=== PATIENT | male | born 1945 | race Caucasian/White ===

== ENCOUNTER 2017-05-07 12:01 | Inpatient (IN) ==
[2017-05-07] MEDS ORDERED: Acetaminophen 325 MG TABLET PO PRN (16:00)
[2017-05-07] MEDS ORDERED: *HR* Dextrose 50 % in Water (Syg) 50 ML SYRINGE IVP PRN (16:03)
[2017-05-07] MEDS ORDERED: Dextrose Gel 15 GM/37.5 ML TUBE PO PRN ×2 (16:03)
[2017-05-07] MEDS ORDERED: D5% in Water 1,000 ML IVC PRN (16:03)
[2017-05-07] MEDS ORDERED: Naloxone 0.4 MG/ML INJ IVP PRN (16:03)
[2017-05-07] MEDS ORDERED: Insulin LISPRO 300 UNITS/3 ML VIAL SQ SCH ×2 (16:30→21:00)
--- NOTE | 2017-05-07 16:34 | Internal Med History&Physical ---
<Praneeth Shelby J - Last Filed: 05/07/17 16:32> Date of Encounter: 05/07/17 Time of Encounter: 16:32 Assessment and Plan (1) Acute on chronic diastolic CHF (congestive heart failure) Current visit: Yes Status: Acute Congestive heart failure secondary to chronic diastolic dysfunction Dyspnea, weight grain, extremity swelling for the last week with an increase in dyspnea over the last 3 days He reports that he was started on 2 L nasal cannula is at increased 4 L nasal cannula last 3 days in order to maintain SPO2 sats greater than 90% -last TTE in 10/15 shows EF of 50% with moderate diastolic dysfunction -CXR today bilateral pleural effusions, moderate left pleural effusion small right. Left basilar opacity may represent atelectasis and/or infiltrate -Vital signs stable -Diuresis to be managed per nephrology as patient has a history of renal transplant -Strict intake and output monitoring -Daily weights -Continuous telemetry, continuous SPO2 monitoring -O2 per nasal cannula titrate to maintain SPO2 greater than 92% -CBCD, CMP in am -Consult cardiology d/t increasing pleural effusions (extensive cardiac history) -Consult nephrology to help with managing diuretics and for further evaluation of renal function and further recommendations -Consult interventional radiology has left pleural effusion will likely need drained (2) Pleural effusion, bilateral Current visit: Yes Status: Acute left greater than right will likely need drained -consult to IR- they have not returned my call as of this time -Stable on nasal canula (3) S/P kidney transplant Current visit: No Status: Chronic (4) History of renal failure Current visit: Yes Status: Acute Serum creatinine stable improved from prior visit Reporting frequent urination but with a small amount of urine each time voiding (5) HTN (hypertension) Current visit: Yes Status: Acute h/o HTN, SBP 170's and 180's today. Resume antihypertensives. 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 transplanted heart: [place] heart Associated angina: without angina Qualified Code(s): I25.810 - Atherosclerosis of coronary artery bypass graft(s) without angina pectoris (9) DVT prophylaxis Current visit: Yes Status: Acute Heprin 5000 units SC BID Internal Medicine - H&P: HPI Chief complaint: progressive dyspnea x3 days; has had dyspnea over the last year Admitted From: Home Plans for Post Hospital Care: Home History of present illness: Mr. Raymond is a 71 year old male with a PMH of COPD, CHF, CABG, renal artery disease, renal transplant, HLD, HTN, and PAD. He presents to [facility] today with a 3-day h/o increasing dyspnea. He reports that last week his BLE were swollen and he required additional lasix to alleviate his symptoms. Since then he has required daily oxygen at 2 L nasal cannula initially due to dyspnea. He reports that for the last 3 days of dyspnea is impressive and his need to increase nasal cannula to 4 L to maintain SPO2 greater than 90%. He denies any fever, chills, chest pain, nausea, vomiting, dysuria, flank pain, or unilateral extremity swelling or pain. Chest x-ray today reveals moderate left and small right pleural effusion. He is being admitted as inpatient as he will likely need drainage in IR of pleural effusion. Past Med Surg Social Fam HX - Past Medical History Medical history: arthritis, CHF, COPD, coronary artery disease, diabetes, dialysis, GERD, GI bleed, hyperlipidemia, hypertension, peripheral artery disease, renal disease, valvular heart disease Psychiatric history: no psych history - Past Surgical History Surgical History: coronary bypass (CABG), heart valve replacement, other - Social History Smoking Status: Former smoker Smokeless Tobacco Status: No Alcohol use: none Drug use: none - Family History Mother Adopted: No Family Member Ethnicity: Non- Living Status: Hx Family Cardiac Disorders: No Hx Family Respiratory Disorders: No Hx Family Cancer: No Hx Family GI Disorders: Yes (Cholecycstectomy) Hx Family Endocrine Disorder: No Hx Family Neuromuscular Disorders: No Hx Family Neurologic Disorders: No Hx Family HEENT Disorders: No Hx Family Autoimmune Disorders: No Internal Medicine - H&P: Meds Acetaminophen [Tylenol] 325 mg PO Q4HR PRN 12/14/14 [History] Aspirin 81 mg PO DAILY 12/14/14 [History] CycloSPORINE, Mod (Neoral) [Neoral] 50 mg PO QAM 12/14/14 [History] Furosemide [Lasix] 40 mg PO BID 12/14/14 [History] Saccharomyces Boulardii [Probiotic] 250 mg PO DAILY 12/14/14 [History] Sulfamethoxazole/Trimeth DS [Bactrim Ds] 1 each PO DAILY 12/14/14 [History] Tamsulosin [Flomax] 0.4 mg PO DAILY 12/14/14 [History] Folic Acid 1 mg PO DAILY #30 tablet 12/29/14 [Rx] Carvedilol [Coreg] 25 mg PO BID 11/11/15 [History] CycloSPORINE, Mod (Neoral) [Neoral] 25 mg PO QPM 11/11/15 [History] Everolimus [Zortress] 1 mg PO DAILY 11/11/15 [History] FLUoxetine HCl [Prozac] 10 mg PO DAILY 11/11/15 [History] amLODIPine [Norvasc] 2.5 mg PO BID 11/11/15 [History] Atropine 1% Opth Drops 1 drop LEFT EYE BID 05/29/16 [History] Calcitriol [Rocaltrol] 0.25 mcg PO DAILY 05/29/16 [History] Insulin ASPART [Novolog Flexpen] 100 unit SQ QID PRN 05/29/16 [History] Insulin Glargine [Lantus] 15 - 20 unit SQ DAILY 05/29/16 [History] Lactobacillus Combination No.8 [Adult Probiotic] 1 tab PO DAILY 05/29/16 [ History] Budesonide/Formoterol 160/4.5 [Symbicort 160/4.5] 2 puff IH BIDR 11/19/16 [ History] Cholecalciferol (Vitamin D3) [Vitamin D] 400 unit PO DAILY 11/19/16 [History] Glimepiride [Amaryl] 2 mg PO DAILY 11/19/16 [History] Albuterol Sulfate [Albuterol Inhaler] 2 puff IH Q4HR PRN #1 [id number] 01/08/17 [Rx] Albuterol Sulfate [Proair Respiclick] 90 mcg IH Q4H 05/07/17 [History] Dulaglutide [Trulicity] 0.75 mg SQ QWEEK 05/07/17 [History] Ferric Carboxymaltose [Injectafer (For Outpatient Infusion)] 750 mg IV QWEEK 09/16 [History] Mv-Mn/FA/Vit K1/Lycop/Lut/Zeax [Ocuvite Eye + Multi Tablet] 1 each PO DAILY 09/16 [History] Umeclidinium [place] [Incruse Ellipta] 62.5 mcg IH DAILY 05/07/17 [History] 3 Allergy/AdvReac Type Severity Reaction Status Date / Time levofloxacin [From Levaquin] Allergy Nausea Verified 02/27/17 10:20 [id number]-Lll-Cjy Reductase Allergy Weakness Verified 11/03/14 10:21 Inhibitor [Statins] All Systems PM: A 10-system review of systems was performed and is negative for pertinent findings except as documented above in the HPI. - Constitutional Constitutional: no chills, no fever(s), no night sweats - EENT Eyes: no change in vision, no discharge, no pain, no photophobia Ears: no ear discharge, no ear pain, no tinnitus Nose, mouth and throat: no dysphagia, no nasal discharge, no neck pain, no sore throat - Cardiovascular Cardiovascular ROS IM: dyspnea, dyspnea on exertion (Worsens with exertion), edema (Denies any current edema however, admits to bilateral lower extremity edema last week), paroxysmal nocturnal dyspnea, no chest pain, no diaphoresis, no lightheadedness, no palpitations, no syncope - Respiratory Respiratory: cough (Productive, however he is unsure of amount as he swells at) , dyspnea, dyspnea on exertion, no hemoptysis, no wheezing, no pain on inspiration, no chest congestion, no excessive phlegm production, no change in phlegm color, no pain with cough - Gastrointestinal Gastrointestinal: abdominal pain (Diffuse, chronic), no diarrhea, no early satiety, no nausea, no vomiting - Genitourinary Genitourinary ROS male: no dysuria, no flank pain - Musculoskeletal Musculoskeletal ROS IM: no numbness, no tingling - Integumentary Integumentary IM: no rash, no unusual bruising - Neurological Neurological ROS: no confusion, no convulsions, no focal weakness, no numbness, no tingling, no tremor(s) - Constitutional Vitals: Temp Pulse Resp BP Pulse Ox 97.5 F L 86 16 188/94 93 05/07/17 14:07 05/07/17 13:45 05/07/17 13:45 05/07/17 13:45 05/07/17 14:21 General appearance: Present: cooperative, A&O X 3, no acute distress, answers questions appropriately - Head Head exam: Present: atraumatic, normocephalic - Eye Eye exam: Present: PERRL, conjuntiva pink, sclera anicteric Pupils: Present: PERRL - Neck Neck exam general surgery: Present: supple, trachea midline. Absent: lymphadenopathy - Respiratory Respiratory exam: Present: rales (Bilateral posterior bases), respiratory distress (Mild), tachypnea. Absent: accessory muscle use, chest wall tenderness , decreased breath sounds, rhonchi, wheezes - Cardiovascular Cardiovascular exam: Present: RRR, +S1, +S2. Absent: diastolic murmur, gallop, JVD, rubs, systolic murmur - GI/Abdominal GI/Abdominal exam: Present: normal bowel sounds, soft, no peritoneal signs. Absent: distended, tenderness - Extremities Exam Extremities exam: Present: normal capillary refill, warm, radial pulses palpable and symmetrical. Absent: calf tenderness, cyanotic, pedal edema - Neurological Exam Neurological exam: Present: CN II-XII intact, oriented X3, no focal deficits. Absent: pronater drift, facial droop, speech deficit - Skin Skin exam: Present: dry, intact Internal Med - H&P Results - EKG Data -: EKG Interpreted by Myself - EKG Data EKG comments: 05/07/17 16:36 Normal sinus rhythm with first-degree AV block <Darian Avila - Last Filed: 05/07/17 18:09> Date of Encounter: 05/07/17 Internal Medicine - H&P: HPI History of present illness: Mr. Raymond is a 71 year old male All Systems PM: A 10-system review of systems was performed and is negative for pertinent findings except as documented above in the HPI. - Constitutional Vitals: Temp Pulse Resp BP Pulse Ox 97.5 F L 86 16 188/94 93 05/07/17 14:07 05/07/17 13:45 05/07/17 13:45 05/07/17 13:45 05/07/17 14:21 Internal Med - H&P Results - Labs Labs: Cardiac Enzymes 05/07/17 Range/Units 16:42 Troponin I 0.03 (< 0.04) ng/mL - Attending Attestation I examined this patient and my medical decision-making was reviewed with the Resident Physician. I agree with the documented findings, disposition and treatment plan as described except to the extent set forth below.
[2017-05-07] MEDS: Isosorbide MONOnitrate (24 HR) 60 MG TAB.ER.24H PO SCH (17:53)
[2017-05-07] MEDS: *HR* Heparin 5,000 UNIT/ML VIAL SQ SCH (17:53)
[2017-05-07] MEDS: CycloSPORINE, Mod (Neoral) 25 MG CAPSULE PO SCH (18:15)
[2017-05-07] MEDS ORDERED: Patient Taking Own Medication 1 EACH PO SCH ×2 (18:19→18:25)
--- NOTE | 2017-05-07 18:41 | Event Note ---
Date of Encounter: 05/07/17 Time of Encounter: 18:[address] Green who has agreed to see in the morning for possible drainage of Lt pleural effusion.
[2017-05-07] MEDS: Budesonide/Formoterol 160/4.5 MDI IH SCH (19:56)
[2017-05-07] MEDS: amLODIPine 5 MG TABLET PO SCH (23:11)
[2017-05-07] MEDS: Atropine Sulfate 1% 40 DROP/2 ML BOTTLE LEFT EYE SCH (23:15)
[2017-05-08] MEDS: Insulin LISPRO 300 UNITS/3 ML VIAL SQ SCH ×5 (01:13→21:02)
[2017-05-08] MEDS: *HR* Heparin 5,000 UNIT/ML VIAL SQ SCH ×2 (05:00→16:48)
[2017-05-08 05:32] LABS: Hematocrit 35.1 % (37.5-50.1); Hemoglobin 9.9 g/dL (12.9-16.9); Immature Granulocytes % 0.7 % (0-4); Lymphocytes # 0.2 K/mcL (0.6-4.6); Lymphocytes % 13.9 %; Mean Corpuscular HGB Conc 28.2 g/dL (31.6-35.5); Mean Corpuscular Hemoglobin 22.6 pg (28.0-33.3); Mean Platelet Volume 11.2 fL (9.4-12.4); Monocytes # 0.1 K/mcL (0.0-1.3); Neutrophils # 1.2 K/mcL (1.6-8.9); Platelet Count 213 K/mcL (140-400); Red Blood Count 4.39 M/mcL (4.19-5.50); Red Cell Distribution Width 21.1 % (11.5-14.5); Segmented Neutrophils % 79.4 %
[2017-05-08 05:41] LABS: Albumin 3.5 g/dL (3.5-5.7); Albumin/Globulin Ratio 1.2 (1.1-2.2); Bilirubin,Total 0.8 mg/dL (0.3-1.0); Calcium 9.2 mg/dL (8.6-10.3); Globulin 2.9 g/dL (2.4-3.5); Potassium 4.6 mEq/L (3.5-5.1); Total Protein 6.4 g/dL (6.4-8.9)
[2017-05-08 06:10] LABS: Anisocytosis 2+ (Not Present)
[2017-05-08 06:11] LABS: Microcytosis Present (Not Present); Platelet Estimate Normal (Normal)
[2017-05-08] MEDS: Budesonide/Formoterol 160/4.5 MDI IH SCH ×2 (07:51→19:37)
[2017-05-08] MEDS: FLUoxetine HCl 10 MG CAPSULE PO SCH (08:32)
[2017-05-08] MEDS: CycloSPORINE, Mod (Neoral) 25 MG CAPSULE PO SCH ×2 (08:32→16:45)
[2017-05-08] MEDS: Lactobacillus 1 EACH CAP.SPRINK PO SCH (08:32)
[2017-05-08] MEDS: Multivit/Ca/Min/Fe/FA 1 TAB TABLET PO SCH (08:32)
[2017-05-08] MEDS: Cholecalciferol (D-3) 1,000 UNIT TABLET PO SCH (08:32)
[2017-05-08] MEDS: Folic Acid 1 MG TABLET PO SCH (08:32)
[2017-05-08] MEDS: Isosorbide MONOnitrate (24 HR) 60 MG TAB.ER.24H PO SCH (08:33)
[2017-05-08] MEDS: amLODIPine 5 MG TABLET PO SCH ×2 (08:33→21:03)
[2017-05-08] MEDS: Sulfamethoxazole/Trimeth DS 1 EACH TABLET PO SCH (08:33)
[2017-05-08] MEDS: Aspirin 81 MG TAB.CHEW PO SCH (08:34)
[2017-05-08] MEDS: Atropine Sulfate 1% 40 DROP/2 ML BOTTLE LEFT EYE SCH ×2 (08:36→21:02)
[2017-05-08] MEDS: (Everolimus [Zortress] 0.5 MG) PO SCH ×2 (08:37→21:03)
[2017-05-08] MEDS ORDERED: Insulin DETEMIR 100 UNIT/ML X5UNITS SQ SCH ×2 (09:00→09:29)
[2017-05-08] MEDS ORDERED: (Umeclidinium Bromide [Incruse Ellipta] 62.5 MCG) IH SCH (09:00)
[2017-05-08] MEDS ORDERED: SACCHAROMYCES BOULARDII 250 MG PO SCH (09:00)
--- NOTE | 2017-05-08 09:10 | Internal Med Progress Note ---
<Gato Whaley - Last Filed: 05/08/17 17:54> Date of Encounter: 05/08/17 Time of Encounter: 09:10 - Assessment and plan (1) Acute on chronic diastolic CHF (congestive heart failure) Current Visit: Yes Status: Acute Assessment and plan: Patient admitted with increasing shortness of breath, cough, elevated BNP greater than 700, chest x-ray demonstrating bilateral pleural effusions with left greater than right. History of left sided pleural effusions with a history of CABG in 2011. TTE 09/2016 showed 50%. Mild to moderate concentric left ventricular hypertrophy. Moderate left ventricular diastolic dysfunction with elevated filling pressures Atypical septal motion consistent with post-operative status. Normal RV size with low normal function. Mild mitral regurgitation. S/p bioprosthetic aortic valve replacement. Aortic valve is not well visualized. There may be trivial paravalvular regurgitation (PSAX view). Mild pulmonic regurgitation. Trivial pericardial effusion. - History of bioprosthetic AVR - Status post renal transplant, chronic kidney disease likely contributing to volume overload. - Patient has had improvement in respiratory status and decreased oxygen demand since starting IV Lasix and thoracentesis this morning with 900 mL out. - Clinically has mild increased vascular overload, most likely improved since admission. Oxygen saturations 90-92% on room air. Plan: - Appreciate cardiology's input - Continue IV Lasix 40 mg twice a day - Continue 2 g sodium restriction, 2 L fluid restriction - Daily weights, strict intake output monitoring - Maximize cardiac medications: Continue aspirin, Coreg, Lasix. Avoid lisinopril the setting of history of renal transplant and stable chronic kidney disease. (2) COPD (chronic obstructive pulmonary disease) Current Visit: Yes Status: Acute Assessment and plan: COPD history, stable. Qualifiers: Emphysema type: unspecified Qualified Code(s): J43.9 - Emphysema, unspecified (3) History of aortic valve replacement with bioprosthetic valve Current Visit: Yes Status: Acute Assessment and plan: Continue current anticoagulation. Stable. (4) S/P kidney transplant Current Visit: No Status: Chronic Assessment and plan: Documented history. Continue current immunosuppressive medications. (5) DM type 2 (diabetes mellitus, type 2) Current Visit: Yes Status: Acute Assessment and plan: Uncontrolled type 2 diabetes, glucose greater than 400. Plan: - Subcutaneous Levemir 20 units twice a day - Low-dose sliding-scale insulin - Before meals at bedtime glucose checks. Qualifiers: Diabetes mellitus complication status: with circulatory complication Qualified Code(s): E11.51 - Type 2 diabetes mellitus with diabetic peripheral angiopathy without gangrene; Z79.4 - manager long term care (current) use of insulin; Z79.4 - snf (current) use of insulin; Z79.4 - manager long term care (current) use of insulin ; Z79.4 - snf (current) use of insulin (6) DVT prophylaxis Current Visit: Yes Status: Acute Assessment and plan: SQ Heparin - Subjective Interval history: Mr. Raymond 71yo Male seen and evaluated patient bedside this morning. He is alert and awake interactive no acute distress. He states that his breathing is much improved after his thoracentesis which she said was uncomfortable. He denies any other significant problems. He does mention that he is unsure which medications he is supposed to be taking or if he is taking the right. He only takes 6 of his medications but states that he has been taking his renal medications religiously. Prior to coming in he did admit to shortness of breath that had been worsening and difficulty with lying flat. He had discussed his worsening shortness of breath with his primary care provider and was advised at that time to increase his Lasix by mouth to 2 times in the morning and once at night. - Constitutional Vitals: Temp Pulse Resp BP Pulse Ox 97.6 F 77 16 127/61 95 05/08/17 07:05 05/08/17 07:05 05/08/17 07:54 05/08/17 07:05 05/08/17 07:54 General appearance: Present: cooperative, A&O X 3, no acute distress, answers questions appropriately Exam: General: Patient alert, awake, oriented 3, interactive, in no acute distress HEENT: Normocephalic, atraumatic, pupils equal reactive to light, nasal cavity patent and open septum median position, oral mucosa moist, uvula midline, neck supple trachea midline no palpable lymphadenopathy, no thyromegaly. Chest: Symmetric bilateral correlating with respiratory effort, effort nonlabored. Cardiac: Irregularly irregular heart rate and rhythm, grade 2/6 systolic ejection murmur. Radial pulses 2+ bilateral, posterior tibial and dorsal pedal pulses 2+ bilateral. Respiratory: Diminished in left lower lung base, clear to auscultation all lung thakkar. Abdomen: Soft, nontender, positive bowel sounds, no palpable masses appreciated on examination Extremities: Symmetric bilateral, bilateral lower extremities without erythema or edema patient moving all 4 extremities spontaneously. Neurologic: No focal deficits appreciated on examination. Face symmetric, muscle strength symmetric bilateral upper and lower extremities. Internal Medicine: Result - Labs CBC & Chem 7: 05/08/17 04:09 05/08/17 04:09 Labs: Short CBC 05/08/17 Range/Units 04:09 WBC 1.5 L D (4.3-11.1) K/mcL Hgb 9.9 L D (12.9-16.9) g/dL Hct 35.1 L (37.5-50.1) % Plt Count 213 (140-400) K/mcL Neutrophils # 1.2 L (1.6-8.9) K/mcL BMP 05/08/17 04:09 Sodium 133 L Potassium 4.6 Chloride 103 Carbon Dioxide 24 BUN 51 H Creatinine 2.46 H Glucose 339 H Calcium 9.2 Cardiac Enzymes 05/07/17 Range/Units 16:42 Troponin I 0.03 (< 0.04) ng/mL Liver Function 05/08/17 Range/Units 04:09 Total Bilirubin 0.8 (0.3-1.0) mg/dL AST 11 L (13-39) Units/L ALT 9 (7-52) Units/L Alkaline Phosphatase 140 H (34-104) Units/L Albumin 3.5 (3.5-5.7) g/dL Consult Discharge Plan - Plan Referrals: Satya Singh MD [Primary Care Provider] - <Jose L Hernandez - Last Filed: 05/08/17 18:30> Date of Encounter: 05/08/17 - Assessment and plan (1) Acute on chronic diastolic CHF (congestive heart failure) Current Visit: Yes Status: Acute (2) CKD (chronic kidney disease) stage 4, GFR 15-29 ml/min Current Visit: Yes Status: Chronic (3) COPD (chronic obstructive pulmonary disease) Current Visit: Yes Status: Acute Qualifiers: Emphysema type: unspecified Qualified Code(s): J43.9 - Emphysema, unspecified (4) DM (diabetes mellitus) Current Visit: Yes Status: Chronic Qualifiers: Diabetes mellitus type: type 2 Diabetes mellitus complication status: with hyperglycemia Diabetes mellitus manager long term care insulin use: with custodial use Qualified Code(s): E11.65 - Type 2 diabetes mellitus with hyperglycemia; Z79.4 - snf (current) use of insulin; Z79.4 - snf (current) use of insulin ; Z79.4 - manager long term care (current) use of insulin; Z79.4 - snf (current) use of insulin (5) HTN (hypertension) Current Visit: Yes Status: Chronic Qualifiers: Hypertension type: essential hypertension Qualified Code(s): I10 - Essential (primary) hypertension (6) S/P kidney transplant Current Visit: No Status: Chronic (7) Anemia Current Visit: No Status: Chronic Qualifiers: Anemia type: due to chronic kidney disease Chronic kidney disease stage: stage 4 (severe) Qualified Code(s): N18.4 - Chronic kidney disease, stage 4 ( severe); D63.1 - Anemia in chronic kidney disease; D63.1 - Anemia in chronic kidney disease - Constitutional Vitals: Temp Pulse Resp BP Pulse Ox 97.7 F 81 16 127/59 91 05/08/17 15:31 05/08/17 15:31 05/08/17 15:31 05/08/17 15:31 05/08/17 15:31 Internal Medicine: Result - Labs CBC & Chem 7: 05/08/17 04:09 05/08/17 04:09 Labs: Short CBC 05/08/17 Range/Units 04:09 WBC 1.5 L D (4.3-11.1) K/mcL Hgb 9.9 L D (12.9-16.9) g/dL Hct 35.1 L (37.5-50.1) % Plt Count 213 (140-400) K/mcL Neutrophils # 1.2 L (1.6-8.9) K/mcL BMP 05/08/17 04:09 Sodium 133 L Potassium 4.6 Chloride 103 Carbon Dioxide 24 BUN 51 H Creatinine 2.46 H Glucose 339 H Calcium 9.2 Liver Function 05/08/17 Range/Units 04:09 Total Bilirubin 0.8 (0.3-1.0) mg/dL AST 11 L (13-39) Units/L ALT 9 (7-52) Units/L Alkaline Phosphatase 140 H (34-104) Units/L Albumin 3.5 (3.5-5.7) g/dL - Impressions Impressions Thoracentesis Ultrasound 05/08/17 00:00 IMPRESSION: 1. Successful ultrasound guided left thoracentesis. D/ / Carlin Green MD / Carlin Green MD Interpreting Provider: Carlin Green MD Chest X-Ray 05/08/17 09:27 IMPRESSION: 1. Decrease in the left pleural effusion. No pneumothorax. 2. Mild improvement in the pulmonary edema. D/ / Wilder Bay MD / Wilder Bay MD Interpreting Provider: Wilder Bay MD - Attending Attestation I examined this patient and my medical decision-making was reviewed with the Resident Physician on 05/08/17. I agree with the documented findings, disposition and treatment plan as described except to the extent set forth below. Mr Raymond is currently admitted for acute on chronic diastolic heart failure. He remains moderate to high risk due to potential for worsening clinical status. Mr Raymond is breathing better after thoracentesis today. No fever. No cough. No worsening edema. Exam Alert. Comfortable Mucus membranes dry Heart not tachy No wheeze abd soft I/P 1. CHF 2. CKD 4 Further diagnoses and plan as above.
--- NOTE | 2017-05-08 09:10 | Nephrology Consult Note ---
Date of Encounter: 05/08/17 Time of Encounter: 09:04 Assessment and Plan (1) CKD (chronic kidney disease) stage 4, GFR 15-29 ml/min Current Visit: Yes Status: Acute Renal function stable CKD stage 4 at baseline Continue strict I&O and daily weights. Monitor BMP. Avoid nephrotoxins Continue current management (2) S/P kidney transplant Current Visit: No Status: Chronic Chronic renal failure, S/P renal transplant in 2012 Avoid nephrotoxins Continue immunosuppressant medications at this time (3) Acute on chronic diastolic CHF (congestive heart failure) Current Visit: Yes Status: Acute Echo 10/24/16 revealed LVEF 50%, bioprosthetic aortic valve with trivial parpavalvular regurgitation Cardiology following, TTE pending (4) Anemia Current Visit: No Status: Chronic Anemia of chronic disease vs. iron deficiency anemia Recent labs on 05/01/17 reveal Iron 22, % iron sat 6%, transferrin 243, ferritin 285, Vit B12 level 503, Folate 17.2 Patient is on Ferahema as an outpatient Continue to monitor Qualifiers: Anemia type: other cause Other causes of anemia: other cause, not classified Qualified Code(s): D64.89 - Other specified anemias (5) Drug-induced leukopenia Current Visit: Yes Status: Acute Leukopenia likely due to immunosuppressant medications in the setting of kidney transplant Continue to monitor (6) History of aortic valve replacement with bioprosthetic valve Current Visit: Yes Status: Acute Management per primary team (7) HTN (hypertension) Current Visit: Yes Status: Acute Continue home meds Qualifiers: Hypertension type: essential hypertension Qualified Code(s): I10 - Essential (primary) hypertension (8) DM (diabetes mellitus) Current Visit: Yes Status: Acute Management per primary team Qualifiers: Diabetes mellitus type: type 2 Diabetes mellitus complication status: with unspecified complications Diabetes mellitus custodial insulin use: with termite control representative use Qualified Code(s): E11.8 - Type 2 diabetes mellitus with unspecified complications; Z79.4 - termite control representative (current) use of insulin; Z79.4 - termite control representative ( current) use of insulin; Z79.4 - termite control representative (current) use of insulin; Z79.4 - termite control representative (current) use of insulin History of Present Illness - Reason for Consult Consult date: 05/07/17 Chronic Kidney Disease (h/o renal transplant; medication management) Requesting physician: Praneeth Shelby - Chief Complaint SOB - History of Present Illness Mr. Raymond is a 71 year old male with a PMH of CHF, HTN, DM, renal artery disease, immunosuppressant use s/p kidney transplant in 2012, and history of porcine aortic valve replacement who presented c/o increasing SOB for the past 3 days prior to arrival. He reports associated leg swelling and requiring additional doses of home Lasix from 40 mg BID to 80 mg in the morning and 40 mg in the evening without relief of current symptoms. He denies fever, chills, CP, N/V/D, dysuria, flank pain, or decreased urination. Chest x-ray revealed moderate left and small right pleural effusions and patient underwent left thoracentesis this AM. Nephrology was consulted for medication management in the setting of renal transplant. Patient's fiberglass pipe covering supervisor is Dr. Hernandez. Past Med Surg Social Fam HX - Past Medical History Medical history: arthritis, CHF, COPD, coronary artery disease, diabetes, dialysis (remote), GERD, GI bleed, hyperlipidemia, hypertension, peripheral artery disease, renal disease, valvular heart disease Psychiatric history: no psych history - Past Surgical History Surgical History: coronary bypass (CABG), heart valve replacement, transplant ( renal), other - Social History Smoking Status: Former smoker Smokeless Tobacco Status: No Alcohol use: none Drug use: none - Family History Mother Adopted: No Family Member Ethnicity: Non- Living Status: Hx Family Cardiac Disorders: No Hx Family Respiratory Disorders: No Hx Family Cancer: No Hx Family GI Disorders: Yes (Cholecycstectomy) Hx Family Endocrine Disorder: No Hx Family Neuromuscular Disorders: No Hx Family Neurologic Disorders: No Hx Family HEENT Disorders: No Hx Family Autoimmune Disorders: No Medications and Allergies Acetaminophen [Tylenol] 325 mg PO Q4HR PRN 12/14/14 [History] Aspirin 81 mg PO DAILY 12/14/14 [History] CycloSPORINE, Mod (Neoral) [Neoral] 50 mg PO QAM 12/14/14 [History] Furosemide [Lasix] 40 mg PO BID 12/14/14 [History] Saccharomyces Boulardii [Probiotic] 250 mg PO DAILY 12/14/14 [History] Sulfamethoxazole/Trimeth DS [Bactrim Ds] 1 each PO DAILY 12/14/14 [History] Tamsulosin [Flomax] 0.4 mg PO DAILY 12/14/14 [History] Folic Acid 1 mg PO DAILY #30 tablet 12/29/14 [Rx] Carvedilol [Coreg] 25 mg PO BID 11/11/15 [History] CycloSPORINE, Mod (Neoral) [Neoral] 25 mg PO QPM 11/11/15 [History] Everolimus [Zortress] 0.5 mg PO BID 11/11/15 [History] FLUoxetine HCl [Prozac] 10 mg PO DAILY 11/11/15 [History] amLODIPine [Norvasc] 2.5 mg PO BID 11/11/15 [History] Atropine 1% Opth Drops 1 drop LEFT EYE BID 05/29/16 [History] Calcitriol [Rocaltrol] 0.25 mcg PO DAILY 05/29/16 [History] Insulin ASPART [Novolog Flexpen] 100 unit SQ QID PRN 05/29/16 [History] Insulin Glargine [Lantus] 15 - 20 unit SQ DAILY 05/29/16 [History] Lactobacillus Combination No.8 [Adult Probiotic] 1 tab PO DAILY 05/29/16 [ History] Budesonide/Formoterol 160/4.5 [Symbicort 160/4.5] 2 puff IH BIDR 11/19/16 [ History] Cholecalciferol (Vitamin D3) [Vitamin D] 400 unit PO DAILY 11/19/16 [History] Glimepiride [Amaryl] 2 mg PO DAILY 11/19/16 [History] Albuterol Sulfate [Albuterol Inhaler] 2 puff IH Q4HR PRN #1 hfa.aer.ad 01/08/17 [Rx] Albuterol Sulfate [Proair Respiclick] 90 mcg IH Q4H 05/07/17 [History] Dulaglutide [Trulicity] 0.75 mg SQ QWEEK 05/07/17 [History] Ferric Carboxymaltose [Injectafer (For Outpatient Infusion)] 750 mg IV QWEEK 09/16 [History] Mv-Mn/FA/Vit K1/Lycop/Lut/Zeax [Ocuvite Eye + Multi Tablet] 1 each PO DAILY 09/16 [History] Umeclidinium [place] [Incruse Ellipta] 62.5 mcg IH DAILY 05/07/17 [History] 3 Allergy/AdvReac Type Severity Reaction Status Date / Time levofloxacin [From Levaquin] Allergy Nausea Verified 02/27/17 10:20 Gmtgknv-Svy-Luz Reductase Allergy Weakness Verified 11/03/14 10:21 Inhibitor [Statins] Review of Systems Constitutional: stops breathing during sleep, weakness, no chills, no fatigue, no fever(s), no lethargy Nose, mouth and throat: no nasal congestion, no sore throat Cardiovascular: dyspnea, edema, orthopnea, paroxysmal nocturnal dyspnea, pedal edema Respiratory: dyspnea, no chest congestion Gastrointestinal: no abdominal pain, no constipation, no nausea, no vomiting Genitourinary Male: no dysuria, no urinary frequency, no urinary urgency Musculoskeletal: no back pain, no numbness, no tingling Psychiatric: confusion, no anxiety, no depression Endocrine: no palpitations, no polydipsia, no polyphagia, no polyuria Exam - Vital Signs Vital signs: Initial Vital Signs Pulse Resp BP Pulse Ox 86 16 188/94 95 05/07/17 13:45 05/07/17 13:45 05/07/17 13:45 05/07/17 13:45 Vital Signs - Last 8 Hours Temp Pulse Resp BP Pulse Ox 05/08/17 07:54 16 95 05/08/17 07:05 97.6 F 77 16 127/61 94 05/08/17 05:03 96 05/08/17 04:14 58 16 155/77 95 Intake and Output 05/07/17 05/08/17 05/08/17 23:59 07:59 15:59 Intake Total 360 / 360 360 / 360 Output Total 400 / 400 0 / 0 Balance -40 / -40 360 / 360 Intake: Oral 360 / 360 360 / 360 Output: Urine 400 / 400 0 / 0 Other: Meal Dinner Percent of Meal Consumed 100% Weight 91.4 kg Blood Glucose* 451 303 Patient Weight 05/08/17 23:59 Weight 91.4 kg - General Appearance General appearance: well-developed, well-nourished, appears started age EENT: ATNC, mucous membranes dry Neck: supple Additional Comments: demininshed breath sounds LLL Cardiology: mid-systolic murmur, edema (1+ pedal edema), regular rate, regular rhythm Gastrointestinal: normoactive bowel sounds, no guarding, obese Integumentary: no rash, warm and dry Neurologic: no focal deficit, alert and oriented x3 Musculoskeletal: no deformities, no erythema, no cyanosis Psychiatric: mood/affect appropriate, cooperative Results - Lab Results 05/08/17 04:09 05/08/17 04:09 Most recent lab results Calcium 9.2 mg/dL (8.6-10.3) 05/08/17 04:09 Consult Discharge Plan - Plan Referrals: Satya Singh MD [Primary Care Provider] -
--- NOTE | 2017-05-08 09:27 | IR Procedure Note ---
Date of procedure: 05/08/17 Consent Obtained: Written consent Timeout: Correct patient and procedure verified, Correct site verified, Time out performed, Skin prep completed Local anesthetic: Lidocaine 1% Indications: SOB with left pleural effusion Procedure Performed: Left thoracentesis Was there an assistant service manager present: No Estimated blood loss (cc): 0 Complications: None; Tolerated procedure well Specimen: sent
--- NOTE | 2017-05-08 09:45 | Internal Med Progress Note ---
Date of Encounter: 05/08/17 Time of Encounter: 09:44 - Assessment and plan (1) Anemia Current Visit: No Status: Chronic Qualifiers: Anemia type: other cause Other causes of anemia: other cause, not classified Qualified Code(s): D64.89 - Other specified anemias (2) Acute on chronic diastolic CHF (congestive heart failure) Current Visit: Yes Status: Acute (3) DVT prophylaxis Current Visit: Yes Status: Acute - Constitutional Vitals: Temp Pulse Resp BP Pulse Ox 97.6 F 77 16 127/61 95 05/08/17 07:05 05/08/17 07:05 05/08/17 07:54 05/08/17 07:05 05/08/17 07:54 General appearance: Present: cooperative, A&O X 3, no acute distress, answers questions appropriately Internal Medicine: Result - Labs CBC & Chem 7: 05/08/17 04:09 05/08/17 04:09 Labs: Short CBC 05/08/17 Range/Units 04:09 WBC 1.5 L D (4.3-11.1) K/mcL Hgb 9.9 L D (12.9-16.9) g/dL Hct 35.1 L (37.5-50.1) % Plt Count 213 (140-400) K/mcL Neutrophils # 1.2 L (1.6-8.9) K/mcL BMP 05/08/17 04:09 Sodium 133 L Potassium 4.6 Chloride 103 Carbon Dioxide 24 BUN 51 H Creatinine 2.46 H Glucose 339 H Calcium 9.2 Cardiac Enzymes 05/07/17 Range/Units 16:42 Troponin I 0.03 (< 0.04) ng/mL Liver Function 05/08/17 Range/Units 04:09 Total Bilirubin 0.8 (0.3-1.0) mg/dL AST 11 L (13-39) Units/L ALT 9 (7-52) Units/L Alkaline Phosphatase 140 H (34-104) Units/L Albumin 3.5 (3.5-5.7) g/dL Consult Discharge Plan - Plan Referrals: Satya Singh MD [Primary Care Provider] -
[2017-05-08] MEDS ORDERED: Insulin DETEMIR 100 UNIT/ML X5UNITS SQ ONE (10:04)
[2017-05-08] MEDS: Furosemide 40 MG/4 ML VIAL IVP SCH ×2 (12:21→16:45)
--- NOTE | 2017-05-08 13:00 | Cardiology Consult Note ---
Date of Encounter: 05/08/17 Time of Encounter: 11:30 Assessment and Plan (1) CHF (congestive heart failure) Current Visit: No Status: Acute Acute on chronic diastolic CHF. Reports eating high sodium diet. He eats TV dinners and canned soup. Declined motion picture equipment supervisor consult, says it will not change anything. CXR shows bilateral pleural effusions with L greater than R. H/o chronic left sided pleural effusion since CABG in 2011. S/p thoracentesis with 900 cc removed. Agree with IV lasix until euvolemic. Nephrology was consulted due to history of kidney transplant. Kidney function is stable. CHF education reviewed. TTE 09/2016 showed 50%. Mild to moderate concentric left ventricular hypertrophy. Moderate left ventricular diastolic dysfunction with elevated filling pressures Atypical septal motion consistent with post-operative status. Normal RV size with low normal function. Mild mitral regurgitation. S/p bioprosthetic aortic valve replacement. Aortic valve is not well visualized. There may be trivial paravalvular regurgitation (PSAX view). Mild pulmonic regurgitation. Trivial pericardial effusion. Continue strict I&O and daily weights. Monitor BMP. CHF education reviewed. Qualifiers: Congestive heart failure type: unspecified congestive heart failure type Congestive heart failure chronicity: chronic Qualified Code(s): I50.9 - Heart failure, unspecified (2) CAD (coronary artery disease) of artery bypass graft Current Visit: Yes Status: Chronic H/o of 4v CABG and bioprosthetic AVR in 2011. He admits to chest heaviness associated with his SOB prior to admission. Now pain free. Troponin negative. EKG shows SR with LBBB. Known LBBB. Check TTE. Continue asa, statin, and bb. Qualifiers: [place] vs. transplanted heart: [place] heart Associated angina: without angina Qualified Code(s): I25.810 - Atherosclerosis of coronary artery bypass graft(s) without angina pectoris Discussion w patient/family: The assessment and plan as outlined above was discussed with the patient and/or family members who expressed understanding and agreement. All questions were answered. Thank you for involving us in the care of your patient. Please call with any questions. History of Present Illness Consult date: 05/08/17 Requesting physician: Gato Whaley Consult reason: DCHF Chief complaint: SOB, chest heaviness History of present illness: Mr. Raymond is a 71 year old male with a past medical history of 4V CABG and bio -prosthetic AVR in 2011, kidney transplant in 2013, DM, HTN, HLD, PVD, and COPD on home O2. He presented to [facility] with increasing SOB and BLE edema. Admits to chest heaviness with is SOB. Reports he was recently recommended to increase his lasix from 40 mg BID to 80 mg in the morning and 40 mg in the evening. His symptoms initially improved. Over the past three days his SOB returned and he required a higher amount of his home oxygen to keep his oxygen saturation above 90%. He underwent thoracentesis this morning with IR. Reports improvement in symptoms since admission. Past Med Surg Social Fam HX - Past Medical History Medical history: arthritis, CHF, COPD, coronary artery disease, diabetes, dialysis (remote), GERD, GI bleed, hyperlipidemia, hypertension, peripheral artery disease, renal disease, valvular heart disease Psychiatric history: no psych history - Past Surgical History Surgical History: coronary bypass (CABG), heart valve replacement, transplant ( renal), other - Social History Smoking Status: Former smoker Smokeless Tobacco Status: No Alcohol use: none Drug use: none - Family History Mother Adopted: No Family Member Ethnicity: Non- Living Status: Hx Family Cardiac Disorders: No Hx Family Respiratory Disorders: No Hx Family Cancer: No Hx Family GI Disorders: Yes (Cholecycstectomy) Hx Family Endocrine Disorder: No Hx Family Neuromuscular Disorders: No Hx Family Neurologic Disorders: No Hx Family HEENT Disorders: No Hx Family Autoimmune Disorders: No Medications and Allergies Acetaminophen [Tylenol] 325 mg PO Q4HR PRN 12/14/14 [History] Aspirin 81 mg PO DAILY 12/14/14 [History] CycloSPORINE, Mod (Neoral) [Neoral] 50 mg PO QAM 12/14/14 [History] Furosemide [Lasix] 40 mg PO BID 12/14/14 [History] Saccharomyces Boulardii [Probiotic] 250 mg PO DAILY 12/14/14 [History] Sulfamethoxazole/Trimeth DS [Bactrim Ds] 1 each PO DAILY 12/14/14 [History] Tamsulosin [Flomax] 0.4 mg PO DAILY 12/14/14 [History] Folic Acid 1 mg PO DAILY #30 tablet 12/29/14 [Rx] Carvedilol [Coreg] 25 mg PO BID 11/11/15 [History] CycloSPORINE, Mod (Neoral) [Neoral] 25 mg PO QPM 11/11/15 [History] Everolimus [Zortress] 0.5 mg PO BID 11/11/15 [History] FLUoxetine HCl [Prozac] 10 mg PO DAILY 11/11/15 [History] amLODIPine [Norvasc] 2.5 mg PO BID 11/11/15 [History] Atropine 1% Opth Drops 1 drop LEFT EYE BID 05/29/16 [History] Calcitriol [Rocaltrol] 0.25 mcg PO DAILY 05/29/16 [History] Insulin ASPART [Novolog Flexpen] 100 unit SQ QID PRN 05/29/16 [History] Insulin Glargine [Lantus] 15 - 20 unit SQ DAILY 05/29/16 [History] Lactobacillus Combination No.8 [Adult Probiotic] 1 tab PO DAILY 05/29/16 [ History] Budesonide/Formoterol 160/4.5 [Symbicort 160/4.5] 2 puff IH BIDR 11/19/16 [ History] Cholecalciferol (Vitamin D3) [Vitamin D] 400 unit PO DAILY 11/19/16 [History] Glimepiride [Amaryl] 2 mg PO DAILY 11/19/16 [History] Albuterol Sulfate [Albuterol Inhaler] 2 puff IH Q4HR PRN #1 hfa.aer.ad 01/08/17 [Rx] Albuterol Sulfate [Proair Respiclick] 90 mcg IH Q4H 05/07/17 [History] Dulaglutide [Trulicity] 0.75 mg SQ QWEEK 05/07/17 [History] Ferric Carboxymaltose [Injectafer (For Outpatient Infusion)] 750 mg IV QWEEK 09/16 [History] Mv-Mn/FA/Vit K1/Lycop/Lut/Zeax [Ocuvite Eye + Multi Tablet] 1 each PO DAILY 09/16 [History] Umeclidinium [place] [Incruse Ellipta] 62.5 mcg IH DAILY 05/07/17 [History] 3 Allergy/AdvReac Type Severity Reaction Status Date / Time levofloxacin [From Levaquin] Allergy Nausea Verified 02/27/17 10:20 Dwqynmr-Nyr-Gaq Reductase Allergy Weakness Verified 11/03/14 10:21 Inhibitor [Statins] All Systems Review: A 10-system review of systems was performed and is negative for pertinent findings except as documented above in the HPI. Physical Examination Vital Signs, Last 4 Hours Temp Pulse Resp BP Pulse Ox 05/08/17 11:52 97 F L 77 16 135/55 90 05/08/17 11:09 16 90 General: Conversant, No Apparent Distress HEENT: Atraumatic, Normocephaly, Mucus Membranes Moist Neck: No JVD, Normal carotid pulses Cardiac: Other (Respirations shallow. Diminished breath sounds. ) Lungs: Normal Breath Sounds, No Wheeze, Rales, Rhonchi Neuro: Alert and responsive, No focal deficits noted Abdomen: Soft, Non-Tender Skin: No rashes noted on visualized skin Musculoskeletal: No Chest Wall Tenderness Extremities: No Clubbing, No Cyanosis, Normal Pulses, Other (2+ BLE edema) Results 05/08/17 04:09 05/08/17 04:09 Lab Results 05/07/17 05/08/17 05/08/17 16:42 04:09 04:09 WBC 1.5 L D Hgb 9.9 L D Hct 35.1 L Plt Count 213 Sodium 133 L Potassium 4.6 Chloride 103 Carbon Dioxide 24 BUN 51 H Creatinine 2.46 H Glucose 339 H Calcium 9.2 Total Bilirubin 0.8 AST 11 L ALT 9 Alkaline Phosphatase 140 H Troponin I 0.03 - Imaging and Cardiology Echo: report reviewed - EKG Interpretation EKG results cardiology: personally reviewed Consult Discharge Plan - Plan Referrals: Satya Singh MD [Primary Care Provider] -
[2017-05-08] MEDS: Insulin DETEMIR 100 UNIT/ML X5UNITS SQ SCH (21:07)
[2017-05-08 21:38] LABS: RBC,Pleural Fluid 0.022 M/mcL
[2017-05-08 21:58] LABS: LDH,Pleural Fluid 99 Units/L (No Ref Range); Total Protein,Pleural Fluid < 3.0 g/dL (No Ref Range)
[2017-05-08 22:40] LABS: Appearance of Pleural Fl Hazy (Clear)
[2017-05-09 04:52] LABS: Glucose,Pleural Fluid 361 mg/dL (No Ref Range)
[2017-05-09] MEDS: *HR* Heparin 5,000 UNIT/ML VIAL SQ SCH ×2 (05:41→16:07)
[2017-05-09 06:56] LABS: Hematocrit 33.9 % (37.5-50.1); Hemoglobin 9.8 g/dL (12.9-16.9); Immature Granulocytes % 0.4 % (0-4); Immature Platelets 5.2 % (1.1-6.1); Lymphocytes # 0.2 K/mcL (0.6-4.6); Lymphocytes % 4.3 %; Mean Corpuscular HGB Conc 28.9 g/dL (31.6-35.5); Mean Corpuscular Volume 79.4 fL (83.0-100.0); Mean Platelet Volume 10.2 fL (9.4-12.4); Monocytes # 0.3 K/mcL (0.0-1.3); Monocytes % 6.7 %; Neutrophils # 4.5 K/mcL (1.6-8.9); Nucleated Red Blood Cells 0.4 /100 WBC (0); Platelet Count 215 K/mcL (140-400); Red Blood Count 4.27 M/mcL (4.19-5.50); Red Cell Distribution Width 21.4 % (11.5-14.5); Segmented Neutrophils % 88.6 %
--- NOTE | 2017-05-09 07:04 | Nephrology Progress Note ---
Date of Encounter: 05/09/17 Time of Encounter: 07:03 - Assessment and Plan (1) CKD (chronic kidney disease) stage 4, GFR 15-29 ml/min Current Visit: Yes Status: Chronic SrCr slightly increased today CKD stage 4 at baseline Continue strict I&O and daily weights. Monitor BMP. Avoid nephrotoxins Decrease Lasix from 40MG IV BID to 40MG IV daily dosing Continue to monitor (2) S/P kidney transplant Current Visit: No Status: Chronic Chronic renal failure, S/P renal transplant in 2012 Avoid nephrotoxins Continue immunosuppressant medications at this time (3) Acute on chronic diastolic CHF (congestive heart failure) Current Visit: Yes Status: Acute Echo 05/08/17 revealed LVEF 45%, LVH, bioprosthetic aortic valve with trace aortic regurgitation Cardiology following (4) Anemia Current Visit: No Status: Chronic Anemia of chronic disease vs. iron deficiency anemia Recent labs on 05/01/17 reveal Iron 22, % iron sat 6%, transferrin 243, ferritin 285, Vit B12 level 503, Folate 17.2 Patient is on Ferahema as an outpatient Continue to monitor Qualifiers: Anemia type: due to chronic kidney disease Chronic kidney disease stage: stage 4 (severe) Qualified Code(s): N18.4 - Chronic kidney disease, stage 4 ( severe); D63.1 - Anemia in chronic kidney disease; D63.1 - Anemia in chronic kidney disease (5) History of aortic valve replacement with bioprosthetic valve Current Visit: Yes Status: Acute Management per primary team (6) Atrial fibrillation Current Visit: Yes Status: Acute Findings on telemetry consistent with atrial fibrillation for which he has multiple risk factors. CHADSvasc score 5 Patient reluctant to take anticoagulation, but recommend Eliquis to reduce risk of CVA. Management per cardiology and primary team Qualifiers: Atrial fibrillation type: unspecified Qualified Code(s): I48.91 - Unspecified atrial fibrillation (7) HTN (hypertension) Current Visit: Yes Status: Chronic Continue home meds Qualifiers: Hypertension type: essential hypertension Qualified Code(s): I10 - Essential (primary) hypertension (8) DM (diabetes mellitus) Current Visit: Yes Status: Chronic Management per primary team Qualifiers: Diabetes mellitus type: type 2 Diabetes mellitus complication status: with hyperglycemia Diabetes mellitus oil heaterman insulin use: with prison use Qualified Code(s): E11.65 - Type 2 diabetes mellitus with hyperglycemia; Z79.4 - MCFP (current) use of insulin; Z79.4 - intermodal dispatcher (current) use of insulin ; Z79.4 - MCFP (current) use of insulin; Z79.4 - MCFP (current) use of insulin (9) Hypophosphatemia Current Visit: Yes Status: Acute Supplement phos Continue to monitor (10) Drug-induced leukopenia Current Visit: Yes Status: Acute Improved Leukopenia likely due to immunosuppressant medications in the setting of kidney transplant Continue to monitor Subjective Principal diagnosis: CHF Interval history: Patient seen and examined resting comfortably in bed. Patient reports improved SOB today but is not back to his baseline. He had 2300cc UOP yesterday and reports hypoxia while waking to the bathroom. Objective - Vital Signs Vital signs: Vital Signs Temp Pulse Resp BP Pulse Ox 05/09/17 04:48 99.0 F 65 20 162/72 95 05/09/17 03:06 20 98 05/08/17 23:54 20 93 05/08/17 20:26 98.9 F 82 19 130/55 92 05/08/17 19:38 17 93 05/08/17 15:31 97.7 F 81 16 127/59 91 05/08/17 11:52 97 F L 77 16 135/55 90 05/08/17 11:09 16 90 05/08/17 07:54 16 95 05/08/17 07:05 97.6 F 77 16 127/61 94 Intake and Output 05/08/17 05/08/17 05/09/17 15:59 23:59 07:59 Intake Total 240 / 240 Output Total 900 / 900 1400 / 1400 200 / 200 Balance -660 / -660 -1400 / -1400 -200 / -200 Intake: Oral 240 / 240 Output: Urine 900 / 900 1400 / 1400 200 / 200 Other: Meal Breakfast Percent of Meal Consumed 100% Blood Glucose* 306 217 - General Appearance General appearance: Present: well-developed, well-nourished, appears started age EENT: Present: ATNC, mucous membranes moist Respiratory: Present: course breath sounds (demininshed breath sounds LLL) Cardiology: Present: no murmurs, no rub, no gallops, edema (1+ pedal edema) Gastrointestinal: Present: normoactive bowel sounds, no tenderness, no guarding Integumentary: Present: no rash, warm and dry Neurologic: Present: no focal deficit, alert and oriented x3 Musculoskeletal: Present: no deformities, no erythema, no cyanosis Psychiatric: Present: mood/affect appropriate, cooperative - Lab 05/09/17 06:46 05/09/17 06:07 Most recent lab results Calcium 9.2 mg/dL (8.6-10.3) 05/08/17 04:09 Phosphorus 2.1 mg/dL (2.7-4.5) L 05/08/17 11:54 Consult Discharge Plan - Plan Instructions: Heart Failure (DC), Diabetes Mellitus Type 2 in Adults (DC), Chronic Obstructive Pulmonary Disease (DC), Chronic Hypertension (DC), Anemia ( GEN) Referrals: Satya Singh MD [Primary Care Provider] -
[2017-05-09 07:08] LABS: Albumin 3.4 g/dL (3.5-5.7); Albumin/Globulin Ratio 1.3 (1.1-2.2); Bilirubin,Total 0.5 mg/dL (0.3-1.0); Calcium 8.9 mg/dL (8.6-10.3); Globulin 2.6 g/dL (2.4-3.5); Potassium 4.9 mEq/L (3.5-5.1)
[2017-05-09] MEDS: Budesonide/Formoterol 160/4.5 MDI IH SCH (07:58)
[2017-05-09 08:08] LABS: Hypochromasia Present (Not Present)
[2017-05-09 08:09] LABS: Large Platelets Present (Not Present); Platelet Estimate Normal (Normal)
[2017-05-09] MEDS: Furosemide 40 MG/4 ML VIAL IVP SCH (08:25)
[2017-05-09] MEDS: Multivit/Ca/Min/Fe/FA 1 TAB TABLET PO SCH (08:26)
[2017-05-09] MEDS: Sulfamethoxazole/Trimeth DS 1 EACH TABLET PO SCH (08:26)
[2017-05-09] MEDS: amLODIPine 5 MG TABLET PO SCH ×2 (08:26→22:39)
[2017-05-09] MEDS: Isosorbide MONOnitrate (24 HR) 60 MG TAB.ER.24H PO SCH (08:26)
[2017-05-09] MEDS: CycloSPORINE, Mod (Neoral) 25 MG CAPSULE PO SCH ×2 (08:26→16:08)
[2017-05-09] MEDS: Folic Acid 1 MG TABLET PO SCH (08:26)
[2017-05-09] MEDS: Insulin LISPRO 300 UNITS/3 ML VIAL SQ SCH ×4 (08:30→22:38)
[2017-05-09] MEDS: Atropine Sulfate 1% 40 DROP/2 ML BOTTLE LEFT EYE SCH ×2 (08:32→22:38)
[2017-05-09] MEDS: Aspirin 81 MG TAB.CHEW PO SCH (08:39)
[2017-05-09] MEDS: Lactobacillus 1 EACH CAP.SPRINK PO SCH (08:39)
[2017-05-09] MEDS: FLUoxetine HCl 10 MG CAPSULE PO SCH (08:40)
[2017-05-09] MEDS: Cholecalciferol (D-3) 1,000 UNIT TABLET PO SCH (08:40)
[2017-05-09] MEDS: Insulin DETEMIR 100 UNIT/ML X5UNITS SQ SCH ×2 (08:42→22:39)
[2017-05-09] MEDS: (Everolimus [Zortress] 0.5 MG) PO SCH ×2 (08:42→22:41)
--- NOTE | 2017-05-09 10:11 | Cardiology Progress Note ---
Date of Encounter: 05/09/17 Time of Encounter: 08:00 Assessment and Plan (1) CHF (congestive heart failure) Current Visit: No Status: Acute Acute on chronic diastolic CHF. Reports eating high sodium diet. He eats TV dinners and canned soup. Declined evidence specialist consult, says it will not change anything. CXR shows bilateral pleural effusions with L greater than R and pulmonary edema consistent with CHF. Repeat CXR showed decreased L pleural effusion and decreased pulmonary edema. H/o chronic left sided pleural effusion since CABG in 2011. S/p thoracentesis with 900 cc removed yesterday. Agree with IV lasix until euvolemic. Nephrology was consulted due to history of kidney transplant. Kidney function is stable. Improving. CHF education reviewed. TTE 09/2016 showed 50%. Mild to moderate concentric left ventricular hypertrophy. Moderate left ventricular diastolic dysfunction with elevated filling pressures Atypical septal motion consistent with post-operative status. Normal RV size with low normal function. Mild mitral regurgitation. S/p bioprosthetic aortic valve replacement. Aortic valve is not well visualized. There may be trivial paravalvular regurgitation (PSAX view). Mild pulmonic regurgitation. Trivial pericardial effusion. Continue strict I&O and daily weights. Monitor BMP. CHF education reviewed. Low sodium diet stressed. Continue IV lasix for 24 more hours and convert to oral lasix 40 mg BID at home. TTE pending. If no significant change from previous no further cardiac testing will be recommended. Out-patient cardiology f/u will be coordinated. Qualifiers: Congestive heart failure type: unspecified congestive heart failure type Congestive heart failure chronicity: chronic Qualified Code(s): I50.9 - Heart failure, unspecified (2) CAD (coronary artery disease) of artery bypass graft Current Visit: Yes Status: Chronic H/o of 4v CABG and bioprosthetic AVR in 2011. He admits to chest heaviness associated with his SOB prior to admission. Now pain free. Troponin negative. EKG shows SR with LBBB. Known LBBB. Check TTE. Continue asa, statin, and bb. Qualifiers: [place] vs. transplanted heart: [place] heart Associated angina: without angina Qualified Code(s): I25.810 - Atherosclerosis of coronary artery bypass graft(s) without angina pectoris Discussion w patient/family: The assessment and plan as outlined above was discussed with the patient and/or family members who expressed understanding and agreement. All questions were answered. Thank you for involving us in the care of your patient. Please call with any questions. Subjective Principal diagnosis: DCHF Interval history: Mr. Raymond reports he is breathing better. He denies chest pain. No new complaints. Objective Vital Signs, Last 4 Hours Temp Pulse Resp BP Pulse Ox 05/09/17 07:58 20 95 05/09/17 07:04 97.7 F 74 14 153/64 96 General: Conversant, No Apparent Distress HEENT: Atraumatic, Normocephaly, Mucus Membranes Moist Neck: No JVD, Normal carotid pulses Cardiac: Reg Rate and Rhythm, Normal S1 and S2, No Murmur Lungs: Other (Respirations labored with talking. Expiratory wheezes scattered throughout. ) Neuro: Alert and responsive, No focal deficits noted Abdomen: Soft, Non-Tender Skin: No rashes noted on visualized skin Musculoskeletal: No Chest Wall Tenderness Extremities: No Clubbing, No Cyanosis, Normal Pulses, Other (Trace ankle edema noted.) Results 05/09/17 06:46 05/09/17 06:07 Lab Results 05/09/17 05/09/17 05/09/17 06:07 06:46 06:46 WBC 5.1 D Hgb 9.8 L Hct 33.9 L Plt Count 215 Sodium 133 L Potassium 4.9 Chloride 104 Carbon Dioxide 22 L BUN 69 H Creatinine 2.82 H Glucose 314 H Calcium 8.9 Magnesium 2.1 Total Bilirubin 0.5 AST 16 ALT 8 Alkaline Phosphatase 137 H B-Natriuretic Peptide 05/09/17 06:46 WBC Hgb Hct Plt Count Sodium Potassium Chloride Carbon Dioxide BUN Creatinine Glucose Calcium Magnesium Total Bilirubin AST ALT Alkaline Phosphatase B-Natriuretic Peptide 605 H Thoracentesis Ultrasound 05/08/17 00:00 IMPRESSION: 1. Successful ultrasound guided left thoracentesis. D/ / Carlin Green MD / Carlin Green MD Interpreting Provider: Carlin Green MD Chest X-Ray 05/08/17 09:27 IMPRESSION: 1. Decrease in the left pleural effusion. No pneumothorax. 2. Mild improvement in the pulmonary edema. D/ / Wilder Bay MD / Wilder Bay MD Interpreting Provider: Wilder Bay MD - Imaging and Cardiology Echo: pending - EKG Interpretation EKG results cardiology: personally reviewed Consult Discharge Plan - Plan Referrals: Satya Singh MD [Primary Care Provider] -
--- NOTE | 2017-05-09 11:25 | Internal Med Progress Note ---
<Gato Whaley - Last Filed: 05/09/17 14:33> Date of Encounter: 05/09/17 Time of Encounter: 11:24 - Assessment and plan (1) Acute on chronic diastolic CHF (congestive heart failure) Current Visit: Yes Status: Acute Assessment and plan: Patient admitted with increasing shortness of breath, cough, elevated BNP greater than 700, chest x-ray demonstrating bilateral pleural effusions with left greater than right. History of left sided pleural effusions with a history of CABG in 2011. TTE 09/2016 showed 50%. Mild to moderate concentric left ventricular hypertrophy. Moderate left ventricular diastolic dysfunction with elevated filling pressures Atypical septal motion consistent with post-operative status. Normal RV size with low normal function. Mild mitral regurgitation. S/p bioprosthetic aortic valve replacement. Aortic valve is not well visualized. There may be trivial paravalvular regurgitation (PSAX view). Mild pulmonic regurgitation. Trivial pericardial effusion. - History of bioprosthetic AVR - Status post renal transplant, chronic kidney disease likely contributing to volume overload. Urinary output 3.2 L, negative fluid balance 1.7 L - Patient has had improvement in respiratory status and decreased oxygen demand since starting IV Lasix and thoracentesis this morning with 900 mL out. - Clinically has mild increased vascular overload, most likely improved since admission. Oxygen saturations 90-92% on room air. 05/09: Respiratory status improved, volume status improved. Patient tolerating room air, able to lay flat without discomfort. Plan: - Appreciate cardiology's input - Continue IV Lasix 40 mg once per day. - Continue 2 g sodium restriction, 2 L fluid restriction - Daily weights, strict intake output monitoring - Maximize cardiac medications: Continue aspirin, Coreg, Lasix. Avoid lisinopril the setting of history of renal transplant and stable chronic kidney disease. (2) COPD (chronic obstructive pulmonary disease) Current Visit: Yes Status: Acute Assessment and plan: COPD history, stable. Qualifiers: Emphysema type: unspecified Qualified Code(s): J43.9 - Emphysema, unspecified (3) History of aortic valve replacement with bioprosthetic valve Current Visit: Yes Status: Acute Assessment and plan: Continue current anticoagulation. Stable. (4) S/P kidney transplant Current Visit: No Status: Chronic Assessment and plan: Documented history. Continue current immunosuppressive medications. Creatinine slightly elevated and GFR slightly down in the setting of IV diuresis. Likely setting to diminished afterload, we will reduce IV diuresis to once a day. - Nephrology following appreciate recommendations, discussed plan with nephrology. (5) DM type 2 (diabetes mellitus, type 2) Current Visit: Yes Status: Acute Assessment and plan: Uncontrolled type 2 diabetes, glucose greater than 400. 05/09: Glucose better controlled today in the 200s after changes yesterday. Patient states that he becomes very hypoglycemic below 140 as he usually runs higher. We will continue to monitor at current insulin coverage and adjust as necessary. Plan: - Subcutaneous Levemir 20 units twice a day - Low-dose sliding-scale insulin - Before meals at bedtime glucose checks. Qualifiers: Diabetes mellitus complication status: with circulatory complication Qualified Code(s): E11.51 - Type 2 diabetes mellitus with diabetic peripheral angiopathy without gangrene; Z79.4 - assisted (current) use of insulin; Z79.4 - terminal operations supervisor (current) use of insulin; Z79.4 - terminal operations supervisor (current) use of insulin ; Z79.4 - terminal operations supervisor (current) use of insulin (6) DVT prophylaxis Current Visit: Yes Status: Acute Assessment and plan: SQ Heparin - Subjective Interval history: Mr. Raymond 71yo Male seen and evaluated patient bedside this morning. He is alert and awake interactive no acute distress. He feels that his breathing is much improved compared to admission. He has been off requiring nasal cannula oxygen for over 24 hours, continuing 1 L nasal cannula oxygen for placebo effect according to patient. No other acute discomforts or pains. Understands that we are monitoring his renal function monitoring his glucose is no further questions. - Constitutional Vitals: Temp Pulse Resp BP Pulse Ox 97.7 F 84 14 145/66 96 05/09/17 11:12 05/09/17 11:12 05/09/17 11:12 05/09/17 11:12 05/09/17 11:12 General appearance: Present: cooperative, A&O X 3, no acute distress, answers questions appropriately Exam: General: Patient alert, awake, oriented 3, interactive, in no acute distress HEENT: Normocephalic, atraumatic, pupils equal reactive to light, nasal cavity patent and open septum median position, oral mucosa moist, uvula midline, neck supple trachea midline no palpable lymphadenopathy, no thyromegaly. Chest: Symmetric bilateral correlating with respiratory effort, effort nonlabored. Cardiac: Irregularly irregular heart rate and rhythm, grade 2/6 systolic ejection murmur. Radial pulses 2+ bilateral, posterior tibial and dorsal pedal pulses 2+ bilateral. Respiratory: Diminished in left lower lung base, clear to auscultation all lung thakkar. Abdomen: Soft, nontender, positive bowel sounds, no palpable masses appreciated on examination Extremities: Symmetric bilateral, bilateral lower extremities without erythema or edema patient moving all 4 extremities spontaneously. Neurologic: No focal deficits appreciated on examination. Face symmetric, muscle strength symmetric bilateral upper and lower extremities. Internal Medicine: Result - Labs CBC & Chem 7: 05/09/17 06:46 05/09/17 06:07 Labs: Short CBC 05/09/17 Range/Units 06:46 WBC 5.1 D (4.3-11.1) K/mcL Hgb 9.8 L (12.9-16.9) g/dL Hct 33.9 L (37.5-50.1) % Plt Count 215 (140-400) K/mcL Neutrophils # 4.5 (1.6-8.9) K/mcL BMP 05/09/17 06:07 Sodium 133 L Potassium 4.9 Chloride 104 Carbon Dioxide 22 L BUN 69 H Creatinine 2.82 H Glucose 314 H Calcium 8.9 Liver Function 05/09/17 Range/Units 06:07 Total Bilirubin 0.5 (0.3-1.0) mg/dL AST 16 (13-39) Units/L ALT 8 (7-52) Units/L Alkaline Phosphatase 137 H (34-104) Units/L Albumin 3.4 L (3.5-5.7) g/dL - Impressions Impressions Thoracentesis Ultrasound 05/08/17 00:00 IMPRESSION: 1. Successful ultrasound guided left thoracentesis. D/ / Carlin Green MD / Carlin Green MD Interpreting Provider: Carlin Green MD Consult Discharge Plan - Plan Instructions: Heart Failure (DC), Diabetes Mellitus Type 2 in Adults (DC), Chronic Obstructive Pulmonary Disease (DC), Chronic Hypertension (DC), Anemia ( GEN) Referrals: Satya Singh MD [Primary Care Provider] - <Jose L Hernandez A - Last Filed: 05/09/17 16:38> Date of Encounter: 05/09/17 - Assessment and plan (1) Acute on chronic diastolic CHF (congestive heart failure) Current Visit: Yes Status: Acute (2) CKD (chronic kidney disease) stage 4, GFR 15-29 ml/min Current Visit: Yes Status: Chronic (3) COPD (chronic obstructive pulmonary disease) Current Visit: Yes Status: Acute Qualifiers: Emphysema type: unspecified Qualified Code(s): J43.9 - Emphysema, unspecified (4) DM (diabetes mellitus) Current Visit: Yes Status: Chronic Qualifiers: Diabetes mellitus type: type 2 Diabetes mellitus complication status: with hyperglycemia Diabetes mellitus care home insulin use: with care home use Qualified Code(s): E11.65 - Type 2 diabetes mellitus with hyperglycemia; Z79.4 - terminal operations supervisor (current) use of insulin; Z79.4 - assisted (current) use of insulin ; Z79.4 - terminal operations supervisor (current) use of insulin; Z79.4 - assisted (current) use of insulin (5) HTN (hypertension) Current Visit: Yes Status: Chronic Qualifiers: Hypertension type: essential hypertension Qualified Code(s): I10 - Essential (primary) hypertension (6) S/P kidney transplant Current Visit: No Status: Chronic (7) Anemia Current Visit: No Status: Chronic Qualifiers: Anemia type: due to chronic kidney disease Chronic kidney disease stage: stage 4 (severe) Qualified Code(s): N18.4 - Chronic kidney disease, stage 4 ( severe); D63.1 - Anemia in chronic kidney disease; D63.1 - Anemia in chronic kidney disease - Constitutional Vitals: Temp Pulse Resp BP Pulse Ox 97.7 F 76 18 162/78 84 05/09/17 15:21 05/09/17 15:21 05/09/17 15:52 05/09/17 15:21 05/09/17 15:52 Internal Medicine: Result - Labs CBC & Chem 7: 05/09/17 06:46 05/09/17 06:07 Labs: Short CBC 05/09/17 Range/Units 06:46 WBC 5.1 D (4.3-11.1) K/mcL Hgb 9.8 L (12.9-16.9) g/dL Hct 33.9 L (37.5-50.1) % Plt Count 215 (140-400) K/mcL Neutrophils # 4.5 (1.6-8.9) K/mcL BMP 05/09/17 06:07 Sodium 133 L Potassium 4.9 Chloride 104 Carbon Dioxide 22 L BUN 69 H Creatinine 2.82 H Glucose 314 H Calcium 8.9 Liver Function 05/09/17 Range/Units 06:07 Total Bilirubin 0.5 (0.3-1.0) mg/dL AST 16 (13-39) Units/L ALT 8 (7-52) Units/L Alkaline Phosphatase 137 H (34-104) Units/L Albumin 3.4 L (3.5-5.7) g/dL - Impressions Impressions Echocardiogram 05/08/17 14:14 Impressions: LVEF 45%. Mild segmental systolic dysfunction. Mild concentric left ventricular hypertrophy. Atypical septal motion consistent with post-operative status. Moderate left ventricular diastolic dysfunction. Normal right ventricular structure and function. Severely dilated left atrium. Bioprosthetic aortic valve appears well seated in the LVOT. Leaflets not well visualized. No significant prosthetic aortic stenosis. Mean gradient 15 mmHg. Trace aortic regurgitation. Severe mitral annular calcification. No significant mitral stenosis. Mean gradient 4 mmHg (HR 80 bpm). Mild pulmonic regurgitation. No evidence of pulmonary hypertension. Left Ventricular Wall Motion: Rest Echo Findings The basal inferior and basal inferior septal franco were hypokinetic. All other wall segments showed normal motion. Findings: Study Quality * Technically sub-optimal due to poor echocardiographic windows. ECG Findings * Sinus rhythm with BBB. Left Ventricle * LVEF 45%. Mild segmental systolic dysfunction. * Normal LV chamber size. * Mild concentric left ventricular hypertrophy. * Atypical septal motion consistent with post-operative status. * Moderate left ventricular diastolic dysfunction. Right Ventricle * Normal right ventricular structure and function. Left Atrium * Severely dilated left atrium. Right Atrium * Mildly dilated right atrium. Interatrial Septum * Interatrial septum not well evaluated. Aortic Valve * Bioprosthetic aortic valve appears well seated. Leaflets not well visualized. * No significant prosthetic aortic stenosis. Mean gradient 15 mmHg. * Trace aortic regurgitation. Mitral Valve * Severe mitral annular calcification. * Mildly thickened mitral valve leaflets. * No mitral regurgitation. * No significant mitral stenosis. Mean gradient 4 mmHg (HR 80 bpm). Tricuspid Valve * Normal tricuspid valve structure and function. * Trace tricuspid regurgitation. * No evidence of pulmonary hypertension. Pulmonic Valve * Normal pulmonic valve structure. * Mild pulmonic regurgitation. Aorta * Normally sized aortic root. Pericardium * The pericardium appears normal. IVC * Normal IVC dimensions and inspiratory collapse. Pulmonary Artery * Normal visualized portions of the main pulmonary artery. - Attending Attestation I examined this patient and my medical decision-making was reviewed with the Resident Physician on 05/09/17. I agree with the documented findings, disposition and treatment plan as described except to the extent set forth below. Mr Raymond is currently admitted for acute exac CHF. He has had slight increase in his creatinine today. He remains moderate to high risk due to potential for worsening clinical status. Mr Raymond is feeling OK at this time. No CP. No worsening of dyspnea. Remains edematous. Appetite and bowels OK Exam Alert. Comfortable Mucus membranes dry Heart reg Decreased breath sounds but no wheeze Abd soft I/P 1. CHF exacerbation 2. Pleural effusion Further diagnoses and plan as above Monitor tonight and recheck renal function again tomorrow.
--- NOTE | 2017-05-09 14:08 | Event Note ---
Date of Encounter: 05/09/17 Time of Encounter: 14:03 - Cardiology Event Note EKG completed and shows SR with 1st degree block. TTE reviewed and shows EF 45% with mild inferior basal hypokenesis. Aortic valve is well seated. There is severe MAc with no significant mitral stenosis. EF previously 50%. and WMA are new. Noted that troponin is negative and EKG without acute change. I discussed LHC R/B/A verses medical management for cardiomyopathy. 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 Patient reports having intermittent blood transfusions. Continue carvedilol. No aceI due to kidney disease. Continue lasix at discharge. CHF education reviewed. Out- pt f/u with Dr. Pope will be made in 1-2 weeks. Cardiology will sign off. Call with questions.
--- NOTE | 2017-05-09 20:35 | Electrocardiograph Report ---
[address] [address] Test Date: 2017-05-09 Pat Name: Hayder Raymond Department: 111 Room: 2NE22 Gender: M Brim Cutter: : 1945 Requested By: Rhett Asencio Order Number: [id number] Reading MD: Ladarius Navarro MD Measurements Intervals [place] Rate: 81 P: MS: 0 QRS: 28 QRSD: 220 T: 169 QT: 418 QTc: 456 Interpretive Statements SINUS RHYTHM WITH 1ST AV BLOCK LEFT BUNDLE BRANCH BLOCK Electronically Signed On 05-09-2017 20:34:05 EST by Ladarius Navarro MD
[2017-05-10] MEDS: Budesonide/Formoterol 160/4.5 MDI IH SCH ×2 (00:03→07:55)
[2017-05-10 04:49] LABS: Hemoglobin 10.1 g/dL (12.9-16.9); Lymphocytes % 9.1 %
[2017-05-10 04:51] LABS: Eosinophils % 0.2 %; Immature Granulocytes % 0.2 % (0-4); Lymphocytes # 0.4 K/mcL (0.6-4.6); Mean Corpuscular HGB Conc 28.1 g/dL (31.6-35.5); Mean Corpuscular Hemoglobin 22.3 pg (28.0-33.3); Mean Corpuscular Volume 79.6 fL (83.0-100.0); Mean Platelet Volume 10.6 fL (9.4-12.4); Monocytes # 0.6 K/mcL (0.0-1.3); Monocytes % 13.9 %; Neutrophils # 3.5 K/mcL (1.6-8.9); Platelet Count 220 K/mcL (140-400); Red Blood Count 4.52 M/mcL (4.19-5.50); Red Cell Distribution Width 21.6 % (11.5-14.5); Segmented Neutrophils % 76.6 %
[2017-05-10] MEDS: *HR* Heparin 5,000 UNIT/ML VIAL SQ SCH (05:31)
[2017-05-10 05:40] LABS: Potassium 4.5 mEq/L (3.5-5.1)
[2017-05-10 05:41] LABS: Albumin 3.4 g/dL (3.5-5.7); Albumin/Globulin Ratio 1.3 (1.1-2.2); Bilirubin,Total 0.5 mg/dL (0.3-1.0); Globulin 2.7 g/dL (2.4-3.5); Total Protein 6.1 g/dL (6.4-8.9)
[2017-05-10 05:45] LABS: Anisocytosis 2+ (Not Present); Platelet Estimate Normal (Normal)
[2017-05-10 05:46] LABS: Burr Cells 1+ (Not Present)
--- NOTE | 2017-05-10 06:00 | Nephrology Progress Note ---
Date of Encounter: 05/10/17 Time of Encounter: 05:59 - Assessment and Plan (1) CKD (chronic kidney disease) stage 4, GFR 15-29 ml/min Current Visit: Yes Status: Chronic SrCr slightly increased today CKD stage 4 at baseline Monitor BMP within 1 week Avoid nephrotoxins Resume home Lasix 40MG PO BID Patient needs nephrology follow up within 1-2 weeks (2) S/P kidney transplant Current Visit: No Status: Chronic Chronic renal failure, S/P renal transplant in 2012 Patient reports RLQ pain Recommend abdominal U/S, but patient would like to wait for outpatient renal U/ S (please schedule on a Saturday in [place]) as patient is eager to go home. Avoid nephrotoxins Continue immunosuppressant medications at this time (3) Acute on chronic diastolic CHF (congestive heart failure) Current Visit: Yes Status: Acute Echo 05/08/17 revealed LVEF 45%, LVH, bioprosthetic aortic valve with trace aortic regurgitation Pleural fluid analysis performed Cardiology and primary team following (4) Anemia Current Visit: No Status: Chronic Anemia of chronic kidney disease and iron deficiency anemia Recent labs on 05/01/17 reveal Iron 22, % iron sat 6%, transferrin 243, ferritin 285, Vit B12 level 503, Folate 17.2 Patient is on Ferahema as an outpatient Continue to monitor Qualifiers: Anemia type: due to chronic kidney disease Chronic kidney disease stage: stage 4 (severe) Qualified Code(s): N18.4 - Chronic kidney disease, stage 4 ( severe); D63.1 - Anemia in chronic kidney disease; D63.1 - Anemia in chronic kidney disease (5) History of aortic valve replacement with bioprosthetic valve Current Visit: Yes Status: Acute Management per primary team (6) HTN (hypertension) Current Visit: Yes Status: Chronic Continue home meds Qualifiers: Hypertension type: essential hypertension Qualified Code(s): I10 - Essential (primary) hypertension (7) DM (diabetes mellitus) Current Visit: Yes Status: Chronic Management per primary team Qualifiers: Diabetes mellitus type: type 2 Diabetes mellitus complication status: with hyperglycemia Diabetes mellitus superintendent marine oil terminal insulin use: with care home use Qualified Code(s): E11.65 - Type 2 diabetes mellitus with hyperglycemia; Z79.4 - keno terminal operator (current) use of insulin; Z79.4 - senior care (current) use of insulin ; Z79.4 - senior care (current) use of insulin; Z79.4 - keno terminal operator (current) use of insulin (8) Hypophosphatemia Current Visit: Yes Status: Acute Resolved Supplemented phos Continue to monitor (9) Drug-induced leukopenia Current Visit: Yes Status: Acute Improved Leukopenia likely due to immunosuppressant medications in the setting of kidney transplant Patient has follow up scheduled Subjective Principal diagnosis: CHF Interval history: Patient seen and examined resting comfortably in bed. Patient reports much improved SOB today and is back to his baseline. He had 2100cc UOP yesterday and reports hypoxia while waking to the bathroom. Patient reports RLQ pain but would like to wait for outpatient renal U/S. Patient is eager to go home. Objective - Vital Signs Vital signs: Vital Signs Temp Pulse Resp BP Pulse Ox 05/10/17 05:54 98.2 F 70 18 151/73 94 05/10/17 00:00 98 F 64 18 161/75 93 05/09/17 20:06 18 94 05/09/17 19:00 98 F 85 18 130/67 94 05/09/17 15:52 18 84 05/09/17 15:21 97.7 F 76 14 162/78 94 05/09/17 11:17 20 96 05/09/17 11:12 97.7 F 84 14 145/66 96 05/09/17 07:58 20 95 05/09/17 07:04 97.7 F 74 14 153/64 96 Intake and Output 05/09/17 05/09/17 05/10/17 15:59 23:59 07:59 Intake Total 480 / 480 240 / 240 120 / 120 Output Total 1900 / 1900 Balance -1420 / -1420 240 / 240 120 / 120 Intake: Oral 480 / 480 240 / 240 120 / 120 Output: Urine 1900 / 1900 Other: Meal Lunch Dinner Percent of Meal Consumed 100% 100% # Voids 1 Weight 92.3 kg Blood Glucose* 112 192 Patient Weight 05/10/17 23:59 Weight 92.3 kg - General Appearance General appearance: Present: well-developed, well-nourished EENT: Present: ATNC, mucous membranes moist Neck: Present: no thyromegaly, supple Respiratory: Present: no kyphosis, clear (better air movement RLL > LLL) Cardiology: Present: mid-systolic murmur, no edema, regular rate, irregular rhythm Gastrointestinal: Present: normoactive bowel sounds, tenderness (RLQ), guarding (voluntary) Neurologic: Present: no focal deficit, alert and oriented x3 Musculoskeletal: Present: no deformities, no erythema, no cyanosis Psychiatric: Present: mood/affect appropriate, cooperative - Lab 05/10/17 04:10 05/10/17 04:10 Most recent lab results Calcium 9.0 mg/dL (8.6-10.3) 05/10/17 04:10 Phosphorus 3.4 mg/dL (2.7-4.5) 05/10/17 04:10 Magnesium 2.1 mg/dL (1.6-2.6) 05/09/17 06:46 Consult Discharge Plan - Plan Instructions: Heart Failure (DC), Diabetes Mellitus Type 2 in Adults (DC), Chronic Obstructive Pulmonary Disease (DC), Chronic Hypertension (DC), Anemia ( GEN) Additional Instructions: 1. Follow-up with your primary care provider in the next 3-5 days 2. Take all prescriptions as prescribed, any concerns or questions contact her primary care provider. 3. Follow-up with nephrology as scheduled. Referrals: Satya Singh MD [Primary Care Provider] - 05/31/17 10:30 am
[2017-05-10 06:53] VITALS: BP 158/71
--- NOTE | 2017-05-10 08:42 | Discharge Summary ---
<Gato Whaley - Last Filed: 05/10/17 10:53> Date of Encounter: 05/10/17 Time of Encounter: 08:40 - Discharge Diagnosis (1) Acute on chronic diastolic CHF (congestive heart failure) Priority: Primary Status: Acute (2) COPD (chronic obstructive pulmonary disease) Priority: Secondary Status: Acute Qualifiers: Emphysema type: unspecified Qualified Code(s): J43.9 - Emphysema, unspecified (3) History of aortic valve replacement with bioprosthetic valve Priority: Secondary Status: Acute (4) S/P kidney transplant Priority: Primary Status: Chronic (5) DM type 2 (diabetes mellitus, type 2) Priority: Secondary Status: Acute Qualifiers: Diabetes mellitus complication status: with circulatory complication Qualified Code(s): E11.51 - Type 2 diabetes mellitus with diabetic peripheral angiopathy without gangrene; Z79.4 - long-term (current) use of insulin; Z79.4 - long-term (current) use of insulin; Z79.4 - terminal operations supervisor (current) use of insulin ; Z79.4 - terminal operations supervisor (current) use of insulin - Discharge Medications Home Medications: Acetaminophen [Tylenol] 325 mg PO Q4HR PRN 12/14/14 [History] Aspirin 81 mg PO DAILY 12/14/14 [History] CycloSPORINE, Mod (Neoral) [Neoral] 50 mg PO QAM 12/14/14 [History] Furosemide [Lasix] 40 mg PO BID 12/14/14 [History] Saccharomyces Boulardii [Probiotic] 250 mg PO DAILY 12/14/14 [History] Sulfamethoxazole/Trimeth DS [Bactrim Ds] 1 each PO DAILY 12/14/14 [History] Tamsulosin [Flomax] 0.4 mg PO DAILY 12/14/14 [History] Folic Acid 1 mg PO DAILY #30 tablet 12/29/14 [Rx] Carvedilol [Coreg] 25 mg PO BID 11/11/15 [History] CycloSPORINE, Mod (Neoral) [Neoral] 25 mg PO QPM 11/11/15 [History] Everolimus [Zortress] 0.5 mg PO BID 11/11/15 [History] FLUoxetine HCl [Prozac] 10 mg PO DAILY 11/11/15 [History] amLODIPine [Norvasc] 2.5 mg PO BID 11/11/15 [History] Atropine 1% Opth Drops 1 drop LEFT EYE BID 05/29/16 [History] Calcitriol [Rocaltrol] 0.25 mcg PO DAILY 05/29/16 [History] Insulin ASPART [Novolog Flexpen] 100 unit SQ QID PRN 05/29/16 [History] Insulin Glargine [Lantus] 15 - 20 unit SQ DAILY 05/29/16 [History] Lactobacillus Combination No.8 [Adult Probiotic] 1 tab PO DAILY 05/29/16 [ History] Budesonide/Formoterol 160/4.5 [Symbicort 160/4.5] 2 puff IH BIDR 11/19/16 [ History] Cholecalciferol (Vitamin D3) [Vitamin D3] 400 unit PO DAILY 11/19/16 [History] Glimepiride [Amaryl] 2 mg PO DAILY 11/19/16 [History] Albuterol Sulfate [Albuterol Inhaler] 2 puff IH Q4HR PRN #1 hfa.aer.ad 01/08/17 [Rx] Albuterol Sulfate [Proair Respiclick] 90 mcg IH Q4H 05/07/17 [History] Dulaglutide [Trulicity] 0.75 mg SQ QWEEK 05/07/17 [History] Ferric Carboxymaltose [Injectafer (For Outpatient Infusion)] 750 mg IV QWEEK 09/16 [History] Mv-Mn/FA/Vit K1/Lycop/Lut/Zeax [Ocuvite Eye + Multi Tablet] 1 each PO DAILY 09/16 [History] Umeclidinium [place] [Incruse Ellipta] 62.5 mcg IH DAILY 05/07/17 [History] Allergies/Adverse Reactions: 3 Allergy/AdvReac Type Severity Reaction Status Date / Time levofloxacin [From Levaquin] Allergy Nausea Verified 02/27/17 10:20 Ptavrhu-Rti-Sqr Reductase Allergy Weakness Verified 11/03/14 10:21 Inhibitor [Statins] Procedures/tests Complete & Pending: Procedures Performed prior 72 hours Category Date Time Status IR thoracentesis ultrasound [IR] Routine IR 05/08/17 Completed EKG [ECG 12 lead ECG] [ECG] Stat Y 05/09/17 10:33 Completed EV echocardiogram Routine Y 05/08/17 14:14 Completed Date of admission: 05/07/17 13:22 Primary care physician: Satya Singh MD Consults: 05/07/17 14:58 Consult to Bowling Or Skating Front Desk Clerk [CONS] Routine Reason for SW Consult: WANTS TO DISCUSS NEW LIVING WILL AND POA 05/07/17 16:27 Consult to Cardiology [CONS] Routine Comment: Consulting Provider: Cardiology [facility] Reason for Consult: increasing SOB/ H/O CHF and moderate left pleural effusion Time Notified: 16:29 Call Completed: Yes Consult to Interventional Radiology [CONS] Routine Consulting Provider: Radiology Interventional Cols Reason for Consult: moderate left pleural effusion Time Notified: 16:29 Call Completed: Yes Consult to Nephrology [CONS] Routine Consulting Provider: Kidney [facility]/LEONIDAS/JANIS/NENA Reason for Consult: h/o renal transplant; medication management Time Notified: 16:30 Call Completed: Yes Discharging clinician: Gato Whaley Anticipated date of discharge: 05/10/17 - Patient Status Disposition: Home, Self-Care Condition: Good Functional capacity at discharge: independent ambulation Overall status at discharge: patient is progressing back to baseline - Discharge Instructions Instructions: Heart Failure (DC), Diabetes Mellitus Type 2 in Adults (DC), Chronic Obstructive Pulmonary Disease (DC), Chronic Hypertension (DC), Anemia ( GEN) Follow Up With: Satya Singh MD [Primary Care Provider] - 05/31/17 10:30 am Additional Instructions: 1. Follow-up with your primary care provider in the next 3-5 days 2. Take all prescriptions as prescribed, any concerns or questions contact her primary care provider. 3. Follow-up with nephrology as scheduled. - Diet and Activity Activity: increase activity as tolerated Diet: advance to your usual diet, diabetic diet, low fat, low cholesterol, low salt diet Interval History: Mr. Raymond is a 71 year old male with a PMH of COPD, CHF, CABG, renal artery disease, renal transplant, HLD, HTN, and PAD. He presented to [facility], [place] with a 3- day h/o increasing dyspnea. He was seen in the emergency department found to have a BNP of 2496, hyperglycemic admitted to the general medical floor. He was placed on child monitor, renal function was monitored throughout his inpatient stay. He was started on IV diuresis 40 mg twice a day. He demonstrated significant improvement in his volume status daily, strict intake and output monitoring was recorded. He was seen by nephrology for evaluation of his renal function during diuresis with his history of kidney transplant. He is seen and evaluated on 05/10/2017 deemed stable for discharge home on his home dose of Lasix with follow-up with nephrology in the outpatient setting. Hospital course: Mr. Raymond is a 71 year old male - Time Spent with Patient Total time spent providing and/or coordinating discharge services: - Constitutional Vitals: Temp Pulse Resp BP Pulse Ox 98.0 F 71 16 158/71 95 05/10/17 06:00 05/10/17 06:00 05/10/17 07:55 05/10/17 06:00 05/10/17 07:55 General appearance: Present: cooperative, A&O X 3, no acute distress, answers questions appropriately Exam: General: Patient alert, awake, oriented 3, interactive, in no acute distress HEENT: Normocephalic, atraumatic, pupils equal reactive to light, nasal cavity patent and open septum median position, oral mucosa moist, uvula midline, neck supple trachea midline no palpable lymphadenopathy, no thyromegaly. Chest: Symmetric bilateral correlating with respiratory effort, effort nonlabored. Cardiac: Irregularly irregular heart rate and rhythm, grade 2/6 systolic ejection murmur. Radial pulses 2+ bilateral, posterior tibial and dorsal pedal pulses 2+ bilateral. Respiratory: Diminished in left lower lung base, clear to auscultation all lung thakkar. Abdomen: Soft, nontender, positive bowel sounds, no palpable masses appreciated on examination Extremities: Symmetric bilateral, bilateral lower extremities without erythema or edema patient moving all 4 extremities spontaneously. Neurologic: No focal deficits appreciated on examination. Face symmetric, muscle strength symmetric bilateral upper and lower extremities. <Jose L Hernandez - Last Filed: 05/10/17 18:19> Date of Encounter: 05/10/17 - Discharge Diagnosis (1) Acute on chronic diastolic CHF (congestive heart failure) Status: Acute (2) CKD (chronic kidney disease) stage 4, GFR 15-29 ml/min Priority: Secondary Status: Chronic (3) COPD (chronic obstructive pulmonary disease) Status: Acute Qualifiers: Emphysema type: unspecified Qualified Code(s): J43.9 - Emphysema, unspecified (4) DM (diabetes mellitus) Priority: Secondary Status: Chronic Qualifiers: Diabetes mellitus type: type 2 Diabetes mellitus complication status: with hyperglycemia Diabetes mellitus jail insulin use: with intermediate project manager use Qualified Code(s): E11.65 - Type 2 diabetes mellitus with hyperglycemia; Z79.4 - terminal operations supervisor (current) use of insulin; Z79.4 - terminal operations supervisor (current) use of insulin ; Z79.4 - terminal operations supervisor (current) use of insulin; Z79.4 - terminal operations supervisor (current) use of insulin (5) HTN (hypertension) Priority: Secondary Status: Chronic Qualifiers: Hypertension type: essential hypertension Qualified Code(s): I10 - Essential (primary) hypertension (6) S/P kidney transplant Status: Chronic (7) Anemia Priority: Secondary Status: Chronic Qualifiers: Anemia type: due to chronic kidney disease Chronic kidney disease stage: stage 4 (severe) Qualified Code(s): N18.4 - Chronic kidney disease, stage 4 ( severe); D63.1 - Anemia in chronic kidney disease; D63.1 - Anemia in chronic kidney disease Procedures/tests Complete & Pending: Procedures Performed prior 72 hours Category Date Time Status IR thoracentesis ultrasound [IR] Routine IR 05/08/17 Completed EKG [ECG 12 lead ECG] [ECG] Stat Y 05/09/17 10:33 Completed EV echocardiogram Routine Y 05/08/17 14:14 Completed Date of admission: 05/07/17 13:22 Primary care physician: Satya Singh MD Consults: 05/07/17 14:58 Consult to Bowling Or Skating Front Desk Clerk [CONS] Routine Reason for SW Consult: WANTS TO DISCUSS NEW LIVING WILL AND POA 05/07/17 16:27 Consult to Cardiology [CONS] Routine Comment: Consulting Provider: Cardiology [facility] Reason for Consult: increasing SOB/ H/O CHF and moderate left pleural effusion Time Notified: 16:29 Call Completed: Yes Consult to Interventional Radiology [CONS] Routine Consulting Provider: Radiology Interventional Cols Reason for Consult: moderate left pleural effusion Time Notified: 16:29 Call Completed: Yes Consult to Nephrology [CONS] Routine Consulting Provider: Kidney [facility]/LEONIDAS/JANIS/NENA Reason for Consult: h/o renal transplant; medication management Time Notified: 16:30 Call Completed: Yes Hospital course: Mr. Raymond is a 71 year old male - Time Spent with Patient Total time spent providing and/or coordinating discharge services: 39min - Constitutional Vitals: Temp Pulse Resp BP Pulse Ox 98.0 F 71 16 158/71 95 05/10/17 06:00 05/10/17 06:00 05/10/17 07:55 05/10/17 06:00 05/10/17 07:55 - Attending Attestation I examined this patient and my medical decision-making was reviewed with the Resident Physician on 05/10/17. I agree with the documented findings, disposition and treatment plan as described except to the extent set forth below. Mr Raymond has been admitted for acute exac CHF. His creatinine has stabilized. He is afebrile with stable vitals and is ready for discharge home. Exam alert Comfortable Mucus membranes dry Heart distant Lungs clear now Edema improving. Plan D/C home today
[2017-05-10] MEDS: Lactobacillus 1 EACH CAP.SPRINK PO SCH (08:49)
[2017-05-10] MEDS: CycloSPORINE, Mod (Neoral) 25 MG CAPSULE PO SCH (08:49)
[2017-05-10] MEDS: Sulfamethoxazole/Trimeth DS 1 EACH TABLET PO SCH (08:50)
[2017-05-10] MEDS: Cholecalciferol (D-3) 1,000 UNIT TABLET PO SCH (08:50)
[2017-05-10] MEDS: FLUoxetine HCl 10 MG CAPSULE PO SCH (08:50)
[2017-05-10] MEDS: Isosorbide MONOnitrate (24 HR) 60 MG TAB.ER.24H PO SCH (08:50)
[2017-05-10] MEDS: amLODIPine 5 MG TABLET PO SCH (08:50)
[2017-05-10] MEDS: Multivit/Ca/Min/Fe/FA 1 TAB TABLET PO SCH (08:50)
[2017-05-10] MEDS: Aspirin 81 MG TAB.CHEW PO SCH (08:50)
[2017-05-10] MEDS: Folic Acid 1 MG TABLET PO SCH (08:50)
[2017-05-10] MEDS: (Everolimus [Zortress] 0.5 MG) PO SCH (08:51)
[2017-05-10] MEDS: Atropine Sulfate 1% 40 DROP/2 ML BOTTLE LEFT EYE SCH (08:51)
[2017-05-10] MEDS ORDERED: Furosemide 40 MG/4 ML VIAL IVP SCH (09:00)
[2017-05-10] MEDS: Insulin LISPRO 300 UNITS/3 ML VIAL SQ SCH ×2 (09:09→13:56)
[2017-05-10] MEDS: Insulin DETEMIR 100 UNIT/ML X5UNITS SQ SCH (09:10)
== END 2017-05-10 14:30 | disposition home or self-care (01) | DRG 291 ==
LOC: 2NENU 13:22
PROVIDERS: ADMIT Internal Medicine; ATTEND Internal Medicine

== ENCOUNTER 2017-11-19 16:17 | Inpatient (IN) ==
--- NOTE | 2017-11-19 17:28 | Emergency Department Note ---
Disposition Clinical Impression: Elevated troponin Anemia Qualifiers: Anemia type: unspecified type Qualified Code(s): D64.9 - Anemia, unspecified Disposition: Admitted As Inpatient Condition: Good General Adult HPI - General Chief complaint: ED Recheck/Abnormal Lab/Rx Stated complaint: Low hemoglobin Time Seen by Provider: 11/19/17 16:29 - History of Present Illness Pain Scale: 0 - Related Data Home Medications Medication Instructions Recorded Confirmed Acetaminophen [Tylenol] 325 mg PO Q4HR PRN 12/14/14 11/19/17 Aspirin 81 mg PO DAILY 12/14/14 11/19/17 Saccharomyces Boulardii [Probiotic] 250 mg PO DAILY 12/14/14 11/19/17 Tamsulosin [Flomax] 0.4 mg PO DAILY 12/14/14 11/19/17 Carvedilol [Coreg] 37.5 mg PO BID 11/11/15 11/19/17 Everolimus [Zortress] 0.5 mg PO BID 11/11/15 11/19/17 FLUoxetine HCl [Prozac] 10 mg PO DAILY 11/11/15 11/19/17 Atropine 1% Opth Drops 1 drop LEFT EYE BID 05/29/16 11/19/17 Calcitriol [Rocaltrol] 0.25 mcg PO DAILY 05/29/16 11/19/17 Insulin ASPART [Novolog Flexpen] 100 unit SQ QID PRN 05/29/16 11/19/17 Insulin Glargine [Lantus] 15 - 20 unit SQ DAILY 05/29/16 11/19/17 Budesonide/Formoterol 160/4.5 2 puff IH BIDR 11/19/16 11/19/17 [Symbicort 160/4.5] Cholecalciferol (Vitamin D3) 1,000 unit PO DAILY 11/19/16 11/19/17 [Vitamin D3] Umeclidinium [place] [Incruse 62.5 mcg IH DAILY 05/07/17 11/19/17 Ellipta] Albuterol Neb [AccuNeb] 1.25 mg IH Q4HR PRN 10/27/17 11/19/17 Docusate Sodium 100 mg PO BID 10/27/17 11/19/17 Folic Acid 400 mcg PO DAILY 10/27/17 11/19/17 Isosorbide MONOnitrate (24 HR) 30 mg PO DAILY 10/27/17 11/19/17 [Imdur] Pantoprazole Sodium 40 mg PO BID 10/27/17 11/19/17 Vitamin E (Dl,Tocopheryl Acet) 400 unit PO BID 10/27/17 11/19/17 [Vitamin E] hydrALAZINE [HydrALAZINE] 75 mg PO Q8HR 10/27/17 11/19/17 predniSONE [PredniSONE] 5 mg PO DAILY 10/27/17 11/19/17 Polyethylene Glycol 3350 [MiraLAX 1 scoop PO DAILY 11/19/17 11/19/17 Powder Bulk 17.9 Oz] Previous Rx's Medication Instructions Recorded Calcium Carbonate [Tums] 1,250 mg PO TID tab.chew 11/05/17 Epoetin Tee [Procrit] 30,000 unit SQ WE mls 11/05/17 Minocycline [Minocin] 100 mg PO Q12HR 20 Days #40 capsule 11/05/17 Torsemide [Demadex] 40 mg PO TID #90 tablet 11/05/17 Allergies Allergy/AdvReac Type Severity Reaction Status Date / Time levofloxacin [From Levaquin] AdvReac Severe Nausea Verified 11/20/17 08:50 Danadgf-Pcj-Knk Reductase AdvReac Weakness Verified 11/20/17 08:50 Inhibitor [Statins] Past Medical History - Past Medical History Medical history: Reports: arthritis, CHF, COPD, coronary artery disease, diabetes, dialysis, GERD, GI bleed, hyperlipidemia, hypertension, peripheral artery disease, renal disease, valvular heart disease Surgical history: Reports: coronary bypass (CABG), heart valve replacement, transplant, other Psychiatric history: Reports: depression - Social History Smoking Status: Former smoker Smokeless Tobacco Status: No Alcohol use: Reports: none Drug use: Reports: none Course Vital Signs Temperature 98.5 F 11/19/17 16:35 Pulse Rate 88 11/19/17 16:35 Respiratory Rate 18 11/19/17 16:35 Blood Pressure 132/52 11/19/17 16:35 O2 Sat by Pulse Oximetry 96 11/19/17 16:35 Temperature 97.9 F 11/20/17 22:38 Pulse Rate 90 11/20/17 22:38 Respiratory Rate 18 11/20/17 22:38 Blood Pressure 149/54 11/20/17 22:38 O2 Sat by Pulse Oximetry 98 08/22/18 22:38 Oxygen Delivery Oxygen Delivery Nasal Cannula Medical Decision Making - Lab Data Result diagrams: 11/20/17 07:55 11/20/17 07:55 Lab Results 11/19/17 11/19/17 11/19/17 Range/Units 18:26 18:26 18:26 WBC 6.0 (4.3-11.1) K/mcL RBC 2.19 L (4.19-5.50) M/mcL Hgb 5.5 L* (12.9-16.9) g/dL Hct 18.0 L (37.5-50.1) % MCV 82.2 L (83.0-100.0) fL MCH 25.1 L (28.0-33.3) pg MCHC 30.6 L (31.6-35.5) g/dL RDW 18.3 H (11.5-14.5) % Plt Count 201 (140-400) K/mcL MPV 10.4 (9.4-12.4) fL Immature Gran % 1.2 (0-4) % Seg Neutrophils % 75.9 % Lymphocytes % 7.7 % Monocytes % 14.7 % Eosinophils % 0.3 % Basophils % 0.2 % Neutrophils # 4.6 (1.6-8.9) K/mcL Lymphocytes # 0.5 L (0.6-4.6) K/mcL Monocytes # 0.9 (0.0-1.3) K/mcL Eosinophils # 0.0 (0.0-0.6) K/mcL Basophils # 0.0 (0.0-0.2) K/mcL Nucleated RBCs/100 WBC 0.3 H (0) /100 WBC Platelet Estimate Normal (Normal) Hypochromasia Present A (Not Present) Poikilocytosis 1+ A (Not Present) Anisocytosis 1+ A (Not Present) Microcytosis Present A (Not Present) Sodium 138 (136-145) mEq/L Potassium 3.8 (3.5-5.1) mEq/L Chloride 96 L (98-107) mEq/L Carbon Dioxide 30 H (23-29) mEq/L BUN > 130 H (8-23) mg/dL Creatinine 3.60 H (0.70-1.30) mg/dL Est GFR ( Amer) 20 L (> 60) Est GFR (Non-Af Amer) 17 L (> 60) BUN/Creatinine Ratio TNP Glucose 237 H (70-105) mg/dL Calculated Osmolality TNP Calcium 9.0 (8.6-10.3) mg/dL Total Bilirubin 0.4 (0.3-1.0) mg/dL AST 12 L (13-39) Units/L ALT 8 (7-52) Units/L Alkaline Phosphatase 167 H (34-104) Units/L Troponin I 0.04 H* (< 0.04) ng/mL Serum Total Protein 5.7 L (6.4-8.9) g/dL Albumin 3.1 L (3.5-5.7) g/dL Globulin 2.6 (2.4-3.5) g/dL Albumin/Globulin Ratio 1.2 (1.1-2.2) Blood Type O POSITIVE Antibody Screen NEGATIVE Crossmatch See Detail Attestation Statement - Attestation Attestation: I examined this patient and my medical decision-making was reviewed with the Resident Physician. I agree with the documented findings, disposition and treatment plan as described except to the extent set forth below. Findings consistent with anemia. This possibly due to artificial valve. Patient will be admitted after initiation of Industrial Ecologist blood cell infusion. Patient is hemodynamic stable at this time. I spent greater than 35 minutes of critical care time resuscitating this critically ill patient suffering from anemia requiring blood cell transfusion. This was excluding billable procedures.
--- NOTE | 2017-11-19 17:44 | Emergency Department Note ---
Disposition Clinical Impression: Anemia Qualifiers: Anemia type: unspecified type Qualified Code(s): D64.9 - Anemia, unspecified Disposition: Still a Patient Referrals: Satya Singh MD [Primary Care Provider] - Forms: ED Satisfaction Letter Time of Disposition: 18:54 General Adult HPI - General Chief complaint: ED Recheck/Abnormal Lab/Rx Stated complaint: Low hemoglobin Time Seen by Provider: 11/19/17 16:29 Source: patient, family Mode of arrival: private vehicle Limitations: no limitations Nursing Notes Reviewed: Yes Vital Signs Reviewed: Yes - History of Present Illness HPI Narrative: 72-year-old white male presents for "low hemoglobin." Presents from [facility] Dr. Herrera's office with reported hemoglobin of 5.9. Patient states history of blood transfusions for 2-3 years. Family adds that patient has a "rare infection" of unknown source for past 5 weeks which is being treated with IV Levaquin for past 4 weeks. 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 Since getting this infection, has needed increased blood transfusions to twice a week. Last blood transfusion was 4 days ago with 1 unit. States goal of hemoglobin above 10. Reports associated symptoms of unsteadiness on feet, weakness, leg swelling, and shortness of breath that are not new but worse recently. Denies lightheadedness , dizziness, syncope, confusion, nausea, vomiting, chest pain. Medical history includes COPD on 2 L home oxygen, kidney transplant, chronic kidney disease, aortic valve replacement with "pig valve" in 2011, repair of aortic valve 2 years ago, CABG, atrial fibrillation, CHF, diabetes, hypertension. Former smoker, denies alcohol and drugs. Pain Scale: 0 - Related Data Home Medications Medication Instructions Recorded Confirmed Acetaminophen [Tylenol] 325 mg PO Q4HR PRN 12/14/14 11/19/17 Aspirin 81 mg PO DAILY 12/14/14 11/19/17 Saccharomyces Boulardii [Probiotic] 250 mg PO DAILY 12/14/14 11/19/17 Tamsulosin [Flomax] 0.4 mg PO DAILY 12/14/14 11/19/17 Carvedilol [Coreg] 37.5 mg PO BID 11/11/15 11/19/17 Everolimus [Zortress] 0.5 mg PO BID 11/11/15 11/19/17 FLUoxetine HCl [Prozac] 10 mg PO DAILY 11/11/15 11/19/17 Atropine 1% Opth Drops 1 drop LEFT EYE BID 05/29/16 11/19/17 Calcitriol [Rocaltrol] 0.25 mcg PO DAILY 05/29/16 11/19/17 Insulin ASPART [Novolog Flexpen] 100 unit SQ QID PRN 05/29/16 11/19/17 Insulin Glargine [Lantus] 15 - 20 unit SQ DAILY 05/29/16 11/19/17 Budesonide/Formoterol 160/4.5 2 puff IH BIDR 11/19/16 11/19/17 [Symbicort 160/4.5] Cholecalciferol (Vitamin D3) 1,000 unit PO DAILY 11/19/16 11/19/17 [Vitamin D3] Umeclidinium [place] [Incruse 62.5 mcg IH DAILY 05/07/17 11/19/17 Ellipta] Albuterol Neb [AccuNeb] 1.25 mg IH Q4HR PRN 10/27/17 11/19/17 Docusate Sodium 100 mg PO BID 10/27/17 11/19/17 Folic Acid 400 mcg PO DAILY 10/27/17 11/19/17 Isosorbide MONOnitrate (24 HR) 30 mg PO DAILY 10/27/17 11/19/17 [Imdur] Pantoprazole Sodium 40 mg PO BID 10/27/17 11/19/17 Vitamin E (Dl,Tocopheryl Acet) 400 unit PO BID 10/27/17 11/19/17 [Vitamin E] hydrALAZINE [HydrALAZINE] 75 mg PO Q8HR 10/27/17 11/19/17 predniSONE [PredniSONE] 5 mg PO DAILY 10/27/17 11/19/17 Previous Rx's Medication Instructions Recorded Calcium Carbonate [Tums] 1,250 mg PO TID tab.chew 11/05/17 Epoetin Tee [Procrit] 30,000 unit SQ WE mls 11/05/17 Minocycline [Minocin] 100 mg PO Q12HR 20 Days #40 capsule 11/05/17 Polyethylene Glycol 8000 500 gm MC DAILY 30 Days #30 powder 11/05/17 [Polyethylene Glycol] Torsemide [Demadex] 40 mg PO TID #90 tablet 11/05/17 Allergies Allergy/AdvReac Type Severity Reaction Status Date / Time levofloxacin [From Levaquin] Allergy Severe Nausea Verified 11/19/17 16:36 Ktwfpyp-Uzl-Wtz Reductase Allergy Weakness Verified 11/19/17 16:36 Inhibitor [Statins] All systems ED: reviewed and negative except as stated. Past Medical History - Past Medical History Medical history: Reports: arthritis, CHF, COPD, coronary artery disease, diabetes, dialysis, GERD, GI bleed, hyperlipidemia, hypertension, peripheral artery disease, renal disease, valvular heart disease Surgical history: Reports: coronary bypass (CABG), heart valve replacement, transplant, other Psychiatric history: Reports: depression - Social History Smoking Status: Former smoker Smokeless Tobacco Status: No Alcohol use: Reports: none Drug use: Reports: none Physical Exam - General Limitations: no limitations General appearance: alert - Head Head exam: atraumatic, normocephalic, normal inspection - Eye Eye exam: Present: PERRL, EOMI. Absent: normal appearance (strabismus) - Neck Neck exam: Present: normal inspection, full ROM, trachea midline - Chest Chest inspection: Present: normal inspection, symmetric chest wall rise - Respiratory Respiratory exam: Present: normal lung sounds bilaterally - Cardiovascular Cardiovascular exam: Present: regular rate, normal rhythm, normal heart sounds, systolic murmur (Radiates to carotids) - Abdominal Exam Abdominal exam: Present: soft, Non-Tender, normal bowel sounds. Absent: tenderness, distention, guarding, rebound, rigidity, bruit - Extremities Exam Extremities exam: Present: full ROM, pedal edema (Pitting edema +2). Absent: normal inspection (Peripheral IV line in left arm. Bandaged right arm. Bandages bilateral hands.), tenderness - Neurological Exam Neurological exam: Present: alert, oriented X3, CN II-XII intact - Psychiatric Psychiatric exam: Present: normal affect, normal mood - Skin Skin exam: Present: warm, dry, intact. Absent: diaphoresis Course Course Narrative: 72-year-old male presents from [facility] Dr. Herrera's office with "low hemoglobin" 5.9 requiring blood transfusion. History of blood transfusions for 2-3 years. Also reports bacteremia with opportunistic bacteria for 5 weeks being treated with IV Levaquin for 4 weeks. Since infection, has required increased frequency of blood transfusion to 2 times a week. Has had worsening of unsteadiness on feet, weakness, leg swelling, and shortness of breath. He has complicated medical history including heart valve replacement with bioprosthetic in 2011 with repair 2 years ago, COPD on 2 L home oxygen, kidney transplant, COPD, CABG, CHF, hypertension, diabetes, and atrial fibrillation. Patient is alert and oriented, hemodynamically stable, and of nontoxic appearance. On exam, there is systolic murmur that radiates to carotids. Lungs are clear with good airflow. There is 2+ pitting edema of lower extremities. Will order labwork including CBC and type and screen. Will order 2 units packed red blood cells to be transfused after lab results. - Reevaluation(s) Reevaluation #1: Review of medical records reveals decreased hemoglobin 5.9. Creatinine elevated 3.74, was 3.35 seven days ago. GFR 16, was 18. Alkaline phosphatase elevated 162. ESR elevated at 44. CXR reveals moderate left pleural effusion with infiltrate in left lung base. No fever or worsening of cough/sputum. Patient informed of results. Patient states had thoracentesis with chest tube 3 weeks ago at [facility]. Lab results pending. Will sign out to Dr. Wheeler. Time: 18:54 Vital Signs Temperature 98.5 F 11/19/17 16:35 Pulse Rate 88 11/19/17 16:35 Respiratory Rate 18 11/19/17 16:35 Blood Pressure 132/52 11/19/17 16:35 O2 Sat by Pulse Oximetry 96 11/19/17 16:35 Temperature 98.5 F 11/19/17 17:35 Pulse Rate 88 11/19/17 17:35 Respiratory Rate 18 11/19/17 17:35 Blood Pressure 132/52 11/19/17 17:35 O2 Sat by Pulse Oximetry 96 11/19/17 17:35 Oxygen Delivery Oxygen Delivery Room Air Medical Decision Making - [facility] Narrative Medical decision making narrative: Chest X-Ray 11/19/17 17:09 IMPRESSION: Infiltrate at the left lung base. Moderate left pleural effusion. D/ / Audrey Flynn MD / Audrey Flynn MD Interpreting Provider: Audrey Flynn MD - Medical Records Medical records reviewed: Yes I reviewed the patient's medical records. - Lab Data Lab results reviewed: Yes I reviewed the patient's lab results. - Radiology Data Radiology results reviewed: Yes I reviewed the patient's radiology results.
[2017-11-19 18:43] LABS: Mean Corpuscular HGB Conc 30.6 g/dL (31.6-35.5); Nucleated Red Blood Cells 0.3 /100 WBC (0)
[2017-11-19 18:45] LABS: Basophils % 0.2 %; Eosinophils % 0.3 %; Immature Granulocytes % 1.2 % (0-4); Lymphocytes # 0.5 K/mcL (0.6-4.6); Lymphocytes % 7.7 %; Mean Corpuscular Hemoglobin 25.1 pg (28.0-33.3); Mean Corpuscular Volume 82.2 fL (83.0-100.0); Mean Platelet Volume 10.4 fL (9.4-12.4); Monocytes # 0.9 K/mcL (0.0-1.3); Monocytes % 14.7 %; Platelet Count 201 K/mcL (140-400); Red Blood Count 2.19 M/mcL (4.19-5.50); Red Cell Distribution Width 18.3 % (11.5-14.5); Segmented Neutrophils % 75.9 %
[2017-11-19 19:02] LABS: Neutrophils # 4.6 K/mcL (1.6-8.9)
[2017-11-19 19:04] LABS: Alanine Aminotransferase 8 Units/L (7-52); Albumin 3.1 g/dL (3.5-5.7); Albumin/Globulin Ratio 1.2 (1.1-2.2); Alkaline Phosphatase 167 Units/L (34-104); Aspartate Amino Transferase 12 Units/L (13-39); Bilirubin,Total 0.4 mg/dL (0.3-1.0); Blood Urea Nitrogen > 130 mg/dL (8-23); Carbon Dioxide 30 mEq/L (23-29); Chloride 96 mEq/L (98-107); Globulin 2.6 g/dL (2.4-3.5); Glucose 237 mg/dL (70-105); Potassium 3.8 mEq/L (3.5-5.1); Sodium 138 mEq/L (136-145); Total Protein 5.7 g/dL (6.4-8.9); Troponin I 0.04 ng/mL (< 0.04); eGFR For Non-African Americans 17 (> 60)
[2017-11-19 19:07] LABS: Hemoglobin 5.5 g/dL (12.9-16.9)
[2017-11-19 19:12] LABS: Anisocytosis 1+ (Not Present); Hypochromasia Present (Not Present); Microcytosis Present (Not Present)
[2017-11-19 19:13] LABS: Platelet Estimate Normal (Normal); Poikilocytosis 1+ (Not Present)
--- NOTE | 2017-11-19 19:14 | Emergency Department Note ---
Disposition Clinical Impression: Elevated troponin Anemia Qualifiers: Anemia type: unspecified type Qualified Code(s): D64.9 - Anemia, unspecified Disposition: Admitted As Inpatient Condition: Good Referrals: Satya Singh MD [Primary Care Provider] - Forms: ED Satisfaction Letter General Adult HPI - General Chief complaint: ED Recheck/Abnormal Lab/Rx Stated complaint: Low hemoglobin Time Seen by Provider: 11/19/17 16:29 Source: patient, family Mode of arrival: private vehicle Limitations: no limitations - History of Present Illness Pain Scale: 0 - Related Data Home Medications Medication Instructions Recorded Confirmed Acetaminophen [Tylenol] 325 mg PO Q4HR PRN 12/14/14 11/19/17 Aspirin 81 mg PO DAILY 12/14/14 11/19/17 Saccharomyces Boulardii [Probiotic] 250 mg PO DAILY 12/14/14 11/19/17 Tamsulosin [Flomax] 0.4 mg PO DAILY 12/14/14 11/19/17 Carvedilol [Coreg] 37.5 mg PO BID 11/11/15 11/19/17 Everolimus [Zortress] 0.5 mg PO BID 11/11/15 11/19/17 FLUoxetine HCl [Prozac] 10 mg PO DAILY 11/11/15 11/19/17 Atropine 1% Opth Drops 1 drop LEFT EYE BID 05/29/16 11/19/17 Calcitriol [Rocaltrol] 0.25 mcg PO DAILY 05/29/16 11/19/17 Insulin ASPART [Novolog Flexpen] 100 unit SQ QID PRN 05/29/16 11/19/17 Insulin Glargine [Lantus] 15 - 20 unit SQ DAILY 05/29/16 11/19/17 Budesonide/Formoterol 160/4.5 2 puff IH BIDR 11/19/16 11/19/17 [Symbicort 160/4.5] Cholecalciferol (Vitamin D3) 1,000 unit PO DAILY 11/19/16 11/19/17 [Vitamin D3] Umeclidinium [place] [Incruse 62.5 mcg IH DAILY 05/07/17 11/19/17 Ellipta] Albuterol Neb [AccuNeb] 1.25 mg IH Q4HR PRN 10/27/17 11/19/17 Docusate Sodium 100 mg PO BID 10/27/17 11/19/17 Folic Acid 400 mcg PO DAILY 10/27/17 11/19/17 Isosorbide MONOnitrate (24 HR) 30 mg PO DAILY 10/27/17 11/19/17 [Imdur] Pantoprazole Sodium 40 mg PO BID 10/27/17 11/19/17 Vitamin E (Dl,Tocopheryl Acet) 400 unit PO BID 10/27/17 11/19/17 [Vitamin E] hydrALAZINE [HydrALAZINE] 75 mg PO Q8HR 10/27/17 11/19/17 predniSONE [PredniSONE] 5 mg PO DAILY 10/27/17 11/19/17 Previous Rx's Medication Instructions Recorded Calcium Carbonate [Tums] 1,250 mg PO TID tab.chew 11/05/17 Epoetin Tee [Procrit] 30,000 unit SQ WE mls 11/05/17 Minocycline [Minocin] 100 mg PO Q12HR 20 Days #40 capsule 11/05/17 Polyethylene Glycol 8000 500 gm MC DAILY 30 Days #30 powder 11/05/17 [Polyethylene Glycol] Torsemide [Demadex] 40 mg PO TID #90 tablet 11/05/17 Allergies Allergy/AdvReac Type Severity Reaction Status Date / Time levofloxacin [From Levaquin] Allergy Severe Nausea Verified 11/19/17 16:36 Bivbkfs-Lwk-Fht Reductase Allergy Weakness Verified 11/19/17 16:36 Inhibitor [Statins] Past Medical History - Past Medical History Medical history: Reports: arthritis, CHF, COPD, coronary artery disease, diabetes, dialysis, GERD, GI bleed, hyperlipidemia, hypertension, peripheral artery disease, renal disease, valvular heart disease Surgical history: Reports: coronary bypass (CABG), heart valve replacement, transplant, other Psychiatric history: Reports: depression - Social History Smoking Status: Former smoker Smokeless Tobacco Status: No Alcohol use: Reports: none Drug use: Reports: none Physical Exam - General Limitations: no limitations General appearance: alert Course Course Narrative: Patient was taken over at sign out from Dr. Ledbetter. Patient has aortic valve replacement. On Coumadin. Patient has kidney disease and sees Dr. Herrera. Was seen at [place] and transferred here for further admission and workup of anemia. Patient initially did not want blood work drawn secondary to having blood work done at both [place] and the cancer center. It was felt I Dr. Ledbetter to be relevant to have this repeated. Blood work was obtained as well as sent down for type and cross. The blood work did come back showing significant anemia. He does have an elevated troponin as well as elevated creatinine. Please are likely secondary to worsening anemia. At this time the patient will receive a transfusion of 2 units and be admitted to the hospital service. His previous records including previous oncology no have been reviewed. Patient was seen at bedside and is in no distress. QUESTIONS from him and his family were answered. Patient understands reason for admission at this time. - Consultations Consultation #1: Discussed with hospitalist. Dr. Hazel. Patient with concern for left- sided infiltrate. I do get a chance to go back and talk with the patient and this does not appear to be an acute finding. Cultures will be obtained however no need for broad-spectrum antibiotics as he is not having any acute symptoms. Patient has been on IV Levaquin and did get his dose today. Vital Signs Temperature 98.5 F 11/19/17 16:35 Pulse Rate 88 11/19/17 16:35 Respiratory Rate 18 11/19/17 16:35 Blood Pressure 132/52 11/19/17 16:35 O2 Sat by Pulse Oximetry 96 11/19/17 16:35 Temperature 98.5 F 11/19/17 17:35 Pulse Rate 87 11/19/17 17:46 Respiratory Rate 20 11/19/17 17:46 Blood Pressure 118/61 11/19/17 17:46 O2 Sat by Pulse Oximetry 100 11/19/17 17:46 Oxygen Delivery Oxygen Delivery Nasal Cannula Medical Decision Making - Lab Data Result diagrams: 11/19/17 18:26 11/19/17 18:26 Lab Results 11/19/17 11/19/17 11/19/17 Range/Units 18:26 18:26 18:26 WBC 6.0 (4.3-11.1) K/mcL RBC 2.19 L (4.19-5.50) M/mcL Hgb 5.5 L* (12.9-16.9) g/dL Hct 18.0 L (37.5-50.1) % MCV 82.2 L (83.0-100.0) fL MCH 25.1 L (28.0-33.3) pg MCHC 30.6 L (31.6-35.5) g/dL RDW 18.3 H (11.5-14.5) % Plt Count 201 (140-400) K/mcL MPV 10.4 (9.4-12.4) fL Immature Gran % 1.2 (0-4) % Seg Neutrophils % 75.9 % Lymphocytes % 7.7 % Monocytes % 14.7 % Eosinophils % 0.3 % Basophils % 0.2 % Neutrophils # 4.6 (1.6-8.9) K/mcL Lymphocytes # 0.5 L (0.6-4.6) K/mcL Monocytes # 0.9 (0.0-1.3) K/mcL Eosinophils # 0.0 (0.0-0.6) K/mcL Basophils # 0.0 (0.0-0.2) K/mcL Nucleated RBCs/100 WBC 0.3 H (0) /100 WBC Platelet Estimate Normal (Normal) Hypochromasia Present A (Not Present) Poikilocytosis 1+ A (Not Present) Anisocytosis 1+ A (Not Present) Microcytosis Present A (Not Present) Sodium 138 (136-145) mEq/L Potassium 3.8 (3.5-5.1) mEq/L Chloride 96 L (98-107) mEq/L Carbon Dioxide 30 H (23-29) mEq/L BUN > 130 H (8-23) mg/dL Creatinine 3.60 H (0.70-1.30) mg/dL Est GFR ( Amer) 20 L (> 60) Est GFR (Non-Af Amer) 17 L (> 60) BUN/Creatinine Ratio TNP Glucose 237 H (70-105) mg/dL Calculated Osmolality TNP Calcium 9.0 (8.6-10.3) mg/dL Total Bilirubin 0.4 (0.3-1.0) mg/dL AST 12 L (13-39) Units/L ALT 8 (7-52) Units/L Alkaline Phosphatase 167 H (34-104) Units/L Troponin I 0.04 H* (< 0.04) ng/mL Serum Total Protein 5.7 L (6.4-8.9) g/dL Albumin 3.1 L (3.5-5.7) g/dL Globulin 2.6 (2.4-3.5) g/dL Albumin/Globulin Ratio 1.2 (1.1-2.2) Blood Type O POSITIVE Antibody Screen NEGATIVE Crossmatch See Detail
[2017-11-19] MEDS ORDERED: Acetaminophen 325 MG TABLET PO PRN (20:43)
[2017-11-19] MEDS ORDERED: Naloxone 0.4 MG/ML INJ IVP PRN (20:43)
[2017-11-19] MEDS ORDERED: Albuterol Neb 1.25 MG/3 ML VIAL IH PRN (20:45)
[2017-11-19] MEDS ORDERED: Dextrose Gel 15 GM/37.5 ML TUBE PO PRN ×2 (20:52)
[2017-11-19] MEDS ORDERED: *HR* Dextrose 50 % in Water (Syg) 50 ML SYRINGE IVP PRN (20:52)
[2017-11-19] MEDS ORDERED: D5% in Water 1,000 ML IVC PRN (20:52)
[2017-11-19] MEDS ORDERED: 0.9 % Sodium Chloride 500 ML ONE (21:00)
[2017-11-19] MEDS ORDERED: Torsemide 20 MG TABLET PO SCH (21:00)
[2017-11-19] MEDS ORDERED: (Everolimus [Zortress] 0.5 MG) PO SCH (21:00)
--- NOTE | 2017-11-19 21:40 | Internal Med History&Physical ---
<Kg Jalloh - Last Filed: 11/19/17 21:48> Date of Encounter: 11/19/17 Time of Encounter: 21:29 Internal Medicine - H&P: HPI Chief complaint: anemia, sent from nephro Admitted From: Emergency Dept History of present illness: Mr. Raymond is a 72 year old male with past medical history of CKD stage IV status post renal transplant on immunosuppressant therapy, CAD status post CABG 4, aortic regurgitation status post aVR, type 2 diabetes, hypertension, arthritis, COPD who presented to emergency department at the urging of his aml analyst due to anemia. He does have a chronic history of anemia which usually runs with a hemoglobin of 6-8. He has had this worked up in the past including multiple admissions to [facility] and transfusions approximately every 3-6 months with iron infusions per his aml analyst. He states his most recent EGD/colonoscopy/Endoscopy Were Performed Approximately One Month Ago at [facility] and They Found Possible Gastritis but No Evidence of Occult Bleeding. He Is Also Recently Seen by [facility] this morning who had begun workup for his anemia. He is also been seen at [facility] recently admitted for pneumonia as well as Elizabethkingia meningoseptica bacteremia which he has been taking minocycline. He was scheduled to follow-up with infectious disease at [facility] on Saturday. At time of interview today, patient states that he is not experiencing any symptoms of lightheadedness, dizziness, weakness, shortness of breath or chest pain, nausea, vomiting. He denies any bright red blood per rectum but does state he has been having dark bowel movements chronically. Denies any symptoms of fevers or chills or other systemic infectious symptoms. He also admits to chronic lower extremity swelling which is improved from his baseline. In the emergency room, vital signs were unremarkable and he is tolerating her percent on his home oxygen requirement of 2 L. Vital signs significant for an H /H of 5.5/18.0. He normally has no white count elevation. His BUNs/creatinine was significant and greater than 130/3.60. Troponin mildly elevated at 0.04. CXR was obtained and showed left pleural effusion which patient has had thoracentesis for in the past. Past Med Surg Social Fam HX - Past Medical History Medical history: arthritis, CHF, COPD, coronary artery disease, diabetes, dialysis, GERD, GI bleed, hyperlipidemia, hypertension, peripheral artery disease, renal disease, valvular heart disease Additional medical history: kidney transplant Psychiatric history: depression - Past Surgical History Surgical History: coronary bypass (CABG), heart valve replacement, transplant, other Additional surgical history: PIG VALVE AORTIC VALVE REPLACEMENT - Social History Smoking Status: Former smoker Smokeless Tobacco Status: No Alcohol use: none Drug use: none - Family History Mother Adopted: No Family Member Ethnicity: Non- Living Status: Hx Family Cardiac Disorders: No Hx Family Respiratory Disorders: No Hx Family Cancer: No Hx Family GI Disorders: Yes (Cholecycstectomy) Hx Family Endocrine Disorder: No Hx Family Neuromuscular Disorders: No Hx Family Neurologic Disorders: No Hx Family HEENT Disorders: No Hx Family Autoimmune Disorders: No Father Living Status: Sister Living Status: Still Living Internal Medicine - H&P: Meds Acetaminophen [Tylenol] 325 mg PO Q4HR PRN 12/14/14 [History] Aspirin 81 mg PO DAILY 12/14/14 [History] Saccharomyces Boulardii [Probiotic] 250 mg PO DAILY 12/14/14 [History] Tamsulosin [Flomax] 0.4 mg PO DAILY 12/14/14 [History] Carvedilol [Coreg] 37.5 mg PO BID 11/11/15 [History] Everolimus [Zortress] 0.5 mg PO BID 11/11/15 [History] FLUoxetine HCl [Prozac] 10 mg PO DAILY 11/11/15 [History] Atropine 1% Opth Drops 1 drop LEFT EYE BID 05/29/16 [History] Calcitriol [Rocaltrol] 0.25 mcg PO DAILY 05/29/16 [History] Insulin ASPART [Novolog Flexpen] 100 unit SQ QID PRN 05/29/16 [History] Insulin Glargine [Lantus] 15 - 20 unit SQ DAILY 05/29/16 [History] Budesonide/Formoterol 160/4.5 [Symbicort 160/4.5] 2 puff IH BIDR 11/19/16 [ History] Cholecalciferol (Vitamin D3) [Vitamin D3] 1,000 unit PO DAILY 11/19/16 [History] Umeclidinium [place] [Incruse Ellipta] 62.5 mcg IH DAILY 05/07/17 [History] Albuterol Neb [AccuNeb] 1.25 mg IH Q4HR PRN 10/27/17 [History] Docusate Sodium 100 mg PO BID 10/27/17 [History] Folic Acid 400 mcg PO DAILY 10/27/17 [History] Isosorbide MONOnitrate (24 HR) [Imdur] 30 mg PO DAILY 10/27/17 [History] Pantoprazole Sodium 40 mg PO BID 10/27/17 [History] Vitamin E (Dl,Tocopheryl Acet) [Vitamin E] 400 unit PO BID 10/27/17 [History] hydrALAZINE [HydrALAZINE] 75 mg PO Q8HR 10/27/17 [History] predniSONE [PredniSONE] 5 mg PO DAILY 10/27/17 [History] Calcium Carbonate [Tums] 1,250 mg PO TID tab.chew 11/05/17 [Rx] Epoetin Tee [Procrit] 30,000 unit SQ WE mls 11/05/17 [Rx] Minocycline [Minocin] 100 mg PO Q12HR 20 Days #40 capsule 11/05/17 [Rx] Torsemide [Demadex] 40 mg PO TID #90 tablet 11/05/17 [Rx] Polyethylene Glycol 3350 [MiraLAX Powder Bulk 17.9 Oz] 1 scoop PO DAILY [History] 3 Allergy/AdvReac Type Severity Reaction Status Date / Time levofloxacin [From Levaquin] Allergy Severe Nausea Verified 11/19/17 16:36 Tnquofh-Bwz-Rst Reductase Allergy Weakness Verified 11/19/17 16:36 Inhibitor [Statins] All Systems PM: A 10-system review of systems was performed and is negative for pertinent findings except as documented above in the HPI. Review of systems: - Constitutional: Denies fevers, chills, weight loss, generalized fatigue - EENT: Denies vision changes/blurriness, tinnitus, auditory changes, rhinorrhea , congestion, sore throat, odynaphagia - CVS: Denies chest pain, palpitations, PIMENTEL, orthopnea. Admits to edema - Pulm: Denies SOB, cough, sputum, hematemesis, wheezing - GI: Denies abdominal pain, anorexia, nausea, vomiting, diarrhea, constipation. Admits to dark bowel movements - : Denies dysuria, increased frequency, urgency, hematuria, - Heme: Denies ease of bleeding or bruising - Skin: Denies rashes, ulcers, color changes, - Neuro: Denies RAUSCH, paresthesias, focal deficits, ataxia, numbness, tingling. - Constitutional Vitals: Temp Pulse Resp BP Pulse Ox 97.9 F 93 16 162/61 100 11/19/17 21:14 11/19/17 21:14 11/19/17 21:14 11/19/17 21:14 11/19/17 17:46 Exam: Gen.: Vitals noted. No acute distress. AAOx3 HEENT: PERRL/EOMI, oropharynx clear, Normocephalic, atraumatic, MMM. Pale conjunctiva Cardiac: RRR, systolic murmur, +S1/S2 Pulmonary: CTA bilaterally, no wheezes, rales or rhonchi, equal chest expansion. Decreased lung sounds at bases Abdomen: soft, nontender, BS noted, no guarding Extremities: 3+ BLE edema, nontender calf, no cyanosis or clubbing Neuro: A&Ox3, moves all extremities, no focal deficits Psych: Appropriate mood and behavior Internal Med - H&P Results - Labs CBC & Chem 7: 11/19/17 18:26 11/19/17 18:26 Labs: Short CBC 11/19/17 Range/Units 18:26 WBC 6.0 (4.3-11.1) K/mcL Hgb 5.5 L* (12.9-16.9) g/dL Hct 18.0 L (37.5-50.1) % Plt Count 201 (140-400) K/mcL Neutrophils # 4.6 (1.6-8.9) K/mcL BMP 11/19/17 18:26 Sodium 138 Potassium 3.8 Chloride 96 L Carbon Dioxide 30 H BUN > 130 H Creatinine 3.60 H Glucose 237 H Calcium 9.0 Cardiac Enzymes 11/19/17 Range/Units 18:26 Troponin I 0.04 H* (< 0.04) ng/mL Liver Function 11/19/17 Range/Units 18:26 Total Bilirubin 0.4 (0.3-1.0) mg/dL AST 12 L (13-39) Units/L ALT 8 (7-52) Units/L Alkaline Phosphatase 167 H (34-104) Units/L Albumin 3.1 L (3.5-5.7) g/dL - Impressions ITS Impressions Chest X-Ray 11/19/17 17:09 IMPRESSION: Infiltrate at the left lung base. Moderate left pleural effusion. D/ / Audrey Flynn MD / Audrey Flynn MD Interpreting Provider: Audrey Flynn MD - Assessment and plan (1) Anemia Current Visit: Yes Status: Chronic Assessment and plan: - Acute on chronic anemia of unclear etiology - Likely element of iron deficiency anemia in combination with chronic kidney disease. - Possibly exacerbated with questionable GI bleed. - Consultation with hematology earlier this afternoon and once suspect as above and were also working up a hemolysis and celiac disease - H/H of 5.5/18.0, baseline hemoglobin appears to be around 6-7. - Per patient's family, he has required transfusions approximately every 3 months but has been more recently lately. He reportedly did have a transfusion approximately 4 days ago at [place]. - He had an recent GI workup at [facility] including EGD/colonoscopy/Endoscopy Which Was Negative for Bleed per Family. - Patient does admit to dark stools but is otherwise asymptomatic Plan - Hematology consult, appreciate recommendations - We will attempt to obtain records from [place] and [facility]. We will hold off consulting GI at this time - Ordered for 2 units of PRBCs and emergency room, currently transfusing - Protonix 40 mg twice a day, Carafate - We will also place on hydrocortisone 50 mg every 8 hours as he is on adrenal suppression therapy at home and at an increased risk for shock. - Continue monitoring with labs Qualifiers: Anemia type: unspecified type Qualified Code(s): D64.9 - Anemia, unspecified (2) CKD (chronic kidney disease) stage 4, GFR 15-29 ml/min Current Visit: Yes Status: Chronic Assessment and plan: - BUNs/creatinine of greater than 130/3.60 - Known history of stage IV CKD - Baseline creatinine appears to be at high twos however has been increasing recently per most recent documentation. Possibly secondary to increased diuretic use. - BUNs and also possibly increased secondary to upper GI bleed as above - Status post renal transplant in early 1999s - Consult to nephrology, appreciate recommendations - Avoid nephrotoxic agents, renally dose medications (3) CAD (coronary artery disease) of artery bypass graft Current Visit: Yes Status: Chronic Assessment and plan: No complaints of chest pain, continue home medications Qualifiers: [place] vs. transplanted heart: [place] heart Associated angina: without angina Qualified Code(s): I25.810 - Atherosclerosis of coronary artery bypass graft(s) without angina pectoris (4) S/P kidney transplant Current Visit: Yes Status: Chronic Assessment and plan: As above for CKD Continue home immunosuppressant medications, consult to nephrology (5) HTN (hypertension) Current Visit: Yes Status: Chronic Assessment and plan: Well-controlled at 118/61 Will continue home medications Qualifiers: Hypertension type: essential hypertension Qualified Code(s): I10 - Essential (primary) hypertension (6) DM (diabetes mellitus) Current Visit: Yes Status: Chronic Assessment and plan: Blood sugar on presentation of 237 ADA diet, sliding scale insulin Qualifiers: Diabetes mellitus type: type 2 Diabetes mellitus mcfp insulin use: with termite treater helper use Diabetes mellitus complication status: with kidney complications Diabetes mellitus complication detail: with chronic kidney disease Chronic kidney disease stage: stage 4 (severe) Qualified Code(s): E11.22 - Type 2 diabetes mellitus with diabetic chronic kidney disease; N18.4 - Chronic kidney disease, stage 4 (severe); Z79.4 - group home (current) use of insulin (7) History of aortic valve replacement with bioprosthetic valve Current Visit: Yes Status: Chronic (8) Elevated troponin Current Visit: Yes Status: Acute Assessment and plan: Troponin 0.04 which is likely elevated in the setting of chronic kidney disease as well as anemia No complaint of chest pain We will continue monitoring (9) DVT prophylaxis Current Visit: Yes Status: Acute Assessment and plan: - Holding chemical DVT prophylaxis in the setting of anemia Scds (10) History of bacteremia Current Visit: Yes Status: Chronic Assessment and plan: - Per patient history, 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 Repeat blood cultures drawn emergency room as he is on an immunocompromising medicines - Consult infectious disease, patient recommendations - Records requested from [facility]. Reportedly diagnosed 4 weeks ago. Possible source per patient's family is PNA. - Patient is asymptomatic at this time - Time Spent With Patient Total time spent is greater than 50% in coordination of care (as documented) at patient's floor/unit and/or counseling patient: <Elpidio Hazel - Last Filed: 11/19/17 23:49> Date of Encounter: 11/19/17 Time of Encounter: 22:35 - Constitutional Constitutional: fatigue, malaise, no chills, no fever(s), no night sweats - EENT Eyes: no change in vision Ears: no tinnitus Nose, mouth and throat: no nasal congestion, no sore throat - Cardiovascular Cardiovascular ROS IM: dyspnea on exertion, edema, no chest pain, no dyspnea, no orthopnea, no paroxysmal nocturnal dyspnea - Respiratory Respiratory: no cough, no hemoptysis, no chest congestion, no excessive phlegm production, no change in phlegm color - Gastrointestinal Gastrointestinal: melena, no abdominal pain, no diarrhea, no hematemesis, no hematochezia, no vomiting - Genitourinary Genitourinary ROS male: no dysuria, no flank pain, no hematuria - Musculoskeletal Musculoskeletal ROS IM: no arthralgias, no back pain - Integumentary Integumentary IM: no rash - Neurological Neurological ROS: no dizziness, no focal weakness, no frequent falls, no headache(s) - Psychiatric Psychiatric: no anxiety, no depression - Endocrine Endocrine IM: no polydipsia, no polyphagia, no polyuria - Allergic/Immunologic Allergic/Immunologic: no wheezing, no GI upset with certain foods - Constitutional Vitals: Temp Pulse Resp BP Pulse Ox 98.2 F 85 16 162/56 98 11/19/17 23:23 11/19/17 23:23 11/19/17 23:23 11/19/17 23:23 11/19/17 23:23 General appearance: Present: cooperative, A&O X 3, pleasant, no acute distress - Eye Eye exam: Present: EOMI. Absent: scleral icterus - ENT ENT exam: Present: mucous membranes dry, normal exam, normal oropharynx - Neck Neck exam general surgery: Present: full ROM, supple. Absent: tenderness - Respiratory Respiratory exam: Present: decreased breath sounds (both base with subtle crackles left base). Absent: chest wall tenderness, respiratory distress - Cardiovascular Cardiovascular exam: Present: RRR, +S1, +S2, systolic murmur - GI/Abdominal GI/Abdominal exam: Present: normal bowel sounds, soft. Absent: guarding, hepatomegaly, rebound, splenomegaly, tenderness - Extremities Exam Extremities exam: Present: full ROM, pedal edema (3+), warm, radial pulses palpable and symmetrical. Absent: calf tenderness, tenderness - Back Exam Back exam: Absent: CVA tenderness (L), CVA tenderness (R) - Neurological Exam Neurological exam: Present: alert, oriented X3, no focal deficits - Psychiatric Psychiatric exam: Present: normal affect, normal mood - Skin Skin exam: Present: dry, warm Internal Med - H&P Results - Labs CBC & Chem 7: 11/19/17 18:26 11/19/17 18:26 - Assessment and plan (1) Anemia Current Visit: Yes Status: Chronic Qualifiers: Anemia type: unspecified type Qualified Code(s): D64.9 - Anemia, unspecified (2) CAD (coronary artery disease) of artery bypass graft Current Visit: Yes Status: Chronic Qualifiers: [place] vs. transplanted heart: [place] heart Associated angina: without angina Qualified Code(s): I25.810 - Atherosclerosis of coronary artery bypass graft(s) without angina pectoris (3) S/P kidney transplant Current Visit: Yes Status: Chronic (4) HTN (hypertension) Current Visit: Yes Status: Chronic Qualifiers: Hypertension type: essential hypertension Qualified Code(s): I10 - Essential (primary) hypertension (5) DM (diabetes mellitus) Current Visit: Yes Status: Chronic Qualifiers: Diabetes mellitus type: type 2 Diabetes mellitus mcfp insulin use: with mcfp use Diabetes mellitus complication status: with kidney complications Diabetes mellitus complication detail: with chronic kidney disease Chronic kidney disease stage: stage 4 (severe) Qualified Code(s): E11.22 - Type 2 diabetes mellitus with diabetic chronic kidney disease; N18.4 - Chronic kidney disease, stage 4 (severe); Z79.4 - group home (current) use of insulin (6) DVT prophylaxis Current Visit: Yes Status: Acute (7) History of aortic valve replacement with bioprosthetic valve Current Visit: Yes Status: Chronic (8) CKD (chronic kidney disease) stage 4, GFR 15-29 ml/min Current Visit: Yes Status: Chronic (9) Elevated troponin Current Visit: Yes Status: Acute (10) History of bacteremia Current Visit: Yes Status: Chronic - Time Spent With Patient Total time spent is greater than 50% in coordination of care (as documented) at patient's floor/unit and/or counseling patient: - Attending Attestation I discussed the patient [place], PMH, ROS, lab data, and exam findings with Dr. Jalloh. I then saw and examined patient independently as well. Patient has had extensive recent GI workup at [facility] which was reportedly negative for the possibility of GI blood loss. Additionally, he has been on antibiotics for over a month now for a bloodstream infection. He denies any fevers, chills, or night sweats, but he has had some malaise, fatigue, and generalized weakness. The etiology of his anemia is unclear but can be multifactorial. It can be from chronic kidney disease, undiagnosed GI blood loss, bone marrow suppression from antirejection medications, and/or other causes. I met with patient and family in the ER and assessed the patient independently. He does not appear acutely ill at this time. However, if he has any acute decompensation, he will need further intervention and likely transfer to [facility] where he will likely benefit from Transplant medicine services, ID services, GI services , and further subspecialty consultation which may not be available here at [facility]. For now, we will consult our aml analyst, infectious disease, and oil inspector. We will transfuse him with the blood as noted above. We will continue him on his home medications including his antibiotics. I did ask the ER to order blood cultures. Additionally, we will try to obtain microbiology lab results from [facility] and GI records from [facility]. Other than my comments noted above and documented exam findings, I agree with Dr. Daniel Jalloh.
[2017-11-19] MEDS ORDERED: 0.9 % Sodium Chloride 250 ML ONE (22:43)
[2017-11-19] MEDS: Budesonide/Formoterol 160/4.5 1 PUFF INH IH SCH (23:19)
[2017-11-19] MEDS ORDERED: Levofloxacin 500 MG/100 ML 500 MG/100 ML BAG IVPB SCH (23:45)
[2017-11-19] MEDS: Sucralfate 1 GM TABLET PO SCH (23:59)
[2017-11-20] MEDS ORDERED: Hydrocortisone Sodium Succ 100 MG/2 ML VIAL IVP SCH
[2017-11-20] MEDS: Insulin DETEMIR 100 UNIT/ML X5UNITS SQ SCH ×2 (00:01→21:15)
[2017-11-20] MEDS: Atropine 1% Opth Drops 100 DROP/5 ML BOTTLE OP SCH ×3 (00:11→19:42)
[2017-11-20] MEDS ORDERED: Hydrocortisone Sodium Succ 100 MG/2 ML VIAL IVP ONE (00:14)
[2017-11-20] MEDS: Insulin LISPRO 300 UNITS/3 ML VIAL SQ SCH ×5 (00:29→19:49)
[2017-11-20] MEDS ORDERED: 0.9 % Sodium Chloride 500 ML ONE (01:58)
[2017-11-20] MEDS: hydrALAZINE 25 MG TABLET PO SCH ×5 (06:21→19:41)
[2017-11-20] MEDS: Pantoprazole 40 MG VIAL IVP SCH ×2 (06:34→17:11)
[2017-11-20 09:00] LABS: Blood Urea Nitrogen > 130 mg/dL (8-23); Calcium 9.5 mg/dL (8.6-10.3); Carbon Dioxide 29 mEq/L (23-29); Chloride 99 mEq/L (98-107); Glucose 237 mg/dL (70-105); Potassium 3.6 mEq/L (3.5-5.1); Sodium 141 mEq/L (136-145); eGFR For Non-African Americans 18 (> 60)
[2017-11-20] MEDS ORDERED: Lactobacillus 1 EACH CAP.SPRINK PO SCH (09:00)
[2017-11-20] MEDS ORDERED: (Incruse Ellipta] 62.5 MCG) IH SCH (09:00)
[2017-11-20 09:03] LABS: Eosinophils % 0.3 %; Hematocrit 25.1 % (37.5-50.1); Immature Granulocytes % 1.4 % (0-4); Lymphocytes # 0.4 K/mcL (0.6-4.6); Lymphocytes % 7.1 %; Mean Corpuscular HGB Conc 31.1 g/dL (31.6-35.5); Mean Corpuscular Volume 83.7 fL (83.0-100.0); Mean Platelet Volume 10.9 fL (9.4-12.4); Monocytes # 0.7 K/mcL (0.0-1.3); Monocytes % 11.4 %; Neutrophils # 4.7 K/mcL (1.6-8.9); Nucleated Red Blood Cells 0.3 /100 WBC (0); Platelet Count 224 K/mcL (140-400); Red Cell Distribution Width 17.3 % (11.5-14.5); Segmented Neutrophils % 79.8 %
--- NOTE | 2017-11-20 09:14 | Internal Med Progress Note ---
Hospitalist Progress Note - Encounter Date of Encounter: 11/20/17 Time of Encounter: 09:12 - Subjective Interval History: Patient seen and examined this morning. Denies any new complaint. Feeling much better. Has mild shortness of breath. Denies fevers chills nausea vomiting diarrhea chest pain or abdominal pain. - Exam Vitals: Temp Pulse Resp BP Pulse Ox 97.9 F 82 16 151/66 99 11/20/17 06:57 11/20/17 06:57 11/20/17 06:57 11/20/17 06:57 11/20/17 06:57 Exam: Gen.: Vitals noted. No acute distress. AAOx3 HEENT: PERRL/EOMI, oropharynx clear, Normocephalic, atraumatic, MMM. Pale conjunctiva Cardiac: RRR, systolic murmur, +S1/S2 Pulmonary: CTA bilaterally, no wheezes, rales or rhonchi, equal chest expansion. Decreased lung sounds at bases Abdomen: soft, nontender, BS noted, no guarding Extremities: 3+ BLE edema, nontender calf, no cyanosis or clubbing Neuro: A&Ox3, moves all extremities, no focal deficits Psych: Appropriate mood and behavior Skin: multiple bruises. - Assessment and Plan (1) Anemia Current Visit: Yes Status: Chronic Assessment and Plan: - Acute on chronic anemia of unclear etiology - Likely element of iron deficiency anemia in combination with chronic kidney disease. - Possibly exacerbated with questionable GI bleed. - Consultation with hematology earlier this afternoon and once suspect as above and were also working up a hemolysis and celiac disease - H/H of 5.5/18.0, baseline hemoglobin appears to be around 6-7. - Per patient's family, he has required transfusions approximately every 3 months but has been more recently lately. He reportedly did have a transfusion approximately 4 days ago at [place]. - He had an recent GI workup at [facility] including EGD/colonoscopy/Endoscopy Which Was Negative for Bleed per Family. - Patient does admit to dark stools but is otherwise asymptomatic Plan - Hematology consult, appreciate recommendations - We will attempt to obtain records from [place] and [facility]. We will hold off consulting GI at this time - s/p 2 units of PRBCs. appropriate response. Feeling much better. - Protonix 40 mg twice a day, Carafate - f/u hemolysis workup. (2) CKD (chronic kidney disease) stage 4, GFR 15-29 ml/min Current Visit: Yes Status: Chronic Assessment and Plan: - BUNs/creatinine of greater than 130/3.60 - Known history of stage IV CKD - Baseline creatinine appears to be at high twos however has been increasing recently per most recent documentation. Possibly secondary to increased diuretic use. - BUNs and also possibly increased secondary to upper GI bleed as above - Status post renal transplant in early - nephrology Consulted. appreciate recommendations - Avoid nephrotoxic agents, renally dose medications (3) S/P kidney transplant Current Visit: Yes Status: Chronic Assessment and Plan: As above for CKD Continue home immunosuppressant medications. Nephrology consulted. (4) CAD (coronary artery disease) of artery bypass graft Current Visit: Yes Status: Chronic Assessment and Plan: No complaints of chest pain, continue home medications (5) HTN (hypertension) Current Visit: Yes Status: Chronic Assessment and Plan: Well-controlled. Will continue home medications (6) DM (diabetes mellitus) Current Visit: Yes Status: Chronic Assessment and Plan: Blood sugar on presentation of 237 ADA diet, sliding scale insulin (7) History of aortic valve replacement with bioprosthetic valve Current Visit: Yes Status: Chronic (8) Elevated troponin Current Visit: Yes Status: Acute Assessment and Plan: Troponin 0.04 which is likely elevated in the setting of chronic kidney disease as well as anemia No complaint of chest pain We will continue monitoring (9) History of bacteremia Current Visit: Yes Status: Chronic Assessment and Plan: - Per patient history, history of bacteremia with positive blood cultures for [place] meningoseptica - Patient is immunosuppressed secondary to kidney transplant in early - Patient is not meeting any sirs criteria at this time - Home minocycline and levaquin. Repeat blood cultures drawn emergency room as he is on an immunocompromising medicines. NGTD. - ID consulted. - Records requested from [facility]. Reportedly diagnosed 4 weeks ago. Possible source per patient's family is PNA. - Patient is asymptomatic at this time. - CXR with left lung infiltrate with Mod lt pleural effusion. (10) DVT prophylaxis Current Visit: Yes Status: Acute Assessment and Plan: - Holding chemical DVT prophylaxis in the setting of anemia Scds - Time Spent with Patient Total time spent is greater than 50% in coordination of care (as documented) at patient's floor/unit and/or counseling patient: Internal Medicine: Result - Labs CBC & Chem 7: 11/19/17 18:26 11/20/17 07:55 Labs: BMP 11/20/17 07:55 Sodium 141 Potassium 3.6 Chloride 99 Carbon Dioxide 29 BUN > 130 H Creatinine 3.43 H Glucose 237 H Calcium 9.5 Consult Discharge Plan - Plan Referrals: Satya Singh MD [Primary Care Provider] - (1) Anemia Qualifiers: Anemia type: unspecified type Qualified Code(s): D64.9 - Anemia, unspecified (4) CAD (coronary artery disease) of artery bypass graft Qualifiers: [place] vs. 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
[2017-11-20 09:18] LABS: Hemoglobin 7.8 g/dL (12.9-16.9)
[2017-11-20] MEDS: Tiotropium 18 MCG inhalation IH SCH (09:43)
[2017-11-20] MEDS: Budesonide/Formoterol 160/4.5 1 PUFF INH IH SCH ×2 (09:43→20:26)
[2017-11-20] MEDS: Everolimus [Zortress] 0.5 MG PO SCH ×2 (10:13→21:16)
--- NOTE | 2017-11-20 10:14 | Nephrology Consult Note ---
Date of Encounter: 11/20/17 Time of Encounter: 10:06 Assessment and Plan (1) CKD (chronic kidney disease) stage 4, GFR 15-29 ml/min Current Visit: Yes Status: Chronic S/p transplant in 2012. Is on immuno therapy. He is seen by Dr. Howard (transplant publisher assistant) twice a year and Dr. Herrera twice a year. Avoid nephrotoxins and renal dose all medications. 2000 cc fluid restriction. Renal diet. (2) Anemia Current Visit: Yes Status: Chronic Initial Hgb was 5.5 is 7.8 after 2 units PRBCs. Will do iron profile. Qualifiers: Anemia type: unspecified type Qualified Code(s): D64.9 - Anemia, unspecified (3) S/P kidney transplant Current Visit: Yes Status: Chronic see above. History of Present Illness - Reason for Consult Consult date: 11/20/17 Chronic Kidney Disease - Chief Complaint low hgb - History of Present Illness Mr. Raymond is a 72 year old Male with CKD IV with Dr. Herrera. He is s/o renal transplant on immuno therapy. Other PMH: CABG 4, aortic regurgitation status post aVR, type 2 diabetes, hypertension, arthritis, COPD. Pt presented to ED from his publisher assistant due to anemia. Pt's Hgb is chronically low between 6-8. He has had several workups and transfusions from other facilities. The most recent was a month ago at [facility] that was essentially negative. [facility] have been consulted for CKD IV. Baseline GFR appears to be 20-22, but it has fluctuated and patient is on Torsemide at home. Mr. Raymond denies CP, SOB, nausea, vomiting, or diarrhea. Does admit to recent swelling in bilat lower extremities in the past few weeks. Past Med Surg Social Fam HX - Past Medical History Medical history: arthritis, CHF, COPD, coronary artery disease, diabetes, dialysis, GERD, GI bleed, hyperlipidemia, hypertension, peripheral artery disease, renal disease, valvular heart disease Additional medical history: kidney transplant Psychiatric history: depression - Past Surgical History Surgical History: coronary bypass (CABG), heart valve replacement, transplant, other Additional surgical history: PIG VALVE AORTIC VALVE REPLACEMENT - Social History Smoking Status: Former smoker Smokeless Tobacco Status: No Alcohol use: none Drug use: none - Family History Mother History Unknown: Yes Adopted: No Family Member Ethnicity: Non- Living Status: Hx Family Cardiac Disorders: No Hx Family Respiratory Disorders: No Hx Family Cancer: No Hx Family GI Disorders: Yes (Cholecycstectomy) Hx Family Endocrine Disorder: No Hx Family Neuromuscular Disorders: No Hx Family Neurologic Disorders: No Hx Family HEENT Disorders: No Hx Family Autoimmune Disorders: No Father History Unknown: Yes Living Status: Sister History Unknown: Yes Living Status: Still Living Medications and Allergies Acetaminophen [Tylenol] 325 mg PO Q4HR PRN 12/14/14 [History] Aspirin 81 mg PO DAILY 12/14/14 [History] Saccharomyces Boulardii [Probiotic] 250 mg PO DAILY 12/14/14 [History] Tamsulosin [Flomax] 0.4 mg PO DAILY 12/14/14 [History] Carvedilol [Coreg] 37.5 mg PO BID 11/11/15 [History] Everolimus [Zortress] 0.5 mg PO BID 11/11/15 [History] FLUoxetine HCl [Prozac] 10 mg PO DAILY 11/11/15 [History] Atropine 1% Opth Drops 1 drop LEFT EYE BID 05/29/16 [History] Calcitriol [Rocaltrol] 0.25 mcg PO DAILY 05/29/16 [History] Insulin ASPART [Novolog Flexpen] 100 unit SQ QID PRN 05/29/16 [History] Insulin Glargine [Lantus] 15 - 20 unit SQ DAILY 05/29/16 [History] Budesonide/Formoterol 160/4.5 [Symbicort 160/4.5] 2 puff IH BIDR 11/19/16 [ History] Cholecalciferol (Vitamin D3) [Vitamin D3] 1,000 unit PO DAILY 11/19/16 [History] Umeclidinium [place] [Incruse Ellipta] 62.5 mcg IH DAILY 05/07/17 [History] Albuterol Neb [AccuNeb] 1.25 mg IH Q4HR PRN 10/27/17 [History] Docusate Sodium 100 mg PO BID 10/27/17 [History] Folic Acid 400 mcg PO DAILY 10/27/17 [History] Isosorbide MONOnitrate (24 HR) [Imdur] 30 mg PO DAILY 10/27/17 [History] Pantoprazole Sodium 40 mg PO BID 10/27/17 [History] Vitamin E (Dl,Tocopheryl Acet) [Vitamin E] 400 unit PO BID 10/27/17 [History] hydrALAZINE [HydrALAZINE] 75 mg PO Q8HR 10/27/17 [History] predniSONE [PredniSONE] 5 mg PO DAILY 10/27/17 [History] Calcium Carbonate [Tums] 1,250 mg PO TID tab.chew 11/05/17 [Rx] Epoetin Tee [Procrit] 30,000 unit SQ WE mls 11/05/17 [Rx] Minocycline [Minocin] 100 mg PO Q12HR 20 Days #40 capsule 11/05/17 [Rx] Torsemide [Demadex] 40 mg PO TID #90 tablet 11/05/17 [Rx] Polyethylene Glycol 3350 [MiraLAX Powder Bulk 17.9 Oz] 1 scoop PO DAILY [History] 3 Allergy/AdvReac Type Severity Reaction Status Date / Time levofloxacin [From Levaquin] AdvReac Severe Nausea Verified 11/20/17 08:50 Twqudly-Lni-Xde Reductase AdvReac Weakness Verified 11/20/17 08:50 Inhibitor [Statins] Review of Systems ROS unobtainable: other (as per HPI) Exam - Vital Signs Vital signs: Initial Vital Signs Temp Pulse Resp BP Pulse Ox 98.5 F 88 18 132/52 96 11/19/17 16:35 11/19/17 16:35 11/19/17 16:35 11/19/17 16:35 11/19/17 16:35 Vital Signs - Last 8 Hours Temp Pulse Resp BP Pulse Ox 11/20/17 09:44 16 99 11/20/17 06:57 97.9 F 82 16 151/66 99 11/20/17 06:19 98.1 F 85 18 11/20/17 04:25 98.2 F 87 16 121/51 99 11/20/17 02:33 98.3 F 85 11/20/17 02:18 98.3 F 85 18 Intake and Output 11/19/17 11/20/17 11/20/17 23:59 07:59 15:59 Intake Total 0 / 0 350 / 350 220 / 220 Output Total 0 / 0 500 / 500 Balance 0 / 0 350 / 350 -280 / -280 Intake: Oral 0 / 0 220 / 220 Blood Product 350 / 350 Rbcs Leuko Poor As-1 Unit 350 / 350 [id number] Rbcs Leuko Poor As-1 Unit 0 / 0 [id number] Output: Urine 0 / 0 500 / 500 Other: Meal Breakfast Percent of Meal Consumed 100% Weight 79.549 kg Blood Glucose* 245 280 Patient Weight 11/20/17 23:59 Weight 79.549 kg - General Appearance General appearance: well-developed, well-nourished EENT: ATNC, hearing intact, vision intact Neck: supple Cardiology: edema (+2 pitting edema noted to bilat lower extremities.), normal S1, normal S2 Gastrointestinal: normoactive bowel sounds, no tenderness, no guarding Integumentary: no rash, warm and dry Neurologic: alert and oriented x3 Psychiatric: mood/affect appropriate, cooperative Results - Lab Results 11/20/17 07:55 11/20/17 07:55 Most recent lab results Calcium 9.5 mg/dL (8.6-10.3) 11/20/17 07:55 Consult Discharge Plan - Plan Referrals: Satya Singh MD [Primary Care Provider] -
[2017-11-20] MEDS: Folic Acid 1 MG TABLET PO SCH (10:36)
[2017-11-20] MEDS: FLUoxetine HCl 10 MG CAPSULE PO SCH (10:37)
[2017-11-20] MEDS: predniSONE 5 MG TABLET PO SCH (10:37)
[2017-11-20] MEDS: Sucralfate 1 GM TABLET PO SCH ×4 (10:37→21:16)
[2017-11-20] MEDS: Torsemide 20 MG TABLET PO SCH ×3 (10:37→17:10)
[2017-11-20] MEDS: Lactobacillus 1 EACH CAP.SPRINK PO SCH ×2 (10:37→19:40)
[2017-11-20] MEDS: Aspirin 81 MG TAB.CHEW PO SCH (10:38)
[2017-11-20] MEDS: Isosorbide MONOnitrate (24 HR) 30 MG TAB.ER.24H PO SCH (10:39)
[2017-11-20] MEDS ORDERED: Epoetin Alfa 40,000 UNIT/ML VIAL SQ SCH (12:00)
--- NOTE | 2017-11-20 13:47 | Oncology Inp Consult Note ---
<Karen Nguyen L - Last Filed: 11/20/17 16:18> Date of Encounter: 11/20/17 Time of Encounter: 12:30 Assessment and Plan (1) Anemia Status: Chronic Assessment and plan: Significant anemia noted at office visit in outpatient clinic yesterday with hgb 5.9, patient was asked to present to ER. Anemia workup reveals: Microcytic Anemia MCV 81 Iron 20, Ferritin 141, Iron saturation 8.1% Platelets normal at 213 and neutrophils 4200 B12 479, folate more than 22 and TSH normal at 0.98 LDH normal Rheumatoid factor normal at 11 Lymphocytopenia likely secondary to zortress Celiac disease, serum protein electrophoresis light chains, MARINA--->pending Most recent colonoscopy/capsule endoscopy 10/09 as detailed in HPI without evidence of active bleeding Hgb improved today s/p 2 units PRBC---patient symptomatically improved Plan: Anemia multifactorial---chronic disease, iron deficiency, bone marrow suppression secondary to zortress?, acute vs chronic GI loss-scopes about one month ago did not locate active bleeding CT abdomen/pelvis without contrast- assess spleen, source of bleeding? Pending labs as above Plan to initiate continued periodic iron infusions as outpatient Briefly introduced the idea of bone marrow biopsy if anemia persists following iron correction Continue to monitor Hgb closely, consider GI consultation for acute drop in hgb suggestive of further GI loss Qualifiers: Anemia type: unspecified type Qualified Code(s): D64.9 - Anemia, unspecified (2) S/P kidney transplant Status: Chronic - Data of Consult Requesting Physician: Kaylee Campos MD Primary Care Provider: Satya Singh MD - Consult Narrative Reason for consult: Anemia History of present illness: Mr. Raymond is a 72 year old male with history of long standing anemia. He was evaluated by Dr. Lan November 2014 for anemia She has anemia with hemoglobin 7-9 range. Waxing and waning for few months his hemoglobin improved to 10 range. Medical problem includes living donor (half-brother) renal transplant on 2012 His creatinine reminds high between 2.5 which is his baseline 24 range. Some of this increase could be aggravated by chronic diuretics he is on He is on immunosuppression He also has porcine aortic valve replacement 2012 just prior to renal transplant. 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 But this is less likely because usually anemia resolves after aortic valve replacement. But he does have some paravalvular leak He is von Willebrand factors were normal in 2014 except mildly reduced high multi more forms He had extensive GI workup in the past line more recently at [facility] September 2017 had EGD colonoscopy and capsule endoscopy. According to the patient no injured displaced.. It showed some gastritis otherwise negative We will try to get the [facility] records He also has some hearing loss. Deconditioned on a wheelchair. He claims he has some memory problems as well His was very helpful in giving the history Past Medical History: CAD/ CABG x4 vessels Aortic stenosis, S/P AVR Diabetes mellitus, non-insulin dependent Hypertension Chronic renal failure, S/P renal transplant 2012 Arthritis Alcohol abuse, remote Former smoker C. difficile colitis, remote cardiac dysrhythmia with PVCs/nonsustained V tach 2014/Dr. Carver COPD Surgical History: Colonoscopy, Tubular Adenoma, Gul 10/08/14 EGD, Gul 10/08/14 Renal transplant 08/2012 EGD, Gastritis, Gul 12/2011 Flex Sig, Gul 12/2011 CABG X 4 01/2012 Colonoscopy, NL, Sever 07/2010 AVR (tissue) EGD Dr Trimble x2 10/2015 Valve repair 01/2016 Colonscopy 10/09/2017-prior polypectomy site noted in the ascending colon, clip was placed to red spo noted adjacent to the prior hemoclip site. No active bleeding, large internal hemorrhoids, no specimens collected. Video Capsule Endoscopy- 10/09/2017-No evidence of angioectasias, ulcers, polyps or mass lesions, no evidence for hematin, melena or red blood, capsule reached cecum. Past Med Surg Social Fam HX - Past Medical History Medical history: arthritis, CHF, COPD, coronary artery disease, diabetes, dialysis, GERD, GI bleed, hyperlipidemia, hypertension, peripheral artery disease, renal disease, valvular heart disease Additional medical history: kidney transplant Psychiatric history: depression - Past Surgical History Surgical History: coronary bypass (CABG), heart valve replacement, transplant, other Additional surgical history: PIG VALVE AORTIC VALVE REPLACEMENT - Social History Smoking Status: Former smoker Smokeless Tobacco Status: No Alcohol use: none Drug use: none - Family History Mother History Unknown: Yes Adopted: No Family Member Ethnicity: Non- Living Status: Hx Family Cardiac Disorders: No Hx Family Respiratory Disorders: No Hx Family Cancer: No Hx Family GI Disorders: Yes (Cholecycstectomy) Hx Family Endocrine Disorder: No Hx Family Neuromuscular Disorders: No Hx Family Neurologic Disorders: No Hx Family HEENT Disorders: No Hx Family Autoimmune Disorders: No Father History Unknown: Yes Living Status: Sister History Unknown: Yes Living Status: Still Living Medications and Allergies Acetaminophen [Tylenol] 325 mg PO Q4HR PRN 12/14/14 [History] Aspirin 81 mg PO DAILY 12/14/14 [History] Saccharomyces Boulardii [Probiotic] 250 mg PO DAILY 12/14/14 [History] Tamsulosin [Flomax] 0.4 mg PO DAILY 12/14/14 [History] Carvedilol [Coreg] 37.5 mg PO BID 11/11/15 [History] Everolimus [Zortress] 0.5 mg PO BID 11/11/15 [History] FLUoxetine HCl [Prozac] 10 mg PO DAILY 11/11/15 [History] Atropine 1% Opth Drops 1 drop LEFT EYE BID 05/29/16 [History] Calcitriol [Rocaltrol] 0.25 mcg PO DAILY 05/29/16 [History] Insulin ASPART [Novolog Flexpen] 100 unit SQ QID PRN 05/29/16 [History] Insulin Glargine [Lantus] 15 - 20 unit SQ DAILY 05/29/16 [History] Budesonide/Formoterol 160/4.5 [Symbicort 160/4.5] 2 puff IH BIDR 11/19/16 [ History] Cholecalciferol (Vitamin D3) [Vitamin D3] 1,000 unit PO DAILY 11/19/16 [History] Umeclidinium [place] [Incruse Ellipta] 62.5 mcg IH DAILY 05/07/17 [History] Albuterol Neb [AccuNeb] 1.25 mg IH Q4HR PRN 10/27/17 [History] Docusate Sodium 100 mg PO BID 10/27/17 [History] Folic Acid 400 mcg PO DAILY 10/27/17 [History] Isosorbide MONOnitrate (24 HR) [Imdur] 30 mg PO DAILY 10/27/17 [History] Pantoprazole Sodium 40 mg PO BID 10/27/17 [History] Vitamin E (Dl,Tocopheryl Acet) [Vitamin E] 400 unit PO BID 10/27/17 [History] hydrALAZINE [HydrALAZINE] 75 mg PO Q8HR 10/27/17 [History] predniSONE [PredniSONE] 5 mg PO DAILY 10/27/17 [History] Calcium Carbonate [Tums] 1,250 mg PO TID tab.chew 11/05/17 [Rx] Epoetin Tee [Procrit] 30,000 unit SQ WE mls 11/05/17 [Rx] Minocycline [Minocin] 100 mg PO Q12HR 20 Days #40 capsule 11/05/17 [Rx] Torsemide [Demadex] 40 mg PO TID #90 tablet 11/05/17 [Rx] Polyethylene Glycol 3350 [MiraLAX Powder Bulk 17.9 Oz] 1 scoop PO DAILY [History] 3 Allergy/AdvReac Type Severity Reaction Status Date / Time levofloxacin [From Levaquin] AdvReac Severe Nausea Verified 11/20/17 08:50 Ygbsppa-Ail-Iqu Reductase AdvReac Weakness Verified 11/20/17 08:50 Inhibitor [Statins] Constitutional: Present: anorexia, fatigue, weakness, weight loss. Absent: chills, fever(s), night sweats Eyes: Absent: change in vision Nose, mouth and throat: Absent: dysphagia Cardiovascular: Absent: chest pain, palpitations Respiratory: Present: cough, dyspnea on exertion Gastrointestinal: Present: change in bowel habits. Absent: abdominal pain, hematemesis, hematochezia, melena, nausea, vomiting Additional comments: reports "chronic dark stool" Additional comments: denies dysuria Musculoskeletal: Present: muscle weakness Integumentary: Absent: rash, wounds Neurological: Absent: focal weakness, frequent falls Hematologic/Lymphatic: Present: as per HPI. Absent: easy bleeding, easy bruising, lymphadenopathy Oncology - Exam - Constitutional Vitals: Temp Pulse Resp BP Pulse Ox 97.7 F 77 16 164/72 98 11/20/17 11:26 11/20/17 11:26 11/20/17 11:26 11/20/17 11:26 11/20/17 11:26 General appearance: cooperative, no acute distress, no febrile - Head Head exam: Present: atraumatic - ENT ENT exam: Present: mucous membranes moist - Respiratory Respiratory exam: Present: decreased breath sounds, CTAB. Absent: respiratory distress - Cardiovascular Cardiovascular exam: Present: RRR, +S1, +S2, systolic murmur - GI/Abdominal GI/Abdominal exam: Present: normal bowel sounds, soft. Absent: guarding, rebound, tenderness - Extremities Exam Extremities exam: Present: pedal edema. Absent: calf tenderness Additional comments: 2-3+ pitting BLE edema - Neurological Exam Neurological exam: Present: alert, oriented X3, no focal deficits, strengths equal and symetr throughout - Psychiatric Psychiatric exam: Present: normal affect, normal mood - Skin Skin exam: Present: dry, intact, normal color, warm Oncology - Results Labs: 3 11/20/17 11/20/17 11/19/17 07:55 07:55 23:28 WBC 5.9 RBC 3.00 L Hgb 7.8 L D Hct 25.1 L MCV 83.7 MCH 26.0 L MCHC 31.1 L RDW 17.3 H Plt Count 224 MPV 10.9 Immature Gran % 1.4 Seg Neutrophils % 79.8 Lymphocytes % 7.1 Monocytes % 11.4 Eosinophils % 0.3 Basophils % 0.0 Neutrophils # 4.7 Lymphocytes # 0.4 L Monocytes # 0.7 Eosinophils # 0.0 Basophils # 0.0 Nucleated RBCs/100 WBC 0.3 H Sodium 141 Potassium 3.6 Chloride 99 Carbon Dioxide 29 BUN > 130 H Creatinine 3.43 H Est GFR ( Amer) 22 L Est GFR (Non-Af Amer) 18 L BUN/Creatinine Ratio TNP Glucose 237 H POC Glucose 245 H Calculated Osmolality TNP Calcium 9.5 Consult Discharge Plan - Plan Referrals: Satya Singh MD [Primary Care Provider] - <Shamir Alonzo - Last Filed: 11/21/17 13:21> Date of Encounter: 11/20/17 Time of Encounter: 17:00 - Data of Consult Requesting Physician: Kaylee Campos MD Primary Care Provider: Satya Singh MD - Consult Narrative History of present illness: Mr. Raymond is a 72 year old male Oncology - Exam - Constitutional Vitals: Temp Pulse Resp BP Pulse Ox 98.2 F 78 16 106/67 97 11/21/17 12:08 11/21/17 12:08 11/21/17 12:08 11/21/17 12:08 11/21/17 12:08 Oncology - Results Labs: 3 11/21/17 11/21/17 11/21/17 05:51 05:41 05:41 WBC 6.3 RBC 2.66 L Hgb 7.0 L Hct 22.6 L MCV 85.0 MCH 26.3 L MCHC 31.0 L RDW 17.6 H Plt Count 201 MPV 10.4 Immature Gran % 2.1 Seg Neutrophils % 73.4 Lymphocytes % 8.2 Monocytes % 15.8 Eosinophils % 0.3 Basophils % 0.2 Neutrophils # 4.6 Lymphocytes # 0.5 L Monocytes # 1.0 Eosinophils # 0.0 Basophils # 0.0 Nucleated RBCs/100 WBC Sodium 139 Potassium 3.5 Chloride 98 Carbon Dioxide 31 H BUN > 130 H Creatinine 3.54 H Est GFR ( Amer) 21 L Est GFR (Non-Af Amer) 17 L BUN/Creatinine Ratio TNP Glucose 365 H POC Glucose Calculated Osmolality TNP Calcium 9.1 Iron 19 L % Saturation 8 L Transferrin 178 L Ferritin 126 Vitamin B12 312 Folate 20.5 H 3 11/20/17 11/20/17 11/20/17 20:34 16:42 12:22 WBC RBC Hgb Hct MCV MCH MCHC RDW Plt Count MPV Immature Gran % Seg Neutrophils % Lymphocytes % Monocytes % Eosinophils % Basophils % Neutrophils # Lymphocytes # Monocytes # Eosinophils # Basophils # Nucleated RBCs/100 WBC Sodium Potassium Chloride Carbon Dioxide BUN Creatinine Est GFR ( Amer) Est GFR (Non-Af Amer) BUN/Creatinine Ratio Glucose POC Glucose 302 H 258 H 282 H Calculated Osmolality Calcium Iron % Saturation Transferrin Ferritin Vitamin B12 Folate 3 11/20/17 11/20/17 11/20/17 07:55 07:55 06:35 WBC 5.9 RBC 3.00 L Hgb 7.8 L D Hct 25.1 L MCV 83.7 MCH 26.0 L MCHC 31.1 L RDW 17.3 H Plt Count 224 MPV 10.9 Immature Gran % 1.4 Seg Neutrophils % 79.8 Lymphocytes % 7.1 Monocytes % 11.4 Eosinophils % 0.3 Basophils % 0.0 Neutrophils # 4.7 Lymphocytes # 0.4 L Monocytes # 0.7 Eosinophils # 0.0 Basophils # 0.0 Nucleated RBCs/100 WBC 0.3 H Sodium 141 Potassium 3.6 Chloride 99 Carbon Dioxide 29 BUN > 130 H Creatinine 3.43 H Est GFR ( Amer) 22 L Est GFR (Non-Af Amer) 18 L BUN/Creatinine Ratio TNP Glucose 237 H POC Glucose 280 H Calculated Osmolality TNP Calcium 9.5 Iron % Saturation Transferrin Ferritin Vitamin B12 Folate 3 11/19/17 23:28 WBC RBC Hgb Hct MCV MCH MCHC RDW Plt Count MPV Immature Gran % Seg Neutrophils % Lymphocytes % Monocytes % Eosinophils % Basophils % Neutrophils # Lymphocytes # Monocytes # Eosinophils # Basophils # Nucleated RBCs/100 WBC Sodium Potassium Chloride Carbon Dioxide BUN Creatinine Est GFR ( Amer) Est GFR (Non-Af Amer) BUN/Creatinine Ratio Glucose POC Glucose 245 H Calculated Osmolality Calcium Iron % Saturation Transferrin Ferritin Vitamin B12 Folate - Attending Attestation Chronic anemia which is complex He does have documented iron deficiency. Current iron saturation 8% with ferritin 130. His anemia is multifactorial including chronic kidney disease is playing a role Etiology of iron deficiency not clear and most recent colonoscopy capsule endoscopy negative at [facility] on August 2017 His B12 was normal at 312 which is low normal. Folate normal TSH normal in the past. Other anemia workup pending. LDH normal at 160 invading [place] direct He would benefit from IV iron which may consider as an outpatient Currently hemoglobin is improved to 7.8 after 2 units of packed RBC transfusion Feeling symptomatically better If anemia persists after correcting iron deficiency would consider bone marrow biopsy Inpatient Charges Provider: Dr. Jennifer Alonzo Consult Charges: [id number]
--- NOTE | 2017-11-20 14:55 | Infectious Disease Consult ---
Date of Encounter: 11/20/17 Time of Encounter: 14:48 Assessment and Plan (1) History of bacteremia Status: Chronic Assessment and plan: Causative organism: Elizabegarrettia meningoseptica Diagnosed 10/16/17. Repeat blood cultures 10/17 negative. MDR, sensitive only to Levaquin. Source likely the patient's loculated pleural effusion/empyema. Previously treated by [facility]. Follow-up scheduled for this Saturday. Blood cultures obtained 11/19/17 are pending x 2 sets. Continue Levaquin 500mg IV Q48H. Dosing discussed with Jt Baumann. CrCl ~18. If renal function improves tomorrow, will need to dose-adjust to 750mg IV Q48H. Continue minocycline 100mg PO BID. Duration of treatment depends on the clinical picture. Further recommendations per [facility]. Would recommend the patient keep his appt with [facility] for Saturday if he is discharged or re-schedule appt to next week. (2) Pleural effusion Status: Acute Assessment and plan: Location: Left. CXR showed left lung base infiltrate and moderate left pleural effusion. Based on previous records, this has been a chronic issue and he recently had chest tube at [facility] in September. Cultures at that time were negative, but the gram stain was positive for GNR. Get CT of the chest without contrast to evaluate for re-accumulation of empyema. (3) Anemia Status: Chronic Assessment and plan: Hgb 5.5 on admission. Etiology unclear. Previous EGD/C-scope/Capsule Endoscopy completed in September was negative for bleeding. Hem/Onc consulted. Qualifiers: Anemia type: unspecified type Qualified Code(s): D64.9 - Anemia, unspecified (4) Hx of pleural empyema Status: Acute Assessment and plan: CT of the chest completed 10/18/17 showed a long-standing complex bilateral pleural collections. The large left pleural collection was moderate-sized and had associated complete atelectasis of the left lower lobe. Status post thoracentesis 10/18/17 with approximately 450ml amy-colored fluid removed. Culture negative. Cytology negative for malignancy. Status post chest tube placement 10/21/17, removed 10/24/17. Infiltrate and pleural effusion noted on CXR. Get CT of the chest without contrast to evaluate further. (5) S/P kidney transplant Status: Chronic Assessment and plan: Status post living donor transplant 08/2012 at [facility]. Currently on Zortress and Prednisone. (6) CHF (congestive heart failure) Status: Chronic Qualifiers: Heart failure type: unspecified Heart failure chronicity: chronic Qualified Code(s): I50.9 - Heart failure, unspecified (7) HTN (hypertension) Status: Chronic Qualifiers: Hypertension type: essential hypertension Qualified Code(s): I10 - Essential (primary) hypertension (8) DM (diabetes mellitus) Status: Chronic Qualifiers: Diabetes mellitus type: type 2 Diabetes mellitus fdc insulin use: with terminal system operator use Diabetes mellitus complication status: with kidney complications Diabetes mellitus complication detail: with chronic kidney disease Chronic kidney disease stage: stage 4 (severe) Qualified Code(s): E11.22 - Type 2 diabetes mellitus with diabetic chronic kidney disease; N18.4 - Chronic kidney disease, stage 4 (severe); Z79.4 - correction (current) use of insulin (9) COPD (chronic obstructive pulmonary disease) Status: Chronic Qualifiers: COPD type: emphysema Emphysema type: unspecified Qualified Code(s): J43.9 - Emphysema, unspecified (10) History of aortic valve replacement with bioprosthetic valve Status: Chronic Assessment and plan: Aortic valve replacement with bioprosthetic valve 2011 with repair 2015. Infectious Disease HPI - Data of Consult Patient: new to practice Consult date: 11/20/17 Requesting Physician: Kaylee Campos MD Primary Care Provider: Satya Singh MD - Consult Narrative Reason for consult: Bacteremia, immunosuppression History of present illness: Mr. Raymond is a 72 year old male with a past medical history of CHF, COPD, CAD , type 2 diabetes on insulin, end-stage renal disease status post living donor renal transplant and September 2012 currently on immunosuppressant therapy, GERD, GI bleed, PAD, aortic valve replacement in 2011 with repair in 2016, and chronic anemia. The patient was admitted to the hospital 11/19/17 for anemia. We are consulted 11/20/17 for antibiotic recommendations for bacteremia in the immunocompromised patient. Briefly, the patient is a 72-year-old male with a past medical history as stated above. The patient has somewhat of a complex history. Apparently, he was hospitalized at [facility] from October 07 through October 15 for anemia. He underwent EGD, colonoscopy, and capsule endoscopy that were nonrevealing of any reason he should be having anemia. He was discharged home on October 15 and about 12 hours later he presented to his local emergency department with complaints of shortness of breath and chest pain. He had a chest x-ray that showed a left lower lobe pneumonia and pulmonary edema. He was started on Vanco and Zosyn and transferred to [facility] for further evaluation. While at [facility], he underwent a CT of the chest that showed a large left pleural effusion and possible empyema. He had a chest tube placed. The pleural fluid Gram stain was positive for gram- negative rods, but the culture was negative. His chest tube was removed prior to discharge. Blood cultures that were obtained at his local ER came back positive for Elizabethkingia meningoseptica, sensitive only to Levaquin. Repeat blood cultures obtained 10/17/17 at [facility] were negative. Antibiotics were de- escalated to IV Levaquin and he was started on oral minocycline. He was discharged home to complete a four-week course of antibiotic therapy. Yesterday , the patient was contacted by his dental hygienist mobile coordinator office with advice to come to the emergency department for hemoglobin of 5.9. Upon arrival, the patient was afebrile and hemodynamically stable. His white blood cell count was normal. Hemoglobin was 5.5. Renal function was indicative of his chronic kidney disease. Troponin was mildly elevated at 0.04. Repeat blood cultures were obtained 2 sets are pending. He had a chest x-ray that showed infiltrate in the left lung base and moderate left pleural effusion. He was started on oral minocycline and IV Levaquin. He was admitted to the hospital for further evaluation. Since admission, the patient has remained afebrile and hemodynamically stable. Nephrology has been consulted. Hem/Onc has been consulted to assist with workup of his anemia. We have been asked to evaluate and make further recommendations regarding antibiotic therapy. During my exam today, the patient endorses the history as stated above. He reports generalized fatigue and malaise. He denies fevers, chills, or rigors. Reports chronic shortness of breath secondary to COPD that has been worsening over the past few days. Denies cough, congestion, or URI symptoms. Denies abdominal pain, urinary complaints, or appetite changes. Denies nausea, vomiting , or diarrhea. Denies pain in his back or extremities. Denies oral thrush or new skin rashes. The patient lives at home with his . He is retired. He denies any recent travel. Denies tobacco, alcohol, or illicit drug use. CC: Kaylee Campos MD Past Med Surg Social Fam HX - Past Medical History Attestation: Yes The following information was validated with the patient. Source: patient, old records reviewed, nursing notes reviewed Medical history: arthritis, CHF, COPD, coronary artery disease, diabetes, GERD, GI bleed, hyperlipidemia, hypertension, peripheral artery disease, renal disease , valvular heart disease Additional medical history: kidney transplant 2012 Psychiatric history: depression - Past Surgical History Surgical History: coronary bypass (CABG), heart valve replacement, transplant ( Living-donor renal transplant 08/2017), other Additional surgical history: PIG VALVE AORTIC VALVE REPLACEMENT - Social History Smoking Status: Former smoker Smokeless Tobacco Status: No Alcohol use: none Drug use: none Occupational status: retired Current living situation: Home, With Family Activity Level: Uses cane/walker Recent Out of Country Travel Within the Last 8 Weeks: No Exposure or Possible Exposure to Illness During Travel: No - Family History Mother History Unknown: Yes Adopted: No Family Member Ethnicity: Non- Living Status: Hx Family Cardiac Disorders: No Hx Family Respiratory Disorders: No Hx Family Cancer: No Hx Family GI Disorders: Yes (Cholecycstectomy) Hx Family Endocrine Disorder: No Hx Family Neuromuscular Disorders: No Hx Family Neurologic Disorders: No Hx Family HEENT Disorders: No Hx Family Autoimmune Disorders: No Father History Unknown: Yes Living Status: Sister History Unknown: Yes Living Status: Still Living Infectious Disease-CN:Meds Acetaminophen [Tylenol] 325 mg PO Q4HR PRN 12/14/14 [History] Aspirin 81 mg PO DAILY 12/14/14 [History] Saccharomyces Boulardii [Probiotic] 250 mg PO DAILY 12/14/14 [History] Tamsulosin [Flomax] 0.4 mg PO DAILY 12/14/14 [History] Carvedilol [Coreg] 37.5 mg PO BID 11/11/15 [History] Everolimus [Zortress] 0.5 mg PO BID 11/11/15 [History] FLUoxetine HCl [Prozac] 10 mg PO DAILY 11/11/15 [History] Atropine 1% Opth Drops 1 drop LEFT EYE BID 05/29/16 [History] Calcitriol [Rocaltrol] 0.25 mcg PO DAILY 05/29/16 [History] Insulin ASPART [Novolog Flexpen] 100 unit SQ QID PRN 05/29/16 [History] Insulin Glargine [Lantus] 15 - 20 unit SQ DAILY 05/29/16 [History] Budesonide/Formoterol 160/4.5 [Symbicort 160/4.5] 2 puff IH BIDR 11/19/16 [ History] Cholecalciferol (Vitamin D3) [Vitamin D3] 1,000 unit PO DAILY 11/19/16 [History] Umeclidinium [place] [Incruse Ellipta] 62.5 mcg IH DAILY 05/07/17 [History] Albuterol Neb [AccuNeb] 1.25 mg IH Q4HR PRN 10/27/17 [History] Docusate Sodium 100 mg PO BID 10/27/17 [History] Folic Acid 400 mcg PO DAILY 10/27/17 [History] Isosorbide MONOnitrate (24 HR) [Imdur] 30 mg PO DAILY 10/27/17 [History] Pantoprazole Sodium 40 mg PO BID 10/27/17 [History] Vitamin E (Dl,Tocopheryl Acet) [Vitamin E] 400 unit PO BID 10/27/17 [History] hydrALAZINE [HydrALAZINE] 75 mg PO Q8HR 10/27/17 [History] predniSONE [PredniSONE] 5 mg PO DAILY 10/27/17 [History] Calcium Carbonate [Tums] 1,250 mg PO TID tab.chew 11/05/17 [Rx] Epoetin Tee [Procrit] 30,000 unit SQ WE mls 11/05/17 [Rx] Minocycline [Minocin] 100 mg PO Q12HR 20 Days #40 capsule 11/05/17 [Rx] Torsemide [Demadex] 40 mg PO TID #90 tablet 11/05/17 [Rx] Polyethylene Glycol 3350 [MiraLAX Powder Bulk 17.9 Oz] 1 scoop PO DAILY [History] 3 Allergy/AdvReac Type Severity Reaction Status Date / Time levofloxacin [From Levaquin] AdvReac Severe Nausea Verified 11/20/17 08:50 Ctfcnzl-Yfh-Njt Reductase AdvReac Weakness Verified 11/20/17 08:50 Inhibitor [Statins] All systems: reviewed and no additional remarkable complaints except as stated Exam - Constitutional Vitals: Temp Pulse Resp BP Pulse Ox 97.7 F 77 16 164/72 98 11/20/17 11:26 11/20/17 11:26 11/20/17 11:26 11/20/17 11:26 11/20/17 11:26 General appearance: average body habitus, cooperative, no acute distress - Head Head exam: Present: atraumatic, normal inspection, normocephalic - Eye Eye exam: Present: EOMI, normal appearance, PERRL Pupils: Present: normal accommodation - ENT ENT exam: Present: mucous membranes moist - Neck Neck exam: Present: normal inspection - Respiratory Respiratory exam: Present: CTAB. Absent: rales, respiratory distress, rhonchi, wheezes - Cardiovascular Cardiovascular exam: Present: RRR, +S1, +S2 - GI/Abdominal GI/Abdominal exam: Present: normal bowel sounds, soft. Absent: distended, tenderness - Extremities Exam Extremities exam: Present: normal inspection, pedal edema (Trace BLE). Absent: joint swelling, tenderness - Neurological Exam Neurological exam: Present: alert, oriented X3, no focal deficits - Psychiatric Psychiatric exam: Present: normal affect, normal mood - Skin Skin exam: Present: dry, intact, normal color, warm - Additional findings Additional findings: PICC line noted to the LUE with transparent dressing C/D/I. Infectious Disease CN: Results - Labs CBC & Chem 7: 11/20/17 07:55 11/20/17 07:55 Consult Discharge Plan - Plan Referrals: Satya Singh MD [Primary Care Provider] - - Attending Attestation I examined this patient and my medical decision-making was reviewed with Drea Casanova CNP. I agree with the documented findings, disposition and treatment plan as described except to the extent set forth below. This is an addendum to original report dictated by Drea Casanova CNP. Please refer to Drea's note for full detail. Patient is 72-year-old gentleman with history of chronic kidney disease status post renal transplant in 2013 unknowns CMV donor/recipient status. Patient denies any history of complication post transplant no txlox-[id number]-ntcf disease or any autoimmune disease or any infections. Patient also had a heart valve replacement about 5 years ago her done by Dr. Olivas. Patient is not getting in the dialysis. Patient apparently recently had an empyema and no costal organism was isolated and also had a bacteremia with Elizabethkingia meningoseptica patient was discharged to be treated with IV levofloxacin and IV minocycline. There is no mention of the duration of treatment in the [facility] notes by the patient states that they said one month. Patient is here today for severe anemia. Repeat cultures were obtained. We will resume all the antibiotics he was on and we will dose adjust for creatinine clearance. Will notify [facility] to see if they have any further recommendations. If cultures remain negative we will sign off. Monitor labs and for drug toxicity.
--- NOTE | 2017-11-20 16:49 | Electrocardiograph Report ---
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
[2017-11-21] MEDS: Pantoprazole 40 MG VIAL IVP SCH ×2 (05:28→17:51)
[2017-11-21] MEDS ORDERED: Insulin DETEMIR 100 UNIT/ML X5UNITS SQ SCH ×2 (06:00→21:00)
[2017-11-21 06:09] LABS: Basophils % 0.2 %; Eosinophils % 0.3 %; Hematocrit 22.6 % (37.5-50.1); Immature Granulocytes % 2.1 % (0-4); Lymphocytes # 0.5 K/mcL (0.6-4.6); Lymphocytes % 8.2 %; Mean Corpuscular Hemoglobin 26.3 pg (28.0-33.3); Mean Platelet Volume 10.4 fL (9.4-12.4); Monocytes % 15.8 %; Neutrophils # 4.6 K/mcL (1.6-8.9); Platelet Count 201 K/mcL (140-400); Red Blood Count 2.66 M/mcL (4.19-5.50); Red Cell Distribution Width 17.6 % (11.5-14.5); Segmented Neutrophils % 73.4 %
[2017-11-21 06:34] LABS: % Iron Saturation 8 % (20-55); Blood Urea Nitrogen > 130 mg/dL (8-23); Calcium 9.1 mg/dL (8.6-10.3); Carbon Dioxide 31 mEq/L (23-29); Chloride 98 mEq/L (98-107); Glucose 365 mg/dL (70-105); Iron 19 mcg/dL (65-175); Potassium 3.5 mEq/L (3.5-5.1); Sodium 139 mEq/L (136-145); Transferrin 178 mg/dL (203-362); eGFR For Non-African Americans 17 (> 60)
[2017-11-21 06:54] LABS: Folate 20.5 ng/mL (3.0-16.0)
[2017-11-21 07:11] LABS: Ferritin 126 ng/mL (20-250)
[2017-11-21] MEDS: Sucralfate 1 GM TABLET PO SCH ×3 (08:04→16:20)
[2017-11-21] MEDS: Aspirin 81 MG TAB.CHEW PO SCH (08:04)
[2017-11-21] MEDS: hydrALAZINE 25 MG TABLET PO SCH ×2 (08:04→14:39)
[2017-11-21] MEDS: Lactobacillus 1 EACH CAP.SPRINK PO SCH (08:05)
[2017-11-21] MEDS: Isosorbide MONOnitrate (24 HR) 30 MG TAB.ER.24H PO SCH (08:05)
[2017-11-21] MEDS: Folic Acid 1 MG TABLET PO SCH (08:06)
[2017-11-21] MEDS: FLUoxetine HCl 10 MG CAPSULE PO SCH (08:06)
[2017-11-21] MEDS: predniSONE 5 MG TABLET PO SCH (08:06)
[2017-11-21] MEDS: Atropine 1% Opth Drops 100 DROP/5 ML BOTTLE OP SCH (08:11)
[2017-11-21] MEDS: Insulin LISPRO 300 UNITS/3 ML VIAL SQ SCH ×3 (08:19→16:58)
[2017-11-21] MEDS: Everolimus [Zortress] 0.5 MG PO SCH (08:19)
[2017-11-21] MEDS: Torsemide 20 MG TABLET PO SCH ×3 (08:37→16:21)
[2017-11-21] MEDS ORDERED: Everolimus [Zortress] 0.5 MG PO SCH ×2 (09:00→18:00)
--- NOTE | 2017-11-21 09:15 | Nephrology Progress Note ---
Date of Encounter: 11/21/17 Time of Encounter: 09:13 - Assessment and Plan (1) CKD (chronic kidney disease) stage 4, GFR 15-29 ml/min Current Visit: Yes Status: Chronic Pt agrees to be transferred to [facility] and recommendation has been made to Dr. Campos with the primary team. S/p transplant in 2012. Is on immuno therapy. He is seen by Dr. Howard (transplant grind operator) twice a year and Dr. Herrera twice a year. Avoid nephrotoxins and renal dose all medications. 2000 cc fluid restriction. Renal diet. Baseline Scr is 2.5 is 3.54 today. (2) Anemia Current Visit: Yes Status: Chronic 2 units PRBC transfused finishing on 11/20/17. Hematology recommendations appreciated. He does want his IV iron ordered that he typically gets outpatient, will discuss with Dr. Pan and order if appropriate. Qualifiers: Anemia type: unspecified type Qualified Code(s): D64.9 - Anemia, unspecified (3) S/P kidney transplant Current Visit: Yes Status: Chronic see above. Subjective Principal diagnosis: Low Hgb Interval history: Pt seen and examined, doing well. Discussed the option of transferring to [facility] for continuity of care with kidney transplant. He is not convinced he should go , and would like to think about it. Objective - Vital Signs Vital signs: Vital Signs Temp Pulse Resp BP Pulse Ox 11/21/17 07:13 97.6 F 77 16 157/64 99 11/21/17 03:35 97.7 F 77 18 104/66 99 11/20/17 22:38 97.9 F 90 18 149/54 98 11/20/17 20:28 18 99 11/20/17 18:46 98.7 F 90 18 128/80 97 11/20/17 16:37 97.9 F 85 16 114/61 98 11/20/17 11:26 97.7 F 77 16 164/72 98 11/20/17 09:44 16 99 Intake and Output 11/20/17 11/21/17 11/21/17 23:59 07:59 15:59 Intake Total 500 / 500 250 / 250 Output Total 1250 / 1250 900 / 900 Balance -750 / -750 -650 / -650 Intake: Oral 500 / 500 250 / 250 Output: Urine 1250 / 1250 900 / 900 Other: Meal Dinner Percent of Meal Consumed 100% # Voids 2 Weight 80.18 kg Blood Glucose* 302 338 Patient Weight 11/21/17 23:59 Weight 80.18 kg - General Appearance General appearance: Present: well-developed, well-nourished EENT: Present: ATNC, hearing intact, vision intact Neck: Present: supple Respiratory: Present: clear Cardiology: Present: edema (+2 pitting edema noted. ), normal S1, normal S2 Gastrointestinal: Present: normoactive bowel sounds, no tenderness, no guarding Integumentary: Present: no rash, warm and dry Neurologic: Present: alert and oriented x3 Psychiatric: Present: mood/affect appropriate, cooperative - Lab 11/20/17 07:55 11/21/17 05:51 Most recent lab results Calcium 9.1 mg/dL (8.6-10.3) 11/21/17 05:51 Consult Discharge Plan - Plan Referrals: Satya Signh MD [Primary Care Provider] -
[2017-11-21] MEDS: Tiotropium 18 MCG inhalation IH SCH (10:56)
[2017-11-21] MEDS: Budesonide/Formoterol 160/4.5 1 PUFF INH IH SCH (10:56)
--- NOTE | 2017-11-21 10:57 | Infectious Disease Progress No ---
Date of Encounter: 11/21/17 Time of Encounter: 09:45 - Assessment and Plan (1) History of bacteremia Current Visit: Yes Status: Chronic Causative organism: Elizabethkingia meningoseptica Diagnosed 10/16/17. Repeat blood cultures 10/17 negative. MDR, sensitive only to Levaquin. Source likely the patient's loculated pleural effusion/empyema. Previously treated by [facility]. Follow-up scheduled for this Saturday. Blood cultures obtained 11/19/17 are pending x 2 sets. Continue Levaquin 500mg IV Q48H. Dosing discussed with Jt Baumann. CrCl ~18. Renal function is a little worse todasy, so will keep at 500mg IV Q48H. Continue minocycline 100mg PO BID. Duration of treatment depends on the clinical picture. Further recommendations per [facility]. Would recommend the patient keep his appt with [facility] for Saturday if he is discharged or re-schedule appt to next week. (2) Pleural effusion Current Visit: Yes Status: Acute Location: Left. CXR showed left lung base infiltrate and moderate left pleural effusion. Based on previous records, this has been a chronic issue and he recently had chest tube at [facility] in September. Cultures at that time were negative, but the gram stain was positive for GNR. CT of the chest showed a small to moderate, partically loculated pleural effusion. Recommend pulmnary to evaluate. (3) Anemia Current Visit: Yes Status: Chronic Hgb 5.5 on admission. Etiology unclear. Previous EGD/C-scope/Capsule Endoscopy completed in September was negative for bleeding. CT abdomen and pelvis negative. Improved to 7 today. Hem/Onc consulted. Qualifiers: Anemia type: unspecified type Qualified Code(s): D64.9 - Anemia, unspecified (4) Hx of pleural empyema Current Visit: Yes Status: Acute CT of the chest completed 10/18/17 showed a long-standing complex bilateral pleural collections. The large left pleural collection was moderate-sized and had associated complete atelectasis of the left lower lobe. Status post thoracentesis 10/18/17 with approximately 450ml amy-colored fluid removed. Culture negative. Cytology negative for malignancy. Status post chest tube placement 10/21/17, removed 10/24/17. Infiltrate and pleural effusion noted on CXR. CT of the chest without contrast 11/20/17 showed a small to moderate left pleural effusion, mildly loculated. Recommend pulmonary to evaluate. (5) S/P kidney transplant Current Visit: Yes Status: Chronic Status post living donor transplant 08/2012 at [facility]. Currently on Zortress and Prednisone. (6) CHF (congestive heart failure) Current Visit: No Status: Chronic Qualifiers: Heart failure type: unspecified Heart failure chronicity: chronic Qualified Code(s): I50.9 - Heart failure, unspecified (7) HTN (hypertension) Current Visit: Yes Status: Chronic Qualifiers: Hypertension type: essential hypertension Qualified Code(s): I10 - Essential (primary) hypertension (8) DM (diabetes mellitus) Current Visit: Yes Status: Chronic Qualifiers: Diabetes mellitus type: type 2 Diabetes mellitus mcfp insulin use: with termite helper use Diabetes mellitus complication status: with kidney complications Diabetes mellitus complication detail: with chronic kidney disease Chronic kidney disease stage: stage 4 (severe) Qualified Code(s): E11.22 - Type 2 diabetes mellitus with diabetic chronic kidney disease; N18.4 - Chronic kidney disease, stage 4 (severe); Z79.4 - group home (current) use of insulin (9) COPD (chronic obstructive pulmonary disease) Current Visit: No Status: Chronic Qualifiers: COPD type: emphysema Emphysema type: unspecified Qualified Code(s): J43.9 - Emphysema, unspecified (10) History of aortic valve replacement with bioprosthetic valve Current Visit: Yes Status: Chronic Aortic valve replacement with bioprosthetic valve 2011 with repair 2015. (11) Acute kidney injury superimposed on CKD Current Visit: Yes Status: Acute Serum creatinine up to 3.54 this morning. Nephrology consulted and following. Dose-adjust antibiotics. Avoid nephrotoxins. - Subjective Interval history: Patient seen and examined. No acute events noted overnight. Patient resting quietly in bed. Awakens easily. Reports chronic shortness of breath is at baseline. Denies fevers, chills, or rigors. Denies URI symptoms. Denies chest pain or cough. Denies nausea, vomiting, diarrhea, or constipation. Reports his last bowel movement was this morning. Denies urinary complaints. Denies back or extremity pain. Denies oral thrush or new skin lesions. Infect Dis PN-Objective Data - Labs CBC & Chem 7: 11/20/17 07:55 11/21/17 05:51 Labs: Laboratory Results - last 24 hr 11/20/17 11/20/17 11/20/17 06:35 12:22 16:42 WBC RBC Hgb Hct MCV MCH MCHC RDW Plt Count MPV Immature Gran % Seg Neutrophils % Lymphocytes % Monocytes % Eosinophils % Basophils % Neutrophils # Lymphocytes # Monocytes # Eosinophils # Basophils # Sodium Potassium Chloride Carbon Dioxide BUN Creatinine Est GFR ( Amer) Est GFR (Non-Af Amer) BUN/Creatinine Ratio Glucose POC Glucose 280 H 282 H 258 H Calculated Osmolality Calcium Iron % Saturation Transferrin Ferritin Vitamin B12 Folate 11/20/17 11/21/17 11/21/17 20:34 05:41 05:41 WBC 6.3 RBC 2.66 L Hgb 7.0 L Hct 22.6 L MCV 85.0 MCH 26.3 L MCHC 31.0 L RDW 17.6 H Plt Count 201 MPV 10.4 Immature Gran % 2.1 Seg Neutrophils % 73.4 Lymphocytes % 8.2 Monocytes % 15.8 Eosinophils % 0.3 Basophils % 0.2 Neutrophils # 4.6 Lymphocytes # 0.5 L Monocytes # 1.0 Eosinophils # 0.0 Basophils # 0.0 Sodium Potassium Chloride Carbon Dioxide BUN Creatinine Est GFR ( Amer) Est GFR (Non-Af Amer) BUN/Creatinine Ratio Glucose POC Glucose 302 H Calculated Osmolality Calcium Iron % Saturation Transferrin Ferritin Vitamin B12 312 Folate 20.5 H 11/21/17 05:51 WBC RBC Hgb Hct MCV MCH MCHC RDW Plt Count MPV Immature Gran % Seg Neutrophils % Lymphocytes % Monocytes % Eosinophils % Basophils % Neutrophils # Lymphocytes # Monocytes # Eosinophils # Basophils # Sodium 139 Potassium 3.5 Chloride 98 Carbon Dioxide 31 H BUN > 130 H Creatinine 3.54 H Est GFR ( Amer) 21 L Est GFR (Non-Af Amer) 17 L BUN/Creatinine Ratio TNP Glucose 365 H POC Glucose Calculated Osmolality TNP Calcium 9.1 Iron 19 L % Saturation 8 L Transferrin 178 L Ferritin 126 Vitamin B12 Folate Cultures: Cultures 11/19/17 19:58 Blood Culture - Preliminary Peripheral Venipuncture Culture is incubating and being continuously monitored for growth. Final report to follow. 11/19/17 20:04 Blood Culture - Preliminary Peripheral Venipuncture Culture is incubating and being continuously monitored for growth. Final report to follow. - Impressions Impressions Chest CT 11/20/17 15:20 IMPRESSION: 1. Mildly loculated small to moderate left pleural effusion with masslike areas of consolidation at the left base, most likely chronic rounded atelectasis. 2. Sequelae of granulomatous disease in the chest. 3. Minimal ill-defined tree-in-bud nodularity in the upper lungs, suggesting bronchiolitis. 4. Unremarkable unenhanced CT appearance of the spleen. No evidence of splenomegaly. 5. [place] renal atrophy with right pelvic renal transplant noted. 5. Extensive atherosclerosis. D/ / 11/20/2017 18:02:55 Maribel arshad Interpreting Provider: Maribel Jaeger Abdomen/Pelvis CT 11/20/17 15:45 IMPRESSION: 1. Mildly loculated small to moderate left pleural effusion with masslike areas of consolidation at the left base, most likely chronic rounded atelectasis. 2. Sequelae of granulomatous disease in the chest. 3. Minimal ill-defined tree-in-bud nodularity in the upper lungs, suggesting bronchiolitis. 4. Unremarkable unenhanced CT appearance of the spleen. No evidence of splenomegaly. 5. [place] renal atrophy with right pelvic renal transplant noted. 5. Extensive atherosclerosis. D/ / 11/20/2017 18:02:55 Maribel arshad Interpreting Provider: Maribel Jaeger Exam - Constitutional Vitals: Temp Pulse Resp BP Pulse Ox 97.6 F 77 16 157/64 99 11/21/17 07:13 11/21/17 07:13 11/21/17 07:13 11/21/17 07:13 11/21/17 07:13 General appearance: average body habitus, cooperative, no acute distress - Head Head exam: Present: atraumatic, normal inspection, normocephalic - Eye Eye exam: Present: EOMI, normal appearance, PERRL Pupils: Present: normal accommodation - ENT ENT exam: Present: mucous membranes moist - Neck Neck exam: Present: normal inspection - Respiratory Respiratory exam: Present: decreased breath sounds (Left base), CTAB. Absent: rales, respiratory distress, rhonchi, wheezes - Cardiovascular Cardiovascular exam: Present: RRR, +S1, +S2 - GI/Abdominal GI/Abdominal exam: Present: normal bowel sounds, soft. Absent: distended, tenderness - Extremities Exam Extremities exam: Present: pedal edema (1+ BLE). Absent: joint swelling, tenderness - Neurological Exam Neurological exam: Present: alert, oriented X3, no focal deficits - Psychiatric Psychiatric exam: Present: normal affect, normal mood - Skin Skin exam: Present: dry, intact, normal color, warm Consult Discharge Plan - Plan Referrals: Satya Singh MD [Primary Care Provider] -
--- NOTE | 2017-11-21 13:20 | Internal Med Progress Note ---
Hospitalist Progress Note - Encounter Date of Encounter: 11/21/17 Time of Encounter: 11:45 - Subjective Interval History: Patient seen and examined this morning. Denies any new complaint. Denies fevers chills nausea vomiting diarrhea chest pain or abdominal pain. Denies any blood in stool - Exam Vitals: Temp Pulse Resp BP Pulse Ox 98.2 F 78 16 106/67 97 11/21/17 12:08 11/21/17 12:08 11/21/17 12:08 11/21/17 12:08 11/21/17 12:08 Exam: Gen.: Vitals noted. No acute distress. AAOx3 HEENT: PERRL/EOMI, oropharynx clear, Normocephalic, atraumatic, MMM. Pale conjunctiva Cardiac: RRR, systolic murmur, +S1/S2 Pulmonary: CTA bilaterally, no wheezes, rales or rhonchi, equal chest expansion. Decreased lung sounds at bases Abdomen: soft, nontender, BS noted, no guarding Extremities: 3+ BLE edema, nontender calf, no cyanosis or clubbing Neuro: A&Ox3, moves all extremities, no focal deficits Psych: Appropriate mood and behavior Skin: multiple bruises. - Assessment and Plan (1) Anemia Current Visit: Yes Status: Chronic Assessment and Plan: - Acute on chronic anemia of unclear etiology - Likely element of iron deficiency anemia in combination with chronic kidney disease. - Possibly exacerbated with questionable GI bleed. - Consultation with hematology earlier this afternoon and once suspect as above and were also working up a hemolysis and celiac disease - H/H of 5.5/18.0, baseline hemoglobin appears to be around 6-7. - Per patient's family, he has required transfusions approximately every 3 months but has been more recently lately. He reportedly did have a transfusion approximately 4 days ago at [facility]. - He had an recent GI workup at [facility] including EGD/colonoscopy/Endoscopy Which Was Negative for Bleed per Family. - Patient does admit to dark stools but is otherwise asymptomatic Plan - Hematology consult, appreciate recommendations - We will attempt to obtain records from [facility] and [facility]. We will hold off consulting GI at this time - s/p 2 units of PRBCs. appropriate response. - Protonix 40 mg twice a day, Carafate - Hb slightly lower than yesterday. No ry blood in stool. - Iron study suggesting iron deficiency. - GI consulted, who agrees patient would benefit from transfer to tertiary [facility] as he had previously worked up there Currently arrangements made to transfer the patient to [facility] for further care (2) CKD (chronic kidney disease) stage 4, GFR 15-29 ml/min Current Visit: Yes Status: Chronic Assessment and Plan: - BUNs/creatinine of greater than 130/3.60 - Known history of stage IV CKD - Baseline creatinine appears to be at high twos however has been increasing recently per most recent documentation. Possibly secondary to increased diuretic use. - BUNs and also possibly increased secondary to upper GI bleed as above - Status post renal transplant in early 2012. On immunotherapy - nephrology Consulted. appreciate recommendations - Avoid nephrotoxic agents, renally dose medications (3) S/P kidney transplant Current Visit: Yes Status: Chronic Assessment and Plan: As above for CKD Continue home immunosuppressant medications. Nephrology rec appreciated (4) CAD (coronary artery disease) of artery bypass graft Current Visit: Yes Status: Chronic Assessment and Plan: No complaints of chest pain, continue home medications (5) HTN (hypertension) Current Visit: Yes Status: Chronic Assessment and Plan: Well-controlled. Will continue home medications (6) DM (diabetes mellitus) Current Visit: Yes Status: Chronic Assessment and Plan: - Not Well-controlled - On sliding scale and Levemir, ADA diet. Will increase Levemir to 15 units BID. 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 blood cultures NGTD. - ID recommendations appreciated - Records requested from [facility]. Reportedly diagnosed 4 weeks ago. Possible source per patient's family is PNA. - Patient is asymptomatic at this time. - CXR with left lung infiltrate with Mod lt pleural effusion. (10) DVT prophylaxis Current Visit: Yes Status: Acute Assessment and Plan: - Holding chemical DVT prophylaxis in the setting of anemia Scds - Time Spent with Patient Total time spent is greater than 50% in coordination of care (as documented) at patient's floor/unit and/or counseling patient: Greater than 35 minutes Internal Medicine: Result - Labs CBC & Chem 7: 11/21/17 13:57 11/21/17 13:57 Labs: Short CBC 11/21/17 Range/Units 05:41 WBC 6.3 (4.3-11.1) K/mcL Hgb 7.0 L (12.9-16.9) g/dL Hct 22.6 L (37.5-50.1) % Plt Count 201 (140-400) K/mcL Neutrophils # 4.6 (1.6-8.9) K/mcL BMP 11/21/17 05:51 Sodium 139 Potassium 3.5 Chloride 98 Carbon Dioxide 31 H BUN > 130 H Creatinine 3.54 H Glucose 365 H Calcium 9.1 - Impressions Impressions Chest CT 11/20/17 15:20 IMPRESSION: 1. Mildly loculated small to moderate left pleural effusion with masslike areas of consolidation at the left base, most likely chronic rounded atelectasis. 2. Sequelae of granulomatous disease in the chest. 3. Minimal ill-defined tree-in-bud nodularity in the upper lungs, suggesting bronchiolitis. 4. Unremarkable unenhanced CT appearance of the spleen. No evidence of splenomegaly. 5. [place] renal atrophy with right pelvic renal transplant noted. 5. Extensive atherosclerosis. D/ / 11/20/2017 18:02:55 Maribel Jaeger / pavithra Interpreting Provider: Maribel Jaeger Abdomen/Pelvis CT 11/20/17 15:45 IMPRESSION: 1. Mildly loculated small to moderate left pleural effusion with masslike areas of consolidation at the left base, most likely chronic rounded atelectasis. 2. Sequelae of granulomatous disease in the chest. 3. Minimal ill-defined tree-in-bud nodularity in the upper lungs, suggesting bronchiolitis. 4. Unremarkable unenhanced CT appearance of the spleen. No evidence of splenomegaly. 5. [place] renal atrophy with right pelvic renal transplant noted. 5. Extensive atherosclerosis. D/ / 11/20/2017 18:02:55 Maribel Jaeger / pavithra Interpreting Provider: Maribel Jaeger Consult Discharge Plan - Plan Referrals: Satya Singh MD [Primary Care Provider] - (1) Anemia Qualifiers: Anemia type: unspecified type Qualified Code(s): D64.9 - Anemia, unspecified (4) CAD (coronary artery disease) of artery bypass graft Qualifiers: [place] vs. transplanted heart: [place] heart Associated angina: without angina Qualified Code(s): I25.810 - Atherosclerosis of coronary artery bypass graft(s) without angina pectoris (5) HTN (hypertension) Qualifiers: Hypertension type: essential hypertension Qualified Code(s): I10 - Essential (primary) hypertension (6) DM (diabetes mellitus) Qualifiers: Diabetes mellitus type: type 2 Diabetes mellitus fpc insulin use: with superintendent container terminal use Diabetes mellitus complication status: with kidney complications Diabetes mellitus complication detail: with chronic kidney disease Chronic kidney disease stage: stage 4 (severe) Qualified Code(s): E11.22 - Type 2 diabetes mellitus with diabetic chronic kidney disease; N18.4 - Chronic kidney disease, stage 4 (severe); Z79.4 - intermediate frame tender (current) use of insulin
[2017-11-21] MEDS ORDERED: Iron Sucrose Complex 200 MG in 0.9 % Sodium Chloride 100 ML IVPB SCH (14:00)
[2017-11-21 14:30] LABS: Hematocrit 22.9 % (37.5-50.1); Hemoglobin 6.8 g/dL (12.9-16.9); Mean Corpuscular HGB Conc 29.7 g/dL (31.6-35.5); Mean Corpuscular Hemoglobin 25.6 pg (28.0-33.3); Mean Corpuscular Volume 86.1 fL (83.0-100.0); Mean Platelet Volume 10.7 fL (9.4-12.4); Platelet Count 214 K/mcL (140-400); Red Blood Count 2.66 M/mcL (4.19-5.50); Red Cell Distribution Width 18.1 % (11.5-14.5)
[2017-11-21 14:59] LABS: Alanine Aminotransferase 6 Units/L (7-52); Albumin/Globulin Ratio 1.1 (1.1-2.2); Alkaline Phosphatase 131 Units/L (34-104); Aspartate Amino Transferase 10 Units/L (13-39); Bilirubin,Total 0.4 mg/dL (0.3-1.0); Blood Urea Nitrogen > 130 mg/dL (8-23); Calcium 9.2 mg/dL (8.6-10.3); Carbon Dioxide 33 mEq/L (23-29); Chloride 101 mEq/L (98-107); Globulin 2.8 g/dL (2.4-3.5); Glucose 191 mg/dL (70-105); Potassium 3.8 mEq/L (3.5-5.1); Sodium 142 mEq/L (136-145); Total Protein 5.8 g/dL (6.4-8.9); eGFR For Non-African Americans 17 (> 60)
[2017-11-21] MEDS ORDERED: Levofloxacin 500 MG/100 ML 500 MG/100 ML BAG IVPB SCH (18:00)
--- NOTE | 2017-11-21 20:48 | Discharge Summary ---
- NOTES TO OUTPATIENT PROVIDER Notes to Outpatient Provider: Follow further workup from [facility] where patient is being transferred. Date of Encounter: 11/22/17 Time of Encounter: 17:20 - Discharge Diagnosis (1) Anemia Priority: Primary Status: Chronic Qualifiers: Anemia type: unspecified type Qualified Code(s): D64.9 - Anemia, unspecified (2) CKD (chronic kidney disease) stage 4, GFR 15-29 ml/min Priority: Secondary Status: Chronic (3) S/P kidney transplant Priority: Secondary Status: Chronic (4) CAD (coronary artery disease) of artery bypass graft Priority: Secondary Status: Chronic Qualifiers: [place] vs. transplanted heart: [place] heart Associated angina: without angina Qualified Code(s): I25.810 - Atherosclerosis of coronary artery bypass graft(s) without angina pectoris (5) HTN (hypertension) Priority: Secondary Status: Chronic Qualifiers: Hypertension type: essential hypertension Qualified Code(s): I10 - Essential (primary) hypertension (6) DM (diabetes mellitus) Priority: Secondary Status: Chronic Qualifiers: Diabetes mellitus type: type 2 Diabetes mellitus halfway insulin use: with termite inspector use Diabetes mellitus complication status: with kidney complications Diabetes mellitus complication detail: with chronic kidney disease Chronic kidney disease stage: stage 4 (severe) Qualified Code(s): E11.22 - Type 2 diabetes mellitus with diabetic chronic kidney disease; N18.4 - Chronic kidney disease, stage 4 (severe); Z79.4 - retirement (current) use of insulin (7) History of aortic valve replacement with bioprosthetic valve Priority: Secondary Status: Chronic (8) Elevated troponin Priority: Secondary Status: Acute (9) History of bacteremia Priority: Secondary Status: Chronic (10) DVT prophylaxis Priority: Secondary Status: Acute Hospital course: Mr. Raymond is a 72 year old male with extensive history including CKD s/p renal transplant, CAD s/p CABG, AVR, DM, HTN, COPD was send by team assembler due to anemia and was found to have Hb of 5.5. He as being under workup for it at [facility] and had EGD/colonoscopy/capsule endoscopy which were unconclusive. He was being worked up for other diagnosis including celiac disease and hemolysis. He received 2 unit of PRBC with good response. No apparent source were identified. He also had h/o bacteremia from Elizabethkingia meningoseptica and was on IV antibiotics. He is on immunosuppresion. Nephro, ID and Hemonc were consulted. Given his need for specialized care likely only available at tertiary centers and his previous established care at [facility] patient agreed to be transferred to [facility]. - Time Spent with Patient Total time spent providing and/or coordinating discharge services: Greater than 30 minutes - Discharge Medications Home Medications: Acetaminophen [Tylenol] 325 mg PO Q4HR PRN 12/14/14 [History] Aspirin 81 mg PO DAILY 12/14/14 [History] Saccharomyces Boulardii [Probiotic] 250 mg PO DAILY 12/14/14 [History] Tamsulosin [Flomax] 0.4 mg PO DAILY 12/14/14 [History] Carvedilol [Coreg] 37.5 mg PO BID 11/11/15 [History] Everolimus [Zortress] 0.5 mg PO BID 11/11/15 [History] FLUoxetine HCl [Prozac] 10 mg PO DAILY 11/11/15 [History] Atropine 1% Opth Drops 1 drop LEFT EYE BID 05/29/16 [History] Calcitriol [Rocaltrol] 0.25 mcg PO DAILY 05/29/16 [History] Insulin ASPART [Novolog Flexpen] 100 unit SQ QID PRN 05/29/16 [History] Insulin Glargine [Lantus] 15 - 20 unit SQ DAILY 05/29/16 [History] Budesonide/Formoterol 160/4.5 [Symbicort 160/4.5] 2 puff IH BIDR 11/19/16 [ History] Cholecalciferol (Vitamin D3) [Vitamin D3] 1,000 unit PO DAILY 11/19/16 [History] Umeclidinium Stevenson [Incruse Ellipta] 62.5 mcg IH DAILY 05/07/17 [History] Albuterol Neb [AccuNeb] 1.25 mg IH Q4HR PRN 10/27/17 [History] Docusate Sodium 100 mg PO BID 10/27/17 [History] Folic Acid 400 mcg PO DAILY 10/27/17 [History] Isosorbide MONOnitrate (24 HR) [Imdur] 30 mg PO DAILY 10/27/17 [History] Pantoprazole Sodium 40 mg PO BID 10/27/17 [History] Vitamin E (Dl,Tocopheryl Acet) [Vitamin E] 400 unit PO BID 10/27/17 [History] hydrALAZINE [HydrALAZINE] 75 mg PO Q8HR 10/27/17 [History] predniSONE [PredniSONE] 5 mg PO DAILY 10/27/17 [History] Calcium Carbonate [Tums] 1,250 mg PO TID tab.chew 11/05/17 [Rx] Epoetin Tee [Procrit] 30,000 unit SQ WE mls 11/05/17 [Rx] Minocycline [Minocin] 100 mg PO Q12HR 20 Days #40 capsule 11/05/17 [Rx] Torsemide [Demadex] 40 mg PO TID #90 tablet 11/05/17 [Rx] Polyethylene Glycol 3350 [MiraLAX Powder Bulk 17.9 Oz] 1 scoop PO DAILY [History] Allergies/Adverse Reactions: 3 Allergy/AdvReac Type Severity Reaction Status Date / Time levofloxacin [From Levaquin] AdvReac Severe Nausea Verified 11/20/17 08:50 Mpslity-Aht-Jhg Reductase AdvReac Weakness Verified 11/20/17 08:50 Inhibitor [Statins] Date of admission: 11/19/17 23:02 Primary care physician: Satya Singh MD Consults: 11/21/17 14:59 Consult to Gastroenterology [CONS] Routine Consulting Provider: [facility] [place] Reason for Consult: anemia Call Completed: Yes Discharging clinician: Kaylee Okeefe Campos - Constitutional Vitals: Temp Pulse Resp BP Pulse Ox 98.0 F 84 16 118/63 96 11/21/17 15:43 11/21/17 15:43 11/21/17 15:43 11/21/17 15:43 11/21/17 15:43 General appearance: Present: cooperative, A&O X 3, pleasant, no acute distress Exam: Gen.: Vitals noted. No acute distress. AAOx3 HEENT: PERRL/EOMI, oropharynx clear, Normocephalic, atraumatic, MMM. Pale conjunctiva Cardiac: RRR, systolic murmur, +S1/S2 Pulmonary: CTA bilaterally, no wheezes, rales or rhonchi, equal chest expansion. Decreased lung sounds at bases Abdomen: soft, nontender, BS noted, no guarding Extremities: 3+ BLE edema, nontender calf, no cyanosis or clubbing Neuro: A&Ox3, moves all extremities, no focal deficits Psych: Appropriate mood and behavior Skin: multiple bruises. - Patient Status Disposition: Transfer Hospital Swing Bed Condition: Good - Discharge Instructions Follow Up With: Satya Singh MD [Primary Care Provider] - - Diet and Activity Activity: as per physical therapy
[2017-11-21 23:57] VITALS: BP 118/63
== END 2017-11-21 18:18 | disposition other institution (70) | DRG 812 ==
LOC: 2ANU 16:17 → EMEROOARM 16:17 → 2ANU 22:31 → SUATTDRO 23:02
PROVIDERS: ADMIT Pediatrics; ATTEND Internal Medicine